=== PATIENT | female | born 1940 | race Caucasian/White ===

== ENCOUNTER 2020-11-01 08:30 | Outpatient (CLI) | payer MEDICARE, SELFPAY ==
--- NOTE | 2020-11-01 08:45 | XRR_ITS ---
PROCEDURE INFORMATION: Exam: XR Lumbosacral Spine Exam date and time: 11/01/2020 8:45 AM Age: 80 years old Clinical indication: Low back pain; Patient HX: Pain radiating down lt. Leg. Has numbness in lt foot; Additional info: M54.5 - low back pain TECHNIQUE: Imaging protocol: XR of the lumbosacral spine. Views: 2 or 3 views. COMPARISON: No relevant prior studies available. FINDINGS: Bones/joints: 14 degrees leftward lumbar curvature. Degenerative endplate changes asymmetric to the right. The vertebral body stature is maintained. Disc space narrowing at L3-L4, L4-L5, and L5-S1. Facets are intact. Soft tissues: Unremarkable. Vasculature: Arterial calcifications. Calcifications in the mid abdomen are most likely phleboliths. XR/XR lumbar spine 2-3V* [id number] IMPRESSION: 1. No fracture or acute finding. 2. Scoliosis and degenerative changes.
--- NOTE | 2020-11-01 08:45 | USCV_ITS ---
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 Technologist: Polina White [place] [facility] [place] PAIN IN LEFT LEG Risk Factors: Previous Vascular Surgery: RIGHT LEFT BP: 160.0 / 71.00 BP: 169.0/ 69.00 0 0 Waveform Velocity (cm/s) Velocity (cm/s) Waveform Iliac Prox 80.6 Biphasic Iliac Mid 97.5 Biphasic Iliac Distal 102.2 Biphasic HR OPERATIONS ADVISOR 48.5 Biphasic SFA Prox 49.7 Biphasic SFA Mid 55.8 Biphasic SFA Dist 33.2 Biphasic POP 33.6 Monophasic RECOVERY ADVOCATE 28.0 Monophasic DPA 37.6 Monophasic FINDINGS RT BRACH 160/71 LT BRACH 169/69 LT RECOVERY ADVOCATE >220 LT DPA 120 Noncompressible vessels in the left ankle Moderate diffuse plaques in the iliac and femoral arteries on the left side CONCLUSIONS Noncompressible vessels in the left ankle Patent iliac, femoral, popliteal and infrapopliteal vessels on the left side Moderate diffuse plaques in the iliac and femoral arteries Consider TBI to further evaluate the peripheral arteries Dr David Clarke MD FAC (Electronically Signed) Final Date: 01 November 2020 14:44 S
[2020-11-01 11:15] LABS: 25 Hydroxy Vitamin D 89 ng/mL (30-100); Anion Gap 15.8 (5-19); Blood Urea Nitrogen 15 mg/dL (8-23); Calcium 9.4 mg/dL (8.5-10.5); Carbon Dioxide 25 mmol/L (22-29); Chloride 101 mmol/L (98-107); Chol HDL Ratio 2.31 mg/dL (0.0-4.40); Cholesterol 208 mg/dL (0-200); Glucose 81 mg/dL (65-115); HDL Cholesterol 90 mg/dL (60-100); LDL Cholesterol Calculated 106 mg/dL (50-129); LDL HDL Ratio 1.18 RATIO (0.00-3.22); Osmolality Calculated 284 mOsm/kg (285-295); Potassium 4.8 mmol/L (3.5-5.1); Sodium 137 mmol/L (136-145); Triglycerides 59 mg/dL (0-150)
== END 2020-11-01 08:31 | disposition home or self-care (01) ==
PROVIDERS: PCP Nurse Practitioner Family; Visit Provider Nurse Practitioner Family
DX: M54.5 Low back pain (principal); E55.9 Vitamin D deficiency, unspecified; I10 Essential (primary) hypertension; E78.5 Hyperlipidemia, unspecified; M41.86 Other forms of scoliosis, lumbar region; M79.605 Pain in left leg; I70.8 Atherosclerosis of other arteries
CPT/HCPCS: 36415; 72100; 80048; 80061; 82306; 93926

== ENCOUNTER → 2020-11-08 11:49 | Outpatient (BNVA) | payer MEDICARE, SELFPAY | PROVIDERS: PCP Nurse Practitioner Family; Referring Provider Nurse Practitioner Family; Visit Provider Specialist | DX: S62.102A Fracture of unspecified carpal bone, left wrist, initial encounter for closed fracture (principal); W19.XXXA Unspecified fall, initial encounter; Z46.89 Encounter for fitting and adjustment of other specified devices; S52.592D Other fractures of lower end of left radius, subsequent encounter for closed fracture with routine healing; X58.XXXD Exposure to other specified factors, subsequent encounter | CPT/HCPCS: 73110; 97760; L3982 ==

== ENCOUNTER 2020-11-08 16:01 | Outpatient (CLI) | payer MEDICARE, SELFPAY | END 2020-11-08 16:02 | disposition home or self-care (01) | LOC: SPT 16:02 | PROVIDERS: PCP Nurse Practitioner Family; Visit Provider Specialist | DX: Z46.89 Encounter for fitting and adjustment of other specified devices (principal); S52.592D Other fractures of lower end of left radius, subsequent encounter for closed fracture with routine healing; X58.XXXD Exposure to other specified factors, subsequent encounter | CPT/HCPCS: 97760; L3982 ==

== ENCOUNTER → 2020-11-22 08:17 | Outpatient (BNVA) | payer MEDICARE, SELFPAY | PROVIDERS: PCP Nurse Practitioner Family; Visit Provider Specialist | DX: S52.502A Unspecified fracture of the lower end of left radius, initial encounter for closed fracture (principal); S52.602A Unspecified fracture of lower end of left ulna, initial encounter for closed fracture; X58.XXXA Exposure to other specified factors, initial encounter | CPT/HCPCS: 73110 ==

== ENCOUNTER → 2020-12-15 09:58 | Outpatient (BNVA) | payer MEDICARE, SELFPAY | PROVIDERS: PCP Nurse Practitioner Family; Visit Provider Specialist | DX: S52.502D Unspecified fracture of the lower end of left radius, subsequent encounter for closed fracture with routine healing (principal); W19.XXXD Unspecified fall, subsequent encounter | CPT/HCPCS: 73110 ==

== ENCOUNTER 2021-01-12 14:45 | Outpatient (CLI) | payer MEDICARE, SELFPAY ==
--- NOTE | 2021-01-12 14:59 | XRR_ITS ---
PROCEDURE INFORMATION: Exam: XR Chest Exam date and time: 01/12/2021 2:59 PM Age: 80 years old Clinical indication: Shortness of breath; Prior surgery; Surgery type: Heart surgery; Patient HX: SOB, cough, leg weakness x 1.5 month. Heart monitor x 7 days, history of super ventricular tachcardia; Additional info: R06.02 - shortness of breath TECHNIQUE: Imaging protocol: XR of the chest. Views: 2 views. COMPARISON: No relevant prior studies available. FINDINGS: Tubes, catheters and devices: Recording device in the anterior mid chest wall. Lungs: Emphysema with mild chronic interstitial changes. Mild atelectasis in the lung bases. Multiple tiny calcified granulomas in both lungs. Pleural spaces: Unremarkable. No pleural effusion. No pneumothorax. Heart/Mediastinum: Unremarkable. No cardiomegaly. Bones/joints: Demineralization of the bones. Mild scoliosis. No fracture identified. XR/XR chest 2V* [id number] IMPRESSION: 1. No acute finding.
[2021-01-12 15:25] LABS: Basophils # 0.1 10^3/uL (0.0-0.1); Basophils % 1.1 %; Eosinophils # 0.3 10^3/uL (0.0-0.8); Eosinophils % 3.4 %; Hematocrit 35.3 % (37.0-47.0); Hemoglobin 11.7 g/dL (11.5-15.3); Lymphocytes # 1.5 10^3/uL (0.8-4.8); Lymphocytes % 21.1 %; Mean Corpuscular HGB Conc 33.1 g/dL (30.0-36.0); Mean Corpuscular Hemoglobin 32.1 pg (28.0-34.0); Mean Corpuscular Volume 96.7 fl (81-99); Monocytes % 13.7 %; Neutrophils # 4.41 10^3/uL (1.8-7.7); Neutrophils % 60.4 %; Nucleated Red Blood Cells % 0 %; Platelet Count 282 10^3/cmm (130-400); Red Blood Count 3.65 10^6/uL (4.1-5.3); Red Cell Distribution Width 11.9 % (12.1-15.1); White Blood Count 7.3 10^3/uL (4.0-10.0)
[2021-01-12 15:59] LABS: Alanine Aminotransferase 37 U/L (0-33); Albumin Level 3.9 g/dL (3.5-5.2); Alkaline Phosphatase 77 IU/L (35-105); Anion Gap 16.2 (5-19); Aspartate Amino Transferase 22 U/L (0-32); Carbon Dioxide 23 mmol/L (22-29); Chloride 98 mmol/L (98-107); Globulin 2.9 g/dL (1.3-4.6); Glucose 92 mg/dL (65-115); Potassium 4.2 mmol/L (3.5-5.1); Sodium 133 mmol/L (136-145); Total Bilirubin 0.2 mg/dL (0.15-1.2); Total Protein 6.8 g/dL (6.6-8.7)
[2021-01-12 16:17] LABS: Blood Urea Nitrogen 20 mg/dL (8-23); Calcium 9.4 mg/dL (8.5-10.5); Osmolality Calculated 278 mOsm/kg (285-295)
== END 2021-01-12 14:46 | disposition home or self-care (01) ==
PROVIDERS: PCP Nurse Practitioner Family; Visit Provider Nurse Practitioner Family
DX: R06.00 Dyspnea, unspecified (principal); R53.83 Other fatigue; R06.02 Shortness of breath
CPT/HCPCS: 71046; 80053; 85025

== ENCOUNTER → 2021-05-24 09:24 | Outpatient (BNVA) | payer MEDICARE, SELFPAY | PROVIDERS: PCP Nurse Practitioner Family; Visit Provider Nurse Practitioner Family | DX: R39.9 Unspecified symptoms and signs involving the genitourinary system (principal); R31.9 Hematuria, unspecified; R05.9 Cough, unspecified; R30.0 Dysuria; N39.0 Urinary tract infection, site not specified | CPT/HCPCS: 81000; 87086 ==

== ENCOUNTER → 2021-07-11 11:30 | Outpatient (BNVA) | payer MEDICARE, SELFPAY | PROVIDERS: PCP Nurse Practitioner Family; Visit Provider Internal Medicine Pulmonary Disease | DX: R05.9 Cough, unspecified (principal); R06.00 Dyspnea, unspecified | CPT/HCPCS: 87015; 87070; 87116; 87205; 87206; 87801 ==

== ENCOUNTER 2021-07-20 10:37 | Outpatient (CLI) | payer MEDICARE, SELFPAY ==
--- NOTE | 2021-07-20 11:00 | CT_ITS ---
WS: [id number] CT CHEST CT-HIGH RESOLUTION, NONCONTRAST. HISTORY: Covid one year ago. Persistent short of breath. Technique: High-resolution chest CT is performed in inspiration, expiration, supine and prone positio cori. All CT scans at [facility] use at least one of these dose optimization techniques: automated exposure control; mA and/or kV adjustment per patient size (includes targeted exams where dose is mat ched to clinical indication); or iterative reconstruction. DLP: 982.55 mGy.cm COMPARISON: Chest radiograph 01/12/2021 Findings: Persistent area of subsegmental atelectasis in the posterior RIGHT apex. Does not improve w ith prone positioning. There are a few very scattered micronodules throughout both lungs in the perip noel. These measure only 2 to 3 mm. Lungs are hyperinflated. No bronchiectasis or honeycombing. There is a spiculated soft tissue nodule with calcification in the RIGHT lower lobe measuring 16 x 13 mm. This mass is centrally positioned. There are few additional scattered calcified granulomata thro ughout both lungs. Contiguous axial imaging through the lungs is limited as there is significant lalita on artifact on several of the sequences. Heavy calcification thoracic aorta. No significant aneurysmal dilatation. Heart is moderately enlarge d. Mild dilatation of the RIGHT renal pelvis. This is probably an extrarenal pelvis the calyces are n ot dilated. Adrenal glands cannot be evaluated due to the significant breathing artifact. Does appear to be a prior cholecystectomy. CT/CT chest wo con [id number] Impression: 1. Quality of this examination is significantly limited by motion artifact. 2. No honeycombing or bronchiectasis. 3. Spiculated nodule RIGHT lower lobe centered towards the hilum. Mass measure s 16 x 13 mm and is suspicious for neoplasm. Recommend PET/CT imaging and [facility] hoscopy for tissue sampling. 4. Prior cholecystectomy.
== END 2021-07-20 10:38 | disposition home or self-care (01) ==
LOC: RAD 10:46
PROVIDERS: PCP Nurse Practitioner Family; Visit Provider Internal Medicine Pulmonary Disease
DX: R05.3 Chronic cough (principal); R06.02 Shortness of breath; Z86.16 Personal history of COVID-19; Z90.49 Acquired absence of other specified parts of digestive tract; R91.1 Solitary pulmonary nodule
CPT/HCPCS: 71250

== ENCOUNTER → 2021-07-21 10:24 | Outpatient (BNVA) | payer MEDICARE, SELFPAY | PROVIDERS: PCP Nurse Practitioner Family; Visit Provider Internal Medicine Pulmonary Disease | DX: J44.9 Chronic obstructive pulmonary disease, unspecified (principal); R06.00 Dyspnea, unspecified | CPT/HCPCS: 87635 ==

== ENCOUNTER 2021-07-28 11:09 | Outpatient (CLI) | payer MEDICARE, SELFPAY ==
--- NOTE | 2021-07-28 10:50 | PFTS_ITS ---
Date of Study:07/28/21 Date of Dictation: MECHANICS: Forced vital capacity (FVC) is . Forced expiratory volume in one second (FEV1) is . FEV1/FVC is . FLOW VOLUME LOOP: . LUNG VOLUMES: Total lung capacity (TLC) is . Residual volume (RV) is . DIFFUSING CAPACITY FOR CARBON MONOXIDE: . INTERPRETATION: The pulmonary function tests are . mechanics and lung volumes. Gas exchange (DLCO) is . MTDD
--- NOTE | 2021-07-28 13:10 | PFTS_ITS ---
Date of Study:07/28/21 Date of Dictation: MECHANICS: Forced vital capacity (FVC) is normal. Forced expiratory volume in one second (FEV1) is reduced. FEV1/FVC is reduced. FLOW VOLUME LOOP: Reduced flow at all lung volumes with significant scooping. LUNG VOLUMES: Total lung capacity (TLC) is normal. Residual volume (RV) is increased. DIFFUSING CAPACITY FOR CARBON MONOXIDE: Moderately reduced. INTERPRETATION: The postbronchodilator spirometry is consistent with moderate airflow obstruction. There is a significant postbronchodilator response. Lung volumes are consistent with air trapping. Gas exchange (DLCO) is moderately reduced. MTDD
[2021-07-28 13:12] VITALS: O2SAT 94; O2SAT 95
== END 2021-07-28 11:10 | disposition home or self-care (01) ==
PROVIDERS: PCP Nurse Practitioner Family; Visit Provider Internal Medicine Pulmonary Disease
DX: R06.00 Dyspnea, unspecified (principal); J44.9 Chronic obstructive pulmonary disease, unspecified
CPT/HCPCS: 94060; 94726; 94729

== ENCOUNTER → 2021-08-08 12:41 | Outpatient (BNVA) | payer MEDICARE, SELFPAY | PROVIDERS: PCP Nurse Practitioner Family; Visit Provider Nurse Practitioner Family | DX: R30.0 Dysuria (principal); R31.9 Hematuria, unspecified | CPT/HCPCS: 81000; 87086 ==

== ENCOUNTER 2021-08-10 08:41 | Outpatient (CLI) | payer MEDICARE, SELFPAY ==
--- NOTE | 2021-08-10 09:51 | N.ONRAD NP_ITS ---
Radiation Oncology Consultation Patient Name: Angella Walls Date of : 1940 Date of Service: 08/10/2021 Attending Physician: Glynn Vines M.D. Angella Walls was seen for consultation this morning at the request of Carlos Rankin M.D. regarding possible stereotactic ablative body radiotherapy for the management of a recently diagnosed lung cancer. He was evaluated by her primary care physician for a chronic cough. She was referred to Carlos Rankin M.D. for further management. A high-resolution thoracic CT scan obtained on July 20, 2021 demonstrated a 1.6 cm x 1.3 cm right lower lobe nodule. Also described were bilateral micronodules measuring 2 to 3 mm. A PET scan (independently visualized in [facility]) ordered on July 23, 2021 confirmed the right lower lobe solid nodule (SUV 8.4). There was no metastatic disease reported. Pulmonary function testing identified an FEV1 of 1.99 L (48% of predicted) and a DLCO 25.6 mL/min/mmHg (49% of predicted). On account of the patient's high risk status for pneumothorax and poor lung function, a biopsy was not performed. The patient was evaluated for stereotactic ablative body radiotherapy. I discussed with Ms. Walls the [place] [employer] clinical stage IA2 (T1bN0) lung cancer specific to her disease. She is aware that the National Comprehensive Cancer Network Guidelines recommend surgical resection in operable patients. However, for patients deemed medically inoperable without lymphadenopathy, stereotactic radiotherapy is preferable. I reviewed the RTOG 0236 phase II trial that enrolled non-small cell lung cancer patients with peripheral T1 and T2 and medical conditions precluding surgical treatment to SABR. The 3-year primary tumor local control of 97% with an overall median survival of 48 months. I also discussed the SPACE trial that randomized stage I non-small cell lung cancer patients to SABR or conventional fractionated radiotherapy. Progression free survival was improved and a significant decrement in adverse events were documented in the SABR treatment arm. I would endorse an ultra-hypofractionated course of stereotactic radiotherapy. A 4-dimensional computed tomographic with contrast will be acquired for radiotherapy planning to delineate the gross tumor volume. The potential toxicities of stereotactic body radiotherapy to the lung were reviewed. The patient has verbalized understanding and would like to proceed as recommended. The patient's medical treatment plan was discussed with Carlos Rankin M.D. Signed by: Glynn Vines 08/10/2021 9:50:17 AM
[2021-08-10 10:15] LABS: Basophils # 0.1 10^3/uL (0.0-0.1); Basophils % 0.8 %; Eosinophils # 0.6 10^3/uL (0.0-0.8); Hematocrit 32.9 % (37.0-47.0); Hemoglobin 11.2 g/dL (11.5-15.3); Lymphocytes # 1.3 10^3/uL (0.8-4.8); Lymphocytes % 16.1 %; Mean Corpuscular Hemoglobin 31.9 pg (28.0-34.0); Mean Corpuscular Volume 93.7 fl (81-99); Mean Platelet Volume 8.4 fL (7.4-10.4); Monocytes # 1.1 10^3/uL (0.2-0.9); Monocytes % 12.6 %; Neutrophils # 5.23 10^3/uL (1.8-7.7); Neutrophils % 62.8 %; Nucleated Red Blood Cells % 0 %; Platelet Count 293 10^3/cmm (130-400); Red Blood Count 3.51 10^6/uL (4.1-5.3); Red Cell Distribution Width 12.9 % (12.1-15.1); White Blood Count 8.3 10^3/uL (4.0-10.0)
[2021-08-10 10:54] LABS: Alanine Aminotransferase 26 U/L (0-33); Albumin Level 4.3 g/dL (3.5-5.2); Alkaline Phosphatase 65 IU/L (35-105); Blood Urea Nitrogen 15 mg/dL (8-23); Calcium 9.9 mg/dL (8.5-10.5); Carbon Dioxide 24 mmol/L (22-29); Chloride 94 mmol/L (98-107); Globulin 3.2 g/dL (1.3-4.6); Glucose 89 mg/dL (65-115); Osmolality Calculated 272 mOsm/kg (285-295); Sodium 131 mmol/L (136-145); Total Bilirubin 0.3 mg/dL (0.15-1.2); Total Protein 7.5 g/dL (6.6-8.7)
[2021-08-10 11:02] LABS: Anion Gap 17.8 (5-19); Potassium 4.8 mmol/L (3.5-5.1)
[2021-08-10 11:25] LABS: Aspartate Amino Transferase 20 U/L (0-32)
== END 2021-08-10 08:42 | disposition home or self-care (01) ==
PROVIDERS: PCP Nurse Practitioner Family; Visit Provider Radiology Radiation Oncology
DX: C34.31 Malignant neoplasm of lower lobe, right bronchus or lung (principal)
CPT/HCPCS: 36415; 80053; 85025

== ENCOUNTER 2021-08-19 06:31 | Outpatient (RCR) | payer MEDICARE, SELFPAY ==
--- NOTE | 2021-08-15 | CT_ITS ---
Radiation Therapy Planning CT images; total exam DLP: 573.21 mGy-cm MTDD
== END 2021-08-20 23:59 | disposition home or self-care (01) ==
LOC: ONCMED 06:31
PROVIDERS: PCP Nurse Practitioner Family; Visit Provider Radiology Radiation Oncology
DX: Z51.0 Encounter for antineoplastic radiation therapy (principal); C34.31 Malignant neoplasm of lower lobe, right bronchus or lung; C78.02 Secondary malignant neoplasm of left lung; Z79.899 Other long term (current) drug therapy
CPT/HCPCS: 77300; 77301; 77334; 77338; 77373; 77470; Q9967

== ENCOUNTER 2021-08-22 08:06 | Oncology outpatient (recurring) (ONCR) | payer MEDICARE, SELFPAY ==
--- NOTE | 2021-08-22 08:44 | N.ONRD TS_ITS ---
Stereotactic Ablative Radiotherapy Treatment Summary Patient Name: Angella Walls Date of : 1940 Date of Service: 08/22/2021 Attending Physician: Glynn Vines M.D. Angella Walls has completed stereotactic ablative body radiotherapy for the management of a clinical stage IA2 (T1bN0) lung cancer. She was evaluated by her primary care physician for a chronic cough. A high-resolution thoracic CT scan obtained on July 20, 2021 demonstrated a 1.6 cm x 1.3 cm right lower lobe nodule. Also described were bilateral micronodules measuring 2 to 3 mm. A PET scan ordered on July 23, 2021 confirmed the right lower lobe solid nodule (SUV 8.4). There was no metastatic disease reported. Pulmonary function testing identified an FEV1 of 1.99 L (48% of predicted) and a DLCO 25.6 mL/min/mmHg (49% of predicted). On account of the patient's high risk status for pneumothorax and poor lung function, a biopsy was not performed. SABR was delivered between the dates of August 17, 2021 through August 22, 2021. A prescribed dose of 54 Gy was delivered in three fractions encompassing 7 elapsed days. The right lower-lobe lesion was treated utilizing an intensity modulated radiotherapy plan with a step and shoot treatment technique. The plan required seven gantry angles (160???, 180???, 200???, 220???, 240???, 280???, and 300??? with a collimator rotation of 0??? in a partial arc design. The field sizes measured spanned 4.5 cm x 3.5 cm to 5.3 cm x 3.5 cm. The SSDs measured a minimum of 86.2 cm to a maximum of 93.2 cm. The ports delivered 1137 MU, 757 MU, 878 MU, 1134 MU, 923 MU, 883 MU, and 774 MU corresponding to the gantry angles described. Low energy photons were prescribed. All treatments were performed with the Accertify linear accelerator and an isocentric technique. The dose was calculated by Anisotropic Analytic Algorithm with the plan normalized to deliver 100% of the prescription dose to 95% of the planning target volume. Signed by: Glynn Vines 08/22/2021 8:43:08 AM
--- NOTE | 2021-08-22 09:16 | ONCRAD TMN_ITS ---
Stereotactic Ablative Radiotherapy Treatment Management Note Patient Name: Angella Walls Date of : 1940 Date of Service: 08/22/2021 Attending Physician: Glynn Vines M.D. Angella Walls is an 81 year-old white female diagnosed with a recently diagnosed clinical stage IA2 (T1bN0) lung cancer. She was evaluated by her primary care physician for a chronic cough. A high-resolution thoracic CT scan obtained on July 20, 2021 demonstrated a 1.6 cm x 1.3 cm right lower lobe nodule. Also described were bilateral micronodules measuring 2 to 3 mm. A PET scan ordered on July 23, 2021 confirmed the right lower lobe solid nodule (SUV 8.4). There was no metastatic disease reported. Pulmonary function testing identified an FEV1 of 1.99 L (48% of predicted) and a DLCO 25.6 mL/min/mmHg (49% of predicted). On account of the patient's high risk status for pneumothorax and poor lung function, a biopsy was not performed. The patient has received 54 Gy of a prescribed 54 [place] (SABR) delivered with an intensity modulated radiotherapy plan utilizing a step and shoot treatment technique. Upon review of systems, she denied any changes in her pulmonary function. On physical examination, the patient weighed 121 lbs. Her temperature was 96.9 ???F and the blood pressure was 148/62 mmHg. The pulse was 62 bpm and her respiratory rate was 20. The oxygen saturation while breathing room air was 98%. There was no erythema within the treatment barth. Stereotactic ablative body radiotherapy was completed today. She will return for post-radiotherapy evaluation in 1 month. Signed by: Glynn Vines 08/22/2021 9:15:25 AM
== END 2021-09-20 23:59 | disposition home or self-care (01) ==
PROVIDERS: PCP Nurse Practitioner Family; Visit Provider Radiology Radiation Oncology
DX: Z51.0 Encounter for antineoplastic radiation therapy (principal); C34.31 Malignant neoplasm of lower lobe, right bronchus or lung; Z79.899 Other long term (current) drug therapy
CPT/HCPCS: 77373; 77435; 99215

== ENCOUNTER 2021-09-21 09:43 | Oncology outpatient (recurring) (ONCR) | payer MEDICARE, SELFPAY ==
--- NOTE | 2021-09-21 10:19 | ONCRAD EPV_ITS ---
Radiation Oncology Follow-Up Note Patient Name: Angella Walls Date of : 1940 Date of Service: 09/21/2021 Attending Physician: Glynn Vines M.D. Angella Walls returned to my office this morning for a routinely scheduled follow-up appointment. She completed stereotactic ablative body radiotherapy in August for the management of a clinical stage IA2 (T1bN0) lung cancer. She was evaluated by her primary care physician for a chronic cough. A high-resolution thoracic CT scan obtained on July 20, 2021 demonstrated a 1.6 cm x 1.3 cm right lower lobe nodule. Also described were bilateral micronodules measuring 2 to 3 mm. A PET scan ordered on July 23, 2021 confirmed the right lower lobe solid nodule (SUV 8.4). There was no metastatic disease reported. Pulmonary function testing identified an FEV1 of 1.99 L (48% of predicted) and a DLCO 25.6 mL/min/mmHg (49% of predicted). On account of the patient's high risk status for pneumothorax and poor lung function, a biopsy was not performed. SABR was delivered between the dates of August 17, 2021 through August 22, 2021. A prescribed dose of 54 Gy was delivered in three fractions encompassing 7 elapsed days. On review of systems, she denied any new pulmonary complaints. On physical examination, she weighed 121 lbs. The temperature was 96.9???F and her blood pressure was 137/53 mmHg. The pulse was 53 bpm and her respiratory rate was 18 breaths per minute. Oxygen saturation while breathing ambient air was 99 %. Decreased breath sounds were auscultated in the right posterior lung barth. In summary, Ms. Walls returned for a routine post-radiotherapy follow-up. She will be scheduled for CT imaging to assess treatment response consistent with NCCN Guidelines. Signed by: Dr. Glynn Vines 09/21/2021 10:18:06 AM
== END 2021-10-20 23:59 | disposition home or self-care (01) ==
PROVIDERS: PCP Nurse Practitioner Family; Visit Provider Radiology Radiation Oncology
DX: C34.31 Malignant neoplasm of lower lobe, right bronchus or lung (principal)

== ENCOUNTER → 2021-10-05 10:00 | Outpatient (BNVA) | payer MEDICARE, SELFPAY | PROVIDERS: PCP Nurse Practitioner Family; Visit Provider Internal Medicine Pulmonary Disease | DX: J44.9 Chronic obstructive pulmonary disease, unspecified (principal); R06.02 Shortness of breath; R05.9 Cough, unspecified; Z87.891 Personal history of nicotine dependence; R06.00 Dyspnea, unspecified; I35.0 Nonrheumatic aortic (valve) stenosis; I48.20 Chronic atrial fibrillation, unspecified; Z79.01 Long term (current) use of anticoagulants | CPT/HCPCS: 82785; 85025; 86003; 87070; 87205 ==

== ENCOUNTER → 2021-10-11 09:55 | Outpatient (BNVA) | payer MEDICARE, SELFPAY | PROVIDERS: PCP Nurse Practitioner Family; Visit Provider Internal Medicine Pulmonary Disease | DX: J44.9 Chronic obstructive pulmonary disease, unspecified (principal) | CPT/HCPCS: 87070; 87077; 87184; 87205 ==

== ENCOUNTER → 2021-11-02 08:58 | Outpatient (BNVA) | payer MEDICARE, SELFPAY | PROVIDERS: PCP Nurse Practitioner Family; Visit Provider Internal Medicine Cardiovascular Disease | DX: E78.5 Hyperlipidemia, unspecified (principal); Z79.899 Other long term (current) drug therapy | CPT/HCPCS: 80061; 84450; 84460 ==

== ENCOUNTER 2021-11-22 10:40 | Outpatient (CLI) | payer MEDICARE, SELFPAY ==
--- NOTE | 2021-11-22 10:30 | CT_ITS ---
WS: [id number] CT CHEST TECHNIQUE: Noncontrast CT of the chest with coronal and sagittal reformatted images. CLINICAL INFORMATION: Follow-up lung cancer s/p SABR COMPARISON: PET/CT July 23, [address] chest June 2021 DLP: 566.[address] scans at [facility] use at least one of these dose optimization techniques: automated e xposure control; mA and/or kV adjustment per patient size (includes targeted exams where dose is matc hed to clinical indication); or iterative reconstruction. FINDINGS: Moderate chronic emphysematous changes. No acute pulmonary infiltrates. Fibrosis in the lung apices. Normal caliber thoracic aorta. Moderate aortic calcification. Coronary calcification. No mediastinal or hilar lymphadenopathy. Calcified anterior mediastinal and RIGHT hilar lymph nodes. Previously described FDG avid RIGHT lower lobe pulmonary nodule along the inferior hilum has decreas ed in size today. This measures approximately 7 mm compared to 16 mm previous. Associated increased s piculation about the nodule likely due to treatment-related changes. Findings compatible with interva l response to therapy. No evidence of progression. Normal GE junction. Cholecystectomy clips. Mild thoracic curve. Mild thoracic kyphosis. No axillary lymphadenopathy. Gallbladder and adrenal glands are normal. Fatty atrophy of the pancreas. CT/CT chest wo con [id number] IMPRESSION: 1. Residual RIGHT lower lobe spiculated nodule about the RIGHT inferior hilum today measuring 7 mm improved from previous consistent with interval response t o therapy. Recommend continued surveillance post treatment. Previously this jc sured 16 mm on the prior PET/CT. 2. No evidence of progressed disease. 3. Dense aortic calcification. 4. No mediastinal or hilar lymphadenopathy. 5. Prior cholecystectomy.
== END 2021-11-22 10:41 | disposition home or self-care (01) ==
LOC: RAD 10:40
PROVIDERS: PCP Nurse Practitioner Family; Visit Provider Radiology Radiation Oncology
DX: C34.90 Malignant neoplasm of unspecified part of unspecified bronchus or lung (principal); R91.1 Solitary pulmonary nodule; Z90.49 Acquired absence of other specified parts of digestive tract
CPT/HCPCS: 71250

== ENCOUNTER 2021-11-25 09:52 | Oncology outpatient (recurring) (ONCR) | payer MEDICARE, SELFPAY ==
--- NOTE | 2021-11-25 10:21 | ONCRAD EPV_ITS ---
Radiation Oncology Follow-Up Note Patient Name: Angella Walls Date of : 1940 Date of Service: 11/25/2021 Attending Physician: Glynn Vines M.D. Angella Walls returned to my office this morning for a routinely scheduled follow-up appointment. She completed stereotactic ablative body radiotherapy in August for the management of a clinical stage IA2 (T1bN0) lung cancer. She was evaluated by her primary care physician for a chronic cough. A high-resolution thoracic CT scan obtained on July 20, 2021 demonstrated a 1.6 cm x 1.3 cm right lower lobe nodule. Also described were bilateral micronodules measuring 2 to 3 mm. A PET scan ordered on July 23, 2021 confirmed the right lower lobe solid nodule (SUV 8.4). There was no metastatic disease reported. Pulmonary function testing identified an FEV1 of 1.99 L (48% of predicted) and a DLCO 25.6 mL/min/mmHg (49% of predicted). On account of the patient's high risk status for pneumothorax and poor lung function, a biopsy was not performed. SABR was delivered between the dates of August 17, 2021 through August 22, 2021. A prescribed dose of 54 Gy was delivered in three fractions encompassing [address] scan ordered on November 22, 2021 (independently reviewed in [facility]) described a reduction in the size of the right lower-lobe nodule (measured 7 mm). On review of systems, she denied any new pulmonary complaints. On physical examination, she weighed 119 lbs. The temperature was 97.4???F and her blood pressure was 164/59 mmHg. The pulse was 59 bpm and her respiratory rate was 18 breaths per minute. Oxygen saturation while breathing ambient air was 98 %. Bronchovesicular breath sounds were auscultated. In summary, Ms. Walls returned for a routine post-radiotherapy follow-up. She will continue follow-up consistent with NCCN Guidelines. I will order a thoracic CT scan in 3 months. Signed by: Dr. Glynn Vines 11/25/2021 10:19:51 AM
== END 2021-12-21 23:59 | disposition home or self-care (01) ==
PROVIDERS: PCP Nurse Practitioner Family; Visit Provider Radiology Radiation Oncology
DX: Z08 Encounter for follow-up examination after completed treatment for malignant neoplasm (principal); Z85.118 Personal history of other malignant neoplasm of bronchus and lung; R05.3 Chronic cough; Z92.3 Personal history of irradiation
CPT/HCPCS: 99213

== ENCOUNTER → 2021-12-01 09:40 | Outpatient (BNVA) | payer MEDICARE, SELFPAY | PROVIDERS: PCP Nurse Practitioner Family; Visit Provider Nurse Practitioner Family | DX: R30.0 Dysuria (principal); J06.9 Acute upper respiratory infection, unspecified | CPT/HCPCS: 81000 ==

== ENCOUNTER → 2021-12-21 08:18 | Outpatient (BNVA) | payer MEDICARE, SELFPAY | PROVIDERS: PCP Nurse Practitioner Family; Visit Provider Internal Medicine Pulmonary Disease | DX: J44.9 Chronic obstructive pulmonary disease, unspecified (principal); R05.9 Cough, unspecified; Z87.891 Personal history of nicotine dependence; R06.00 Dyspnea, unspecified; I35.0 Nonrheumatic aortic (valve) stenosis; I48.20 Chronic atrial fibrillation, unspecified; Z79.01 Long term (current) use of anticoagulants; J45.909 Unspecified asthma, uncomplicated; R91.1 Solitary pulmonary nodule; Z86.16 Personal history of COVID-19 | CPT/HCPCS: 99214 ==

== ENCOUNTER → 2022-01-10 10:28 | Outpatient (BNVA) | payer MEDICARE, SELFPAY | PROVIDERS: PCP Nurse Practitioner Family; Visit Provider Nurse Practitioner Family | DX: N39.0 Urinary tract infection, site not specified (principal); R31.9 Hematuria, unspecified | CPT/HCPCS: 81000; 87086 ==

== ENCOUNTER 2022-02-24 07:35 | Outpatient (CLI) | payer MEDICARE, SELFPAY ==
--- NOTE | 2022-02-24 08:00 | CT_ITS ---
WS: [id number] CT scan of the chest without IV contrast, additional two-dimensional coronal and sagittal reconstruct ion was performed. 02/24/2022 Clinical Data: Follow-up SABR Comparison: CT chest, 07/20/2021. DLP: 564.[address] scans at [facility] use at least one of these dose optimization techniques: automated e xposure control; mA and/or kV adjustment per patient size (includes targeted exams where dose is matc hed to clinical indication); or iterative reconstruction. Findings: Right lower lobe spiculated nodule is seen best on image 35 of 71 on the axial scan. The nodule now m easures 0.9 x 1.1 cm in greatest diameter which is probably a response to therapy. There is periphera l opacity in the right lower lobe which is probably atelectasis following treatment. No new nodules, masses or effusions are seen. The heart size is normal with no pericardial effusion. There are coronary artery and valvular calcifications present. The pulmonary arterial system and thor acic aorta demonstrate no abnormalities or dilatations. There is no axillary or significant mediastin al adenopathy. The upper abdomen shows no change from before. The bony thorax remains the same. CT/CT chest wo con [id number] Impression: 1. Slight decrease in size of the right lower lobe nodule 2 0.9 x 1.1 cm. 2. Peripheral right lower lobe opacity which is probably atelectasis.
== END 2022-02-24 07:36 | disposition home or self-care (01) ==
PROVIDERS: PCP Nurse Practitioner Family; Visit Provider Radiology Radiation Oncology
DX: C34.30 Malignant neoplasm of lower lobe, unspecified bronchus or lung (principal)
CPT/HCPCS: 71250

== ENCOUNTER 2022-03-01 08:41 | Oncology outpatient (recurring) (ONCR) | payer MEDICARE, SELFPAY ==
--- NOTE | 2022-03-01 09:25 | ONCRAD EPV_ITS ---
Radiation Oncology Follow-Up Note Patient Name: Angella Walls Date of : 1940 Date of Service: 03/01/2022 Attending Physician: Glynn Vines M.D. Angella Walls returned to my office this morning for a routinely scheduled follow-up appointment. She completed stereotactic ablative body radiotherapy in August for the management of a clinical stage IA2 (T1bN0) lung cancer. She was evaluated by her primary care physician for a chronic cough. A high-resolution thoracic CT scan obtained on July 20, 2021 demonstrated a 1.6 cm x 1.3 cm right lower lobe nodule. Also described were bilateral micronodules measuring 2 to 3 mm. A PET scan ordered on July 23, 2021 confirmed the right lower lobe solid nodule (SUV 8.4). There was no metastatic disease reported. Pulmonary function testing identified an FEV1 of 1.99 L (48% of predicted) and a DLCO 25.6 mL/min/mmHg (49% of predicted). On account of the patient's high risk status for pneumothorax and poor lung function, a biopsy was not performed. SABR was delivered between the dates of August 17, 2021 through August 22, 2021. A prescribed dose of 54 Gy was delivered in three fractions encompassing [address] scan (independently reviewed in [facility]) ordered on February 24, 2022 described a reduction in the size of the right lower-lobe nodule (measured 0.9 cm x 1.1 cm). On review of systems, she denied any new pulmonary complaints. On physical examination, she weighed 122 lbs. The temperature was 97.2???F and her blood pressure was 167/57 mmHg. The pulse was 75 bpm and her respiratory rate was 18 breaths per minute. Oxygen saturation while breathing ambient air was 97 %. In summary, Ms. Walls returned for a routine post-radiotherapy follow-up. She will continue follow-up consistent with NCCN Guidelines. I will order a thoracic CT scan in 3 months. Signed by: Dr. Glynn Vines 03/01/2022 9:23:46 AM
== END 2022-03-22 23:59 | disposition home or self-care (01) ==
PROVIDERS: PCP Nurse Practitioner Family; Visit Provider Radiology Radiation Oncology
DX: Z08 Encounter for follow-up examination after completed treatment for malignant neoplasm (principal); Z85.118 Personal history of other malignant neoplasm of bronchus and lung; Z92.3 Personal history of irradiation
CPT/HCPCS: 99213

== ENCOUNTER → 2022-03-08 09:17 | Outpatient (BNVA) | payer MEDICARE, SELFPAY | PROVIDERS: PCP Nurse Practitioner Family; Visit Provider Internal Medicine Pulmonary Disease | DX: R05.9 Cough, unspecified (principal); J44.9 Chronic obstructive pulmonary disease, unspecified; Z87.891 Personal history of nicotine dependence; R06.00 Dyspnea, unspecified; I35.0 Nonrheumatic aortic (valve) stenosis; I48.20 Chronic atrial fibrillation, unspecified; Z79.01 Long term (current) use of anticoagulants; J45.909 Unspecified asthma, uncomplicated; J82.83 Eosinophilic asthma | CPT/HCPCS: 99214 ==

== ENCOUNTER → 2022-04-20 15:30 | Outpatient (BNVA) | payer MEDICARE, SELFPAY | PROVIDERS: PCP Nurse Practitioner Family; Visit Provider Nurse Practitioner Family | DX: Z11.52 Encounter for screening for COVID-19 (principal); J02.9 Acute pharyngitis, unspecified; J06.9 Acute upper respiratory infection, unspecified | CPT/HCPCS: 87426; 87880 ==

== ENCOUNTER 2022-05-14 08:26 | Emergency (ER) | payer MEDICARE, SELFPAY ==
[2022-05-14 08:32] VITALS: BP 102/43; PULSE 71; RESP 18; TEMP 36.9
--- NOTE | 2022-05-14 08:38 | W.ED.GENADLT ---
Documented by User: Josy Wheeler PA-C 05/14/22 13:59 HPI - General Adult General: Chief complaint: General Medical Stated complaint: right side pain Time Seen by Provider: 05/14/22 08:37 Source: patient Mode of arrival: ambulatory Limitations: no limitations History of Present Illness: 82-year-old female with a history of COPD, lung cancer, hypertension, and A. fib presents to the ER today for not feeling well and right rib pain. Patient reports she has not been feeling well for the last several days. Family member in the room also notes patient has had a decreased appetite and overall not feeling well for several days. 2 days ago patient reports she nearly fell and went to grab something to hang on with her left arm. Patient reports she did not fall completely down and did not hit anything. At the time she had no immediate pain. By the next day patient started having right rib pain. Patient reports the pain in the right ribs radiates into her back. She reports it is worse with movement and deep breaths. Patient reports she has a cough that is slightly worse than her normal which makes the pain worse. She denies any fever or chills. She is short of breath however reports this is somewhat chronic. Patient is taking her inhalers at home as prescribed in addition to her nebulizer. She denies any recent sick contacts. Patient reports she was diagnosed with COVID April 22 however after several days felt back to normal. Review of Systems General: Reports: 10 or more systems reviewed and unremarkable except in HPI and below PFSH ED PFSH: Medical History Aortic stenosis Asthma-COPD overlap syndrome Chronic anticoagulation COPD (chronic obstructive pulmonary disease) Exertional dyspnea Fracture of distal end of left radius and ulna HTN (hypertension) Hx of cardiac murmur PVD (peripheral vascular disease) Surgical History History of hernia repair History of hysterectomy Family History Mother CAD (coronary artery disease) Stroke Father CAD (coronary artery disease) Lung disease Brother Diabetes Social History Smoking and tobacco status: former smoker Quit status (tobacco): has quit using tobacco Year quit tobacco: quit 1985 Former quit date comment: 1 ppd x 30 years Alcohol intake: never History of recent travel: Yes Current gender identity: Female Physical Exam Const: COMMON NORMALS: average body habitus, patient oriented x3, no limitations and alert; apparent distress (mild discomfort, mostly with deep breaths and movement) HENMT: COMMON NORMALS: normocephalic, atraumatic, external ears normal, Normal external nose present and moist oral mucous membranes HEAD & SCALP: normocephalic and atraumatic NOSE: Normal external nose present EXTERNAL EAR: Yes external ears normal Eye: COMMON NORMALS: conjunctivae normal CONJUNCTIVA: Yes conjunctivae normal Neck/C-Spine: COMMON NORMALS: full ROM and no lymphadenopathy Chest: OTHER: Patient has right lower chest tenderness to palpation. This is more lateral and at the lower level of the right breast wrapping into the back. Resp: COMMON NORMALS: normal respiratory effort and No retractions Cardio: COMMON NORMALS: regular rate, regular rhythm and No murmurs present (Cardio) RATE: regular rate RHYTHM: regular rhythm GI: COMMON NORMALS: Normal to inspection, nondistended, normoactive bowel sounds present, Soft to palpation and non-tender PALPATION: Yes Soft to palpation Back/Pelvis: COMMON NORMALS: no thoracic nor lumbar tenderness and thoraco-lumbar ROM normal Extremity: COMMON NORMALS: normal to inspection and full ROM Neuro: COMMON NORMALS: patient oriented x3 SENSORIUM/ORIENTATION: Yes alert Psych: COMMON NORMALS: mental status grossly normal, Normal thought process present and cooperative THOUGHT PROCESS: Normal thought process present Skin: COMMON NORMALS: no rashes or lesions noted and no wounds GENERAL SKIN EXAM: no rashes or lesions noted Course ED course: Patient initially reported right rib pain however admits to feeling not well prior to the near fall she had 2 days ago that caused the right rib pain. Patient has generalized weakness and decreased appetite. She does have a history of right lung cancer however had a scan done in March which showed everything was stable. We will do a general work-up today given patient's symptoms. We will do a chest x-ray and right rib study in addition to lab work. Patient's blood pressure is borderline low in ER today. Family does reports she typically runs in the 40-50 range diastolic. She has not been drinking and eating well for the last several days so we will go ahead and do fluids also to see if that improves. On room air, patient is satting 86-90 so we are going to go ahead and put patient on 2 L of oxygen at this time. I suspect some of this is due to the pain with deep breaths. Reevaluation(s): Reevaluation #1: Patient's chest x-ray did not indicate any abnormalities however given pain a CT was recommended. CT was completed and did show that the spiculated mass has almost doubled in size. Patient also has small pleural effusions. Findings were discussed with family. Time: 12:10 Reevaluation #2: I spoke with Dr. Ku regarding possible admission for hypoxia. Patient is requiring 3 L of oxygen at this time to maintain sats of [address] Ku feels that patient is okay to go home with oxygen today. Dr. Larsen can then follow-up with patient later this week. Time: 12:12 Reevaluation #3: I spoke with Dr. Larsen who does recommend patient be sent home on oxygen. His office will contact patient tomorrow regarding a follow-up this week. We will also send patient home with pain medication for the right rib pain. Time: 12:19 Additional Reevaluation(s): Dr. Larsen called back and after reviewing more patient's chart he would like patient placed on an antibiotic and an NSAID in addition to the [place]. He is concerned there could be some infection causing the pleural effusion, possibly from the recent COVID.. Vital Signs: Vital signs: Vital Signs Temperature 98.4 F 05/14/22 14:35 Pulse Rate 68 05/14/22 14:35 Respiratory Rate 17 05/14/22 14:35 Blood Pressure 115/50 05/14/22 14:35 Pulse Oximetry 95 05/14/22 14:35 Oxygen Delivery Me thod 05/14/22 13:57 Oxygen Flow Rate 2 05/14/22 13:57 MDM - General Adult Medical Decision Making Patient had a very slightly bumped white count. She also had a slightly low sodium however reports that is chronic. X-ray did not indicate any abnormalities however CT was performed given pain. It is noted on CT patient has some mild pleural effusions on the right side in addition to increased size of the tumor in the right lung. No fractures were visualized on CT either. I suspect patient's pain is secondary to the pleural effusion and possibly the tumor. Patient was also hypoxic the entire time she was in the ER. She required 2 to 3 L to stay 94% or above. We considered admission however Dr. Ku and Dr. Larsen felt patient was okay to go home with home oxygen. Dr. Fraser office will contact patient tomorrow regarding an appointment this week. Patient also sent home on Levaquin per Dr. Larsen and pain medication. For any new or worsening symptoms, please return to the ER. Family and patient verbalized understanding and were in agreement with this treatment plan. Lab Data 05/14/22 09:15 05/14/22 09:15 Radiology Impressions Chest X-Ray 05/14/22 08:53 IMPRESSION: 1. There is horizontal platelike scarring in the superior segment of the right lower lobe following the stereotactic ablative radiotherapy. 2. The hemidiaphragms are low and flattened. Ribs X-Ray 05/14/22 08:53 IMPRESSION: No right rib fracture is identified. If clinically indicated, CT would be more sensitive. Chest CT 05/14/22 10:33 IMPRESSION: 1. No right rib fracture is identified. The thoracic spine is intact. 2. Small bilateral pleural effusions are new since the last CT on 02/24/2022. 3. A spiculated pulmonary nodule in the superior segment of the right lower lobe is larger than it was on 02/24/2022. It is 2.0 x 1.6 x 1.4 cm (TR x AP x CC) (previously 1.0 x 0.7 x 0.8 cm on 02/24/2022) (series 7, image 33 and series 4, image 37). It is suggestive of recurrent malignancy following stereotactic ablated radiotherapy. PET/CT may be helpful for confirmation. A horizontal opacity extending transversely through the lesion is consistent with scarring from radiotherapy. Laboratory Results WBC 10.2 10^3/uL (4.0-10.0) H 05/14/22 09:15 RBC 3.44 10^6/uL (4.1-5.3) L 05/14/22 09:15 Hgb 10.7 g/dL (11.5-15.3) L 05/14/22 09:15 Hct 32.9 % (37.0-47.0) L 05/14/22 09:15 MCV 95.6 fl (81-99) 05/14/22 09:15 MCH 31.1 pg (28.0-34.0) 05/14/22 09:15 MCHC 32.5 g/dL (30.0-36.0) 05/14/22 09:15 RDW 12.4 % (12.1-15.1) 05/14/22 09:15 Plt Count 312 10^3/cmm (130-400) 05/14/22 09:15 MPV 8.9 fL (7.4-10.4) 05/14/22 09:15 Neut % (Auto) 73.9 % 05/14/22 09:15 Lymph % (Auto) 9.1 % 05/14/22 09:15 [place] % (Auto) 14.1 % 05/14/22 09:15 Eos % (Auto) 1.9 % 05/14/22 09:15 Baso % (Auto) 0.6 % 05/14/22 09:15 Neut # (Auto) 7.52 10^3/uL (1.8-7.7) 05/14/22 09:15 Lymph # (Auto) 0.9 10^3/uL (0.8-4.8) 05/14/22 09:15 [place] # (Auto) 1.4 10^3/uL (0.2-0.9) H 05/14/22 09:15 Eos # (Auto) 0.2 10^3/uL (0.0-0.8) 05/14/22 09:15 Baso # (Auto) 0.1 10^3/uL (0.0-0.1) 05/14/22 09:15 Nucleated RBC % (auto) 0 % 05/14/22 09:15 Nucleated RBCs # 0.0 /100WBC 05/14/22 09:15 Specimen Type Arterial 05/14/22 09:33 Sample Site Radial, left 05/14/22 09:33 ABG pH 7.46 (7.35-7.45) H 05/14/22 09:33 ABG pCO2 33.8 mmHg (35-45) L 05/14/22 09:33 ABG pO2 58.9 mmHg (80.0-100.0) L 05/14/22 09:33 ABG HCO3 24.2 mmol/L (22-26) 05/14/22 09:33 ABG O2 Saturation 92.0 05/14/22 09:33 ABG Base Excess 0.7 mmol/L (-2.0-2.0) 05/14/22 09:33 Matt Test Pos 05/14/22 09:33 A-a O2 Gradient 6.3 mmHg (5-10) 05/14/22 09:33 Hematocrit 31.9 % (37-47) L 05/14/22 09:33 Hgb O2 Saturation 90.1 % (95-100) L 05/14/22 09:33 Carboxyhemoglobin 1.8 %THgb (0.4-20.1) 05/14/22 09:33 Methemoglobin 0.4 % (0.4-1.5) 05/14/22 09:33 Total Hemoglobin 10.4 g/dL (12-16) L 05/14/22 09:33 Sodium 130.0 mmol/L (131-143) L 05/14/22 09:33 Potassium 4.1 mmol/L (3.5-5.0) 05/14/22 09:33 Glucose 107.0 mg/dL (70-115) 05/14/22 09:33 Ionized Calcium 1.2 mmol/L (1.1-1.4) 05/14/22 09:33 O2 Delivery Device Nc 05/14/22 09:33 O2 Liters/Min 2.0 % 05/14/22 09:33 Director Speech Language ID [place] 05/14/22 09:33 Sodium 129 mmol/L (136-145) L 05/14/22 09:15 Potassium 4.3 mmol/L (3.5-5.1) 05/14/22 09:15 Chloride 95 mmol/L (98-107) L 05/14/22 09:15 Carbon Dioxide 23 mmol/L (22-29) 05/14/22 09:15 Anion Gap 15.3 (5-19) 05/14/22 09:15 BUN 16 mg/dL (8-23) 05/14/22 09:15 Creatinine 0.9 mg/dL (0.5-0.9) 05/14/22 09:15 GFR Calculation Not Reportable 05/14/22 09:15 Glucose 103 mg/dL (65-115) 05/14/22 09:15 Calculated Osmolality 269 mOsm/kg (285-295) L 05/14/22 09:15 Lactic Acid 1.1 mmol/L (0.5-2.2) 05/14/22 09:15 Calcium 8.9 mg/dL (8.5-10.5) 05/14/22 09:15 Total Bilirubin 0.5 mg/dL (0.15-1.2) 05/14/22 09:15 AST 17 U/L (0-32) 05/14/22 09:15 ALT 13 U/L (0-33) 05/14/22 09:15 Alkaline Phosphatase 72 U/L (35-105) 05/14/22 09:15 Total Protein 7.2 g/dL (6.6-8.7) 05/14/22 09:15 Albumin 3.9 g/dL (3.5-5.2) 05/14/22 09:15 Globulin 3.3 g/dL (1.3-4.6) 05/14/22 09:15 Critical Care Time Critical Care Time: Critical Care Time: No Discharge Plan Discharge Patient Disposition: Home Clinical Impression: Hypoxia, Rib pain on right side, Mass of right lung, Pleural effusion on right Condition: Stable Prescriptions: New hydrocodone-acetaminophen 5-325 mg tablet 1 tab PO Q6H PRN (Reason: pain) Qty: 12 0RF levofloxacin 750 mg tablet 750 mg PO DAILY 7 Days Qty: 7 0RF No Action (DME) Fast Form Cock Up Splint See Rx Instructions .ROUTE .MEDSUPPLY Qty: 1 0RF Rx Instructions: As directed cyanocobalamin (vitamin B-12) 5,000 mcg capsule 5,000 mcg PO DAILY Nexletol 180 mg tablet 180 mg PO DAILY cholecalciferol (vitamin D3) 10 mcg (400 unit) capsule 10 mcg PO DAILY ezetimibe 10 mg tablet 10 mg PO DAILY [id number] 333-133-8.3 mg tablet 1 tab PO DAILY guaifenesin [Mucinex] 600 mg tablet extended release 12hr 600 mg PO Q12H PRN (Reason: congestion) Qty: 20 3RF magnesium oxide 400 mg magnesium tablet 400 mg PO DAILY losartan 25 mg tablet 25 mg PO BID Qty: 60 3RF doxycycline hyclate 100 mg tablet 100 mg PO BID Qty: 14 0RF diltiazem HCl [Cardizem] 120 mg tablet 120 mg PO DAILY Qty: 90 1RF Spiriva Respimat 2.5 mcg/actuation mist See Rx Instructions .ROUTE .COMPLEX Qty: 4 2RF Dose Instruction: INHALE TWO INHALATIONS BY MOUTH EVERY MORNING Rx Instructions: INHALE TWO INHALATIONS BY MOUTH EVERY MORNING albuterol sulfate 1.25 mg/3 mL solution for nebulization 1.25 mg inhalation QID PRN (Reason: shortness of breath or wheezing) Qty: 90 0RF albuterol sulfate [ProAir HFA] 90 mcg/actuation HFA aerosol inhaler 2 puff inhalation Q6H PRN (Reason: sob) Qty: 6.7 2RF Eliquis 5 mg tablet See Rx Instructions .ROUTE .COMPLEX Qty: 180 0RF Dose Instruction: TAKE ONE TABLET BY MOUTH TWICE DAILY Rx Instructions: TAKE ONE TABLET BY MOUTH TWICE DAILY fluticasone propion-salmeterol 500-50 mcg/dose blister with device See Rx Instructions .ROUTE .COMPLEX Qty: 60 0RF Dose Instruction: INHALE 1 DOSE BY MOUTH EVERY 12 HOURS Rx Instructions: INHALE 1 DOSE BY MOUTH EVERY 12 HOURS Discharge Orders: Discharge ED (Routine); Ordered 05/14/22 Ordered By: Josy Wheeler Other Ambulatory Orders: DME: Oxygen (Order) Location: None Selected Ordered By: Josy Wheeler Referrals: Shalonda Skelton FNP [Primary Care Provider] - Discharge Diet: Usual diet Discharge Activity: Increase activity as tolerated Patient Instructions: Opioid Safety, Pain Management Activity Restrictions/Additional Instructions: Take hydrocodone for pain. If you do not hear from Dr. Fraser office tomorrow, contact them in the afternoon for an appointment this week. Wear oxygen as prescribed. Return to the ER with new or worsening symptoms. Coding Level of Care Code ED Supervisor Heading for Chg Fwd Exam Comprehensive Documented by User: Isidro Venegas DO 05/15/22 06:16 HPI - General Adult General: Chief complaint: General Medical Stated complaint: right side pain Time Seen by Provider: 05/14/22 08:37 PFSH ED PFSH: Medical History Aortic stenosis Asthma-COPD overlap syndrome Chronic anticoagulation COPD (chronic obstructive pulmonary disease) Exertional dyspnea Fracture of distal end of left radius and ulna HTN (hypertension) Hx of cardiac murmur PVD (peripheral vascular disease) Surgical History History of hernia repair History of hysterectomy Family History Mother CAD (coronary artery disease) Stroke Father CAD (coronary artery disease) Lung disease Brother Diabetes Social History Smoking and tobacco status: former smoker Quit status (tobacco): has quit using tobacco Year quit tobacco: quit 1985 Former quit date comment: 1 ppd x 30 years Alcohol intake: never History of recent travel: Yes Current gender identity: Female Course Vital Signs: Vital signs: Vital Signs Temperature 98.4 F 05/14/22 14:35 Pulse Rate 68 05/14/22 14:35 Respiratory Rate 17 05/14/22 14:35 Blood Pressure 115/50 05/14/22 14:35 Pulse Oximetry 95 05/14/22 14:35 Oxygen Delivery Me thod 05/14/22 13:57 Oxygen Flow Rate 2 05/14/22 13:57 MDM - General Adult Medical Decision Making Patient had a very slightly bumped white count. She also had a slightly low sodium however reports that is chronic. X-ray did not indicate any abnormalities however CT was performed given pain. It is noted on CT patient has some mild pleural effusions on the right side in addition to increased size of the tumor in the right lung. No fractures were visualized on CT either. I suspect patient's pain is secondary to the pleural effusion and possibly the tumor. Patient was also hypoxic the entire time she was in the ER. She required 2 to 3 L to stay 94% or above. We considered admission however Dr. Ku and Dr. Larsen felt patient was okay to go home with home oxygen. Dr. Fraser office will contact patient tomorrow regarding an appointment this week. Patient also sent home on Levaquin per Dr. Larsen and pain medication. For any new or worsening symptoms, please return to the ER. Family and patient verbalized understanding and were in agreement with this treatment plan. Chart reviewed and patient discussed with midlevel. Agree with assessment and plan. Lab Data 05/14/22 09:15 05/14/22 09:15 Radiology Impressions Chest X-Ray 05/14/22 08:53 IMPRESSION: 1. There is horizontal platelike scarring in the superior segment of the right lower lobe following the stereotactic ablative radiotherapy. 2. The hemidiaphragms are low and flattened. Ribs X-Ray 05/14/22 08:53 IMPRESSION: No right rib fracture is identified. If clinically indicated, CT would be more sensitive. Chest CT 05/14/22 10:33 IMPRESSION: 1. No right rib fracture is identified. The thoracic spine is intact. 2. Small bilateral pleural effusions are new since the last CT on 02/24/2022. 3. A spiculated pulmonary nodule in the superior segment of the right lower lobe is larger than it was on 02/24/2022. It is 2.0 x 1.6 x 1.4 cm (TR x AP x CC) (previously 1.0 x 0.7 x 0.8 cm on 02/24/2022) (series 7, image 33 and series 4, image 37). It is suggestive of recurrent malignancy following stereotactic ablated radiotherapy. PET/CT may be helpful for confirmation. A horizontal opacity extending transversely through the lesion is consistent with scarring from radiotherapy. Laboratory Results WBC 10.2 10^3/uL (4.0-10.0) H 05/14/22 09:15 RBC 3.44 10^6/uL (4.1-5.3) L 05/14/22 09:15 Hgb 10.7 g/dL (11.5-15.3) L 05/14/22 09:15 Hct 32.9 % (37.0-47.0) L 05/14/22 09:15 MCV 95.6 fl (81-99) 05/14/22 09:15 MCH 31.1 pg (28.0-34.0) 05/14/22 09:15 MCHC 32.5 g/dL (30.0-36.0) 05/14/22 09:15 RDW 12.4 % (12.1-15.1) 05/14/22 09:15 Plt Count 312 10^3/cmm (130-400) 05/14/22 09:15 MPV 8.9 fL (7.4-10.4) 05/14/22 09:15 Neut % (Auto) 73.9 % 05/14/22 09:15 Lymph % (Auto) 9.1 % 05/14/22 09:15 [place] % (Auto) 14.1 % 05/14/22 09:15 Eos % (Auto) 1.9 % 05/14/22 09:15 Baso % (Auto) 0.6 % 05/14/22 09:15 Neut # (Auto) 7.52 10^3/uL (1.8-7.7) 05/14/22 09:15 Lymph # (Auto) 0.9 10^3/uL (0.8-4.8) 05/14/22 09:15 [place] # (Auto) 1.4 10^3/uL (0.2-0.9) H 05/14/22 09:15 Eos # (Auto) 0.2 10^3/uL (0.0-0.8) 05/14/22 09:15 Baso # (Auto) 0.1 10^3/uL (0.0-0.1) 05/14/22 09:15 Nucleated RBC % (auto) 0 % 05/14/22 09:15 Nucleated RBCs # 0.0 /100WBC 05/14/22 09:15 Specimen Type Arterial 05/14/22 09:33 Sample Site Radial, left 05/14/22 09:33 ABG pH 7.46 (7.35-7.45) H 05/14/22 09:33 ABG pCO2 33.8 mmHg (35-45) L 05/14/22 09:33 ABG pO2 58.9 mmHg (80.0-100.0) L 05/14/22 09:33 ABG HCO3 24.2 mmol/L (22-26) 05/14/22 09:33 ABG O2 Saturation 92.0 05/14/22 09:33 ABG Base Excess 0.7 mmol/L (-2.0-2.0) 05/14/22 09:33 Matt Test Pos 05/14/22 09:33 A-a O2 Gradient 6.3 mmHg (5-10) 05/14/22 09:33 Hematocrit 31.9 % (37-47) L 05/14/22 09:33 Hgb O2 Saturation 90.1 % (95-100) L 05/14/22 09:33 Carboxyhemoglobin 1.8 %THgb (0.4-20.1) 05/14/22 09:33 Methemoglobin 0.4 % (0.4-1.5) 05/14/22 09:33 Total Hemoglobin 10.4 g/dL (12-16) L 05/14/22 09:33 Sodium 130.0 mmol/L (131-143) L 05/14/22 09:33 Potassium 4.1 mmol/L (3.5-5.0) 05/14/22 09:33 Glucose 107.0 mg/dL (70-115) 05/14/22 09:33 Ionized Calcium 1.2 mmol/L (1.1-1.4) 05/14/22 09:33 O2 Delivery Device Nc 05/14/22 09:33 O2 Liters/Min 2.0 % 05/14/22 09:33 Director Speech Language ID [place] 05/14/22 09:33 Sodium 129 mmol/L (136-145) L 05/14/22 09:15 Potassium 4.3 mmol/L (3.5-5.1) 05/14/22 09:15 Chloride 95 mmol/L (98-107) L 05/14/22 09:15 Carbon Dioxide 23 mmol/L (22-29) 05/14/22 09:15 Anion Gap 15.3 (5-19) 05/14/22 09:15 BUN 16 mg/dL (8-23) 05/14/22 09:15 Creatinine 0.9 mg/dL (0.5-0.9) 05/14/22 09:15 GFR Calculation Not Reportable 05/14/22 09:15 Glucose 103 mg/dL (65-115) 05/14/22 09:15 Calculated Osmolality 269 mOsm/kg (285-295) L 05/14/22 09:15 Lactic Acid 1.1 mmol/L (0.5-2.2) 05/14/22 09:15 Calcium 8.9 mg/dL (8.5-10.5) 05/14/22 09:15 Total Bilirubin 0.5 mg/dL (0.15-1.2) 05/14/22 09:15 AST 17 U/L (0-32) 05/14/22 09:15 ALT 13 U/L (0-33) 05/14/22 09:15 Alkaline Phosphatase 72 U/L (35-105) 05/14/22 09:15 Total Protein 7.2 g/dL (6.6-8.7) 05/14/22 09:15 Albumin 3.9 g/dL (3.5-5.2) 05/14/22 09:15 Globulin 3.3 g/dL (1.3-4.6) 05/14/22 09:15 Discharge Plan Discharge Patient Disposition: Home Clinical Impression: Hypoxia, Rib pain on right side, Mass of right lung, Pleural effusion on right Condition: Stable Prescriptions: New hydrocodone-acetaminophen 5-325 mg tablet 1 tab PO Q6H PRN (Reason: pain) Qty: 12 0RF levofloxacin 750 mg tablet 750 mg PO DAILY 7 Days Qty: 7 0RF No Action (DME) Fast Form Cock Up Splint See Rx Instructions .ROUTE .MEDSUPPLY Qty: 1 0RF Rx Instructions: As directed cyanocobalamin (vitamin B-12) 5,000 mcg capsule 5,000 mcg PO DAILY Nexletol 180 mg tablet 180 mg PO DAILY cholecalciferol (vitamin D3) 10 mcg (400 unit) capsule 10 mcg PO DAILY ezetimibe 10 mg tablet 10 mg PO DAILY [id number] 333-133-8.3 mg tablet 1 tab PO DAILY guaifenesin [Mucinex] 600 mg tablet extended release 12hr 600 mg PO Q12H PRN (Reason: congestion) Qty: 20 3RF magnesium oxide 400 mg magnesium tablet 400 mg PO DAILY losartan 25 mg tablet 25 mg PO BID Qty: 60 3RF doxycycline hyclate 100 mg tablet 100 mg PO BID Qty: 14 0RF diltiazem HCl [Cardizem] 120 mg tablet 120 mg PO DAILY Qty: 90 1RF Spiriva Respimat 2.5 mcg/actuation mist See Rx Instructions .ROUTE .COMPLEX Qty: 4 2RF Dose Instruction: INHALE TWO INHALATIONS BY MOUTH EVERY MORNING Rx Instructions: INHALE TWO INHALATIONS BY MOUTH EVERY MORNING albuterol sulfate 1.25 mg/3 mL solution for nebulization 1.25 mg inhalation QID PRN (Reason: shortness of breath or wheezing) Qty: 90 0RF albuterol sulfate [ProAir HFA] 90 mcg/actuation HFA aerosol inhaler 2 puff inhalation Q6H PRN (Reason: sob) Qty: 6.7 2RF Eliquis 5 mg tablet See Rx Instructions .ROUTE .COMPLEX Qty: 180 0RF Dose Instruction: TAKE ONE TABLET BY MOUTH TWICE DAILY Rx Instructions: TAKE ONE TABLET BY MOUTH TWICE DAILY fluticasone propion-salmeterol 500-50 mcg/dose blister with device See Rx Instructions .ROUTE .COMPLEX Qty: 60 0RF Dose Instruction: INHALE 1 DOSE BY MOUTH EVERY 12 HOURS Rx Instructions: INHALE 1 DOSE BY MOUTH EVERY 12 HOURS Discharge Orders: Discharge ED (Routine); Ordered 05/14/22 Ordered By: Josy Wheeler Other Ambulatory Orders: DME: Oxygen (Order) Location: None Selected Ordered By: Josy Wheeler Referrals: Shalonda Skelton FNP [Primary Care Provider] - Discharge Diet: Usual diet Discharge Activity: Increase activity as tolerated Patient Instructions: Opioid Safety, Pain Management Activity Restrictions/Additional Instructions: Take hydrocodone for pain. If you do not hear from Dr. Fraser office tomorrow, contact them in the afternoon for an appointment this week. Wear oxygen as prescribed. Return to the ER with new or worsening symptoms. Coding Level of Care Code ED Supervisor Heading for Danielle Fwd Exam Comprehensive
--- NOTE | 2022-05-14 08:53 | XRR_ITS ---
PROCEDURE INFORMATION: Exam: XR Right Ribs Exam date and time: 05/14/2022 9:26 AM Age: 82 years old Clinical indication: Injury or trauma; Fall; Rib area; Blunt trauma (contusions or hematomas); Additional info: Rib pain after injury. Status post stereotactic ablative radiotherapy (SABR). TECHNIQUE: Imaging protocol: Radiologic exam of the Right ribs. Views: 2 views. COMPARISON: CT chest con [id number] 02/24/2022 7:45 AM FINDINGS: Bones/joints: Osteoporosis. No right rib fracture is identified. The right shoulder is unremarkable. Lungs: There is horizontal platelike scarring in the superior segment of the right lower lobe following the stereotactic ablative radiotherapy. The right lung is otherwise clear and hyperinflated. Heart/Mediastinum: Numerous mediastinal and bilateral hilar calcifications indicate remote granulomatous disease. Vasculature: The aorta is heavily calcified. Soft tissues: Normal. XR/XR ribs RT 2V* [id number] IMPRESSION: No right rib fracture is identified. If clinically indicated, CT would be more sensitive.
--- NOTE | 2022-05-14 08:53 | XRR_ITS ---
PROCEDURE INFORMATION: Exam: XR Chest Exam date and time: 05/14/2022 9:26 AM Age: 82 years old Clinical indication: Chest pressure and chest wall pain; Additional info: Hypoxic TECHNIQUE: Imaging protocol: Radiologic exam of the chest. Views: 2 views. COMPARISON: CT chest wo con [id number] 02/24/2022 7:45 AM FINDINGS: Lungs: There is horizontal platelike scarring in the superior segment of the right lower lobe following the stereotactic ablative radiotherapy. Minimal atelectasis at the left costophrenic sulci. The lungs are otherwise clear and hyperinflated. Pleural spaces: Unremarkable. No pleural effusion. No pneumothorax. Heart/Mediastinum: Numerous mediastinal and bilateral hilar calcifications indicate remote granulomatous disease. Vasculature: The aorta is heavily calcified. Diaphragm: The hemidiaphragms are low and flattened. Bones/joints: Osteoporosis. No fracture is identified. Right shoulder is unremarkable. Soft tissues: Unremarkable. XR/XR chest 2V* [id number] IMPRESSION: 1. There is horizontal platelike scarring in the superior segment of the right lower lobe following the stereotactic ablative radiotherapy. 2. The hemidiaphragms are low and flattened.
[2022-05-14 09:41] LABS: Basophils # 0.1 10^3/uL (0.0-0.1); Basophils % 0.6 %; Eosinophils # 0.2 10^3/uL (0.0-0.8); Eosinophils % 1.9 %; Hematocrit 32.9 % (37.0-47.0); Hemoglobin 10.7 g/dL (11.5-15.3); Lymphocytes # 0.9 10^3/uL (0.8-4.8); Lymphocytes % 9.1 %; Mean Corpuscular HGB Conc 32.5 g/dL (30.0-36.0); Mean Corpuscular Hemoglobin 31.1 pg (28.0-34.0); Mean Corpuscular Volume 95.6 fl (81-99); Mean Platelet Volume 8.9 fL (7.4-10.4); Monocytes # 1.4 10^3/uL (0.2-0.9); Monocytes % 14.1 %; Neutrophils # 7.52 10^3/uL (1.8-7.7); Neutrophils % 73.9 %; Nucleated Red Blood Cells % 0 %; Platelet Count 312 10^3/cmm (130-400); Red Blood Count 3.44 10^6/uL (4.1-5.3); Red Cell Distribution Width 12.4 % (12.1-15.1); White Blood Count 10.2 10^3/uL (4.0-10.0)
[2022-05-14 09:44] LABS: ABG PCO2 33.8 mmHg (35-45); ABG PH Result 7.46 (7.35-7.45); Alveolar-Arterial Oxygen Gradi 6.3 mmHg (5-10); Arterial Blood Gas Hematocrit 31.9 % (37-47); Base Excess ABG 0.7 mmol/L (-2.0-2.0); Blood Gas Allen Test Pos; Blood Gas Operator Identificat WALCI; Blood Gas Sample Site Radial, left; Blood Gas Sample Type Arterial; Carboxyhemoglobin 1.8 %THgb (0.4-20.1); HCO3 ABG 24.2 mmol/L (22-26); HGB O2 Sat 90.1 % (95-100); Ionized Calcium Level - ABG 1.2 mmol/L (1.1-1.4); Methemoglobin 0.4 % (0.4-1.5); Oxygen Device NC; PO2 ABG 58.9 mmHg (80.0-100.0); Potassium Level - ABG 4.1 mmol/L (3.5-5.0); Total Hemoglobin 10.4 g/dL (12-16)
[2022-05-14] MEDS: sodium chloride 0.9% 500 ML 999 ML IV (09:49)
[2022-05-14 10:11] LABS: Lactic Sepsis W/Reflex 1.1 mmol/L (0.5-2.2)
[2022-05-14 10:12] LABS: Alanine Aminotransferase 13 U/L (0-33); Albumin Level 3.9 g/dL (3.5-5.2); Alkaline Phosphatase 72 U/L (35-105); Aspartate Amino Transferase 17 U/L (0-32); Blood Urea Nitrogen 16 mg/dL (8-23); Calcium 8.9 mg/dL (8.5-10.5); Carbon Dioxide 23 mmol/L (22-29); Chloride 95 mmol/L (98-107); Globulin 3.3 g/dL (1.3-4.6); Glucose 103 mg/dL (65-115); Osmolality Calculated 269 mOsm/kg (285-295); Sodium 129 mmol/L (136-145); Total Bilirubin 0.5 mg/dL (0.15-1.2); Total Protein 7.2 g/dL (6.6-8.7)
[2022-05-14 10:24] LABS: Anion Gap 15.3 (5-19); Potassium 4.3 mmol/L (3.5-5.1)
--- NOTE | 2022-05-14 10:33 | CTR_ITS ---
PROCEDURE INFORMATION: Exam: CT Chest Without Contrast; Diagnostic Exam date and time: 05/14/2022 10:51 AM Age: 82 years old Clinical indication: Injury or trauma; Fall; Blunt trauma (contusions or hematomas); Additional info: Chest wall discomfort, r/u rib fracture. TECHNIQUE: Imaging protocol: Diagnostic computed tomography of the chest without contrast. Radiation optimization: All CT scans at this facility use at least one of these dose optimization techniques: automated exposure control; mA and/or kV adjustment per patient size (includes targeted exams where dose is matched to clinical indication); or iterative reconstruction. COMPARISON: 1. CT chest 02/24/2022. 2. CT chest 11/22/2021. RADIATION DOSE METRICS: Total DLP (mGy-cm): 340.6 FINDINGS: Limitations: All images are 5 mm thick. Thyroid: Unremarkable Trachea: Unremarkable. Bronchial tree: Unremarkable. Lungs: There is mild compressive atelectasis in both lower lobes adjacent to the pleural effusions. A spiculated pulmonary nodule in the superior segment of the right lower lobe is larger than it was on 02/24/2022. It is 2.0 x 1.6 x 1.4 cm (TR x AP x CC) (previously 1.0 x 0.7 x 0.8 cm on 02/24/2022) (series 7, image 33 and series 4, image 37). It is suggestive of recurrent malignancy following stereotactic ablated radiotherapy. PET/CT may be helpful for confirmation. A horizontal opacity extending transversely through the lesion is consistent with scarring from radiotherapy. Moderate emphysematous change. Pleural spaces: Small bilateral pleural effusions are new since the last CT on 02/24/2022. The right pleural effusion is 3.1 cm in depth in the midclavicular line. The left pleural effusion is 2.4 cm in depth in the midclavicular line. Heart: Heart size is normal. Coronary arteries: Coronary arteries are heavily calcified. Esophagus: Unremarkable. Mediastinal space: Numerous mediastinal and bilateral hilar calcifications indicate remote granulomatous disease. Lymph nodes: Unremarkable. No enlarged lymph nodes. Vasculature: Severe calcific atherosclerosis of the thoracic aorta. There is no aneurysm. Calcified plaque in the innominate artery, just proximal to the origin of the right common carotid artery, causes severe stenosis (series 5, image 15 and series 7, image 17). Nonemergent carotid duplex ultrasound is recommended. Gallbladder and bile ducts: Post cholecystectomy. Bones/joints: No right rib fracture is identified. The thoracic spine is intact. Soft tissues: Unremarkable. CT/CT chest wo con [id number] IMPRESSION: 1. No right rib fracture is identified. The thoracic spine is intact. 2. Small bilateral pleural effusions are new since the last CT on 02/24/2022. 3. A spiculated pulmonary nodule in the superior segment of the right lower lobe is larger than it was on 02/24/2022. It is 2.0 x 1.6 x 1.4 cm (TR x AP x CC) (previously 1.0 x 0.7 x 0.8 cm on 02/24/2022) (series 7, image 33 and series 4, image 37). It is suggestive of recurrent malignancy following stereotactic ablated radiotherapy. PET/CT may be helpful for confirmation. A horizontal opacity extending transversely through the lesion is consistent with scarring from radiotherapy.
[2022-05-14] MEDS: HYDROcodone-acetaminophen 5-325 mg Tablet 1 TAB PO (12:31)
[2022-05-14 12:37] VITALS: O2SAT 88; O2SAT 95
[2022-05-14 13:57] VITALS: BP 115/50; PULSE 71; RESP 18; TEMP 36.9
[2022-05-14 14:35] VITALS: BP 115/50; PULSE 68; RESP 17; TEMP 36.9; O2SAT 95
== END 2022-05-14 14:36 | disposition home or self-care (01) ==
PROVIDERS: Emergency Provider Physician Assistant; PCP Nurse Practitioner Family
DX: R07.81 Pleurodynia (principal); R09.02 Hypoxemia; R91.8 Other nonspecific abnormal finding of lung field; J90 Pleural effusion, not elsewhere classified; Z79.01 Long term (current) use of anticoagulants; J44.9 Chronic obstructive pulmonary disease, unspecified; I10 Essential (primary) hypertension; Z87.891 Personal history of nicotine dependence
CPT/HCPCS: 36600; 71046; 71100; 71250; 80051; 80053; 82330; 82805; 83605; 85025; 96360; 99285; J7040

== ENCOUNTER 2022-05-19 10:12 | Oncology outpatient (recurring) (ONCR) | payer MEDICARE, SELFPAY ==
--- NOTE | 2022-05-19 11:06 | ONCRAD EPV_ITS ---
Radiation Oncology Follow-Up Note Patient Name: Angella Walls Date of : 1940 Date of Service: 05/19/2022 Attending Physician: Glynn Vines M.D. Angella Walls returned to my office this morning to discuss recent thoracic CT imaging. She completed stereotactic ablative body radiotherapy in August for the management of a clinical stage IA2 (T1bN0) lung cancer. She was evaluated by her primary care physician for a chronic cough. A high-resolution thoracic CT scan obtained on July 20, 2021 demonstrated a 1.6 cm x 1.3 cm right lower lobe nodule. Also described were bilateral micronodules measuring 2 to 3 mm. A PET scan ordered on July 23, 2021 confirmed the right lower lobe solid nodule (SUV 8.4). There was no metastatic disease reported. Pulmonary function testing identified an FEV1 of 1.99 L (48% of predicted) and a DLCO 25.6 mL/min/mmHg (49% of predicted). On account of the patient's high risk status for pneumothorax and poor lung function, a biopsy was not performed. SABR was delivered between the dates of August 17, 2021 through August 22, 2021. A prescribed dose of 54 Gy was delivered in three fractions encompassing [address] scan ordered on February 24, 2022 described a reduction in the size of the right lower-lobe nodule (measured 0.9 cm x 1.1 cm). She was evaluated at the [facility] Emergency Department on May 14, 2022 for generalized malaise and right rib pain. A chest radiograph did not identify any abnormalities. A thoracic CT scan (independently reviewed in [facility]) described an increase in size in the right lower-lobe pulmonary nodule measuring 2 cm x 1.6 cm x 1.4 cm and bilateral pleural effusions. No lymphadenopathy was reported. On review of systems, she described dyspnea. On physical examination, the temperature was 99.5 ???F and her blood pressure was 100/52 mmHg. The pulse was 88 bpm and her respiratory rate was 20 breaths per minute. Oxygen saturation while breathing 3L via NC was 89 %. In summary, Ms. Walls returned to review recent findings present on imaging. I will request a PET scan to help assess the CT findings. I also spoke to the ED physician and she will be evaluated upon departure from this appointment for worsening dyspnea and hypotension. Signed by: Dr. Glynn Vines 05/19/2022 11:06:27 AM
== END 2022-05-23 23:59 | disposition home or self-care (01) ==
LOC: ONCMED 10:12
PROVIDERS: PCP Nurse Practitioner Family; Visit Provider Radiology Radiation Oncology
DX: C34.90 Malignant neoplasm of unspecified part of unspecified bronchus or lung (principal); Z92.3 Personal history of irradiation; J90 Pleural effusion, not elsewhere classified; R06.00 Dyspnea, unspecified; I95.9 Hypotension, unspecified
CPT/HCPCS: 99215

== ENCOUNTER 2022-05-19 11:06 | Inpatient (IN) | payer MEDICARE, SELFPAY ==
[2022-05-19] VITALS (37 sets, daily range): BP systolic 72–148; BP diastolic 40–98; PULSE 64–92; RESP 16–41; TEMP 36.8; O2SAT 88–98
--- NOTE | 2022-05-19 12:42 | ED_ITS ---
HPI - SOB/Dyspnea General: Chief Complaint: Shortness of Breath/Dyspnea Stated Complaint: Low O2 Time Seen by Provider: 05/19/22 12:31 History of Present Illness: HPI Narrative: 82-year-old female in with concerns of shortness of breath. Her family accompanies her and gives most of the history. The patient has a fairly complicated past medical history that includes severe aortic stenosis that is being evaluated for a transcatheter aortic valve repair by Dr. Antunez and the cardiology team at [facility] in [place]. The patient has gotten significantly worse over the past 1 week. She was just seen here over the weekend and evaluated and treated and released. The patient has had progression of her symptoms she just saw Dr. Vines who is concerned over an enlarging mass in her chest. Associated symptoms: Reports chest pain; Deny abdominal pain, nausea or vomiting Review of Systems Const: Reports: change in appetite, change in weight, fatigue and malaise Card: Reports: chest pain; Denies: irregular heart rhythm Resp: Reports: dyspnea; Denies: productive cough, non-productive cough, wheezing or pain on inspiration GI: Denies: abdominal pain, nausea or vomiting Musc: Denies: neck pain or back pain PFS ED PFSH: Medical History Aortic stenosis Asthma-COPD overlap syndrome Chronic anticoagulation COPD (chronic obstructive pulmonary disease) Exertional dyspnea Fracture of distal end of left radius and ulna HTN (hypertension) Hx of cardiac murmur PVD (peripheral vascular disease) Surgical History History of hernia repair History of hysterectomy Family History Mother CAD (coronary artery disease) Stroke Father CAD (coronary artery disease) Lung disease Brother Diabetes Social History Smoking and tobacco status: former smoker Quit status (tobacco): has quit using tobacco Year quit tobacco: quit 1985 Former quit date comment: 1 ppd x 30 years Alcohol intake: never History of recent travel: Yes Current gender identity: Female Physical Exam Narrative: EXAM NARRATIVE: Elderly female in mild distress HENMT: OTHER: No scleral icterus or conjunctival injection Neck/C-Spine: OTHER: No adenopathy or thyromegaly Resp: OTHER: Diminished at the bases bilaterally poor expiratory effort Cardio: COMMON NORMALS: regular rate and regular rhythm RATE: regular rate RHYTHM: regular rhythm OTHER: Harsh systolic murmur distant heart sounds Skin: COMMON NORMALS: no rashes or lesions noted; negative for turgor normal GENERAL SKIN EXAM: no rashes or lesions noted, abnormal elasticity and decreased turgor Course Vital Signs: Vital signs: Vital Signs Temperature 98.2 F 05/19/22 11:11 Pulse Rate 64 05/19/22 15:30 Respiratory Rate 20 H 05/19/22 15:30 Blood Pressure 115/47 05/19/22 14:42 Pulse Oximetry 95 05/19/22 15:30 Oxygen Delivery Me thod 05/19/22 14:42 Oxygen Flow Rate 3 05/19/22 14:42 MDM - SOB/Dyspnea Medical Decision Making The patient has acute hypoxic respiratory failure and symptomatic hyponatremia. I talked to the hospitalist who was agreeable to admit him in the hospital. This patient has a poor prognosis I do not think at this point or perhaps likely in the future she is good candidate for valve replacement. Lab Data 05/19/22 13:06 05/19/22 13:06 Labs/Radiology: Radiology Impressions Chest X-Ray 05/19/22 12:42 IMPRESSION: 1. Small bilateral pleural effusions with minimal increased in size since 05/14/2022. 2. Mild interstitial edema. Laboratory Results WBC 10.4 10^3/uL (4.0-10.0) H 05/19/22 13:06 RBC 3.49 10^6/uL (4.1-5.3) L 05/19/22 13:06 Hgb 10.6 g/dL (11.5-15.3) L 05/19/22 13:06 Hct 32.2 % (37.0-47.0) L 05/19/22 13:06 MCV 92.3 fl (81-99) 05/19/22 13:06 MCH 30.4 pg (28.0-34.0) 05/19/22 13:06 MCHC 32.9 g/dL (30.0-36.0) 05/19/22 13:06 RDW 12.3 % (12.1-15.1) 05/19/22 13:06 Plt Count 345 10^3/cmm (130-400) 05/19/22 13:06 MPV 8.3 fL (7.4-10.4) 05/19/22 13:06 Neut % (Auto) 76.6 % 05/19/22 13:06 Lymph % (Auto) 7.9 % 05/19/22 13:06 [place] % (Auto) 13.8 % 05/19/22 13:06 Eos % (Auto) 0.8 % 05/19/22 13:06 Baso % (Auto) 0.3 % 05/19/22 13:06 Neut # (Auto) 7.98 10^3/uL (1.8-7.7) H 05/19/22 13:06 Lymph # (Auto) 0.8 10^3/uL (0.8-4.8) 05/19/22 13:06 [place] # (Auto) 1.4 10^3/uL (0.2-0.9) H 05/19/22 13:06 Eos # (Auto) 0.1 10^3/uL (0.0-0.8) 05/19/22 13:06 Baso # (Auto) 0.0 10^3/uL (0.0-0.1) 05/19/22 13:06 Nucleated RBC % (auto) 0 % 05/19/22 13:06 Nucleated RBCs # 0.0 /100WBC 05/19/22 13:06 Sodium 121 mmol/L (136-145) L 05/19/22 13:06 Potassium 4.8 mmol/L (3.5-5.1) 05/19/22 13:06 Chloride 84 mmol/L (98-107) L 05/19/22 13:06 Carbon Dioxide 25 mmol/L (22-29) 05/19/22 13:06 Anion Gap 16.8 (5-19) 05/19/22 13:06 BUN 17 mg/dL (8-23) 05/19/22 13:06 Creatinine 1.0 mg/dL (0.5-0.9) H 05/19/22 13:06 GFR Calculation Not Reportable 05/19/22 13:06 Glucose 98 mg/dL (65-115) 05/19/22 13:06 Calculated Osmolality 254 mOsm/kg (285-295) L 05/19/22 13:06 Calcium 9.8 mg/dL (8.5-10.5) 05/19/22 13:06 Total Bilirubin 0.5 mg/dL (0.15-1.2) 05/19/22 13:06 AST 25 U/L (0-32) 05/19/22 13:06 ALT 22 U/L (0-33) 05/19/22 13:06 Alkaline Phosphatase 90 U/L (35-105) 05/19/22 13:06 NT-Pro-B Natriuret Pep 4286 pg/mL (0-450) H 05/19/22 13:06 Total Protein 7.1 g/dL (6.6-8.7) 05/19/22 13:06 Albumin 3.5 g/dL (3.5-5.2) 05/19/22 13:06 Globulin 3.6 g/dL (1.3-4.6) 05/19/22 13:06 MDM Narrative Medical decision making narrative: Discussed differential diagnosis with patient and family. This is likely related to her pleural effusions valvular heart disease however she also has this enlarging mass and a history of cancer. The patient is somewhat hypotensive I do not think that she is infected she has not been eating and drinking very well. We will check routine labs give her 250 cc fluid bolus and do serial reexaminations patient and her family are adamant that she be transferred emergently to [facility] for consideration of valve repair but at this point especially with her enlarging mass in her chest and question of infection versus neoplasm she would not be a very good candidate. Patient has acute hypoxic respiratory failure found to have sodium of 121. I t hink given that she is symptomatic we should admit her into the hospital for treatment and evaluation. At this point patient still wants aggressive treatment. Her daughter who is medical power of meter reading clerk apparently has some additional paperwork in regards to [employer] Differential Diagnosis Differential diagnosis: Likely acute myocardial infarction, anemia, hypoglycemia, hypothyroidism, sepsis and dehydration Lab Data 05/19/22 13:06 05/19/22 13:06 Labs: Lab Results 05/19/22 05/19/22 13:06 13:06 WBC 10.4 10^3/uL H 10^3/uL (4.0-10.0) RBC 3.49 10^6/uL L 10^6/uL (4.1-5.3) Hgb 10.6 g/dL L g/dL (11.5-15.3) Hct 32.2 % L % (37.0-47.0) MCV 92.3 fl fl (81-99) MCH 30.4 pg pg (28.0-34.0) MCHC 32.9 g/dL g/dL (30.0-36.0) RDW 12.3 % % (12.1-15.1) Plt Count 345 10^3/cmm 10^3/cmm (130-400) MPV 8.3 fL fL (7.4-10.4) Neut % (Auto) 76.6 % % Lymph % (Auto) 7.9 % % [place] % (Auto) 13.8 % % Eos % (Auto) 0.8 % % Baso % (Auto) 0.3 % % Neut # (Auto) 7.98 10^3/uL H 10^3/uL (1.8-7.7) Lymph # (Auto) 0.8 10^3/uL 10^3/uL (0.8-4.8) [place] # (Auto) 1.4 10^3/uL H 10^3/uL (0.2-0.9) Eos # (Auto) 0.1 10^3/uL 10^3/uL (0.0-0.8) Baso # (Auto) 0.0 10^3/uL 10^3/uL (0.0-0.1) Nucleated RBC % (auto) 0 % % Nucleated RBCs # 0.0 /100WBC /100WBC Sodium 121 mmol/L L mmol/L (136-145) Potassium 4.8 mmol/L mmol/L (3.5-5.1) Chloride 84 mmol/L L mmol/L (98-107) Carbon Dioxide 25 mmol/L mmol/L (22-29) Anion Gap 16.8 (5-19) BUN 17 mg/dL mg/dL (8-23) Creatinine 1.0 mg/dL H mg/dL (0.5-0.9) GFR Calculation Not Reportable Glucose 98 mg/dL mg/dL (65-115) Calculated Osmolality 254 mOsm/kg L mOsm/kg (285-295) Calcium 9.8 mg/dL mg/dL (8.5-10.5) Total Bilirubin 0.5 mg/dL mg/dL (0.15-1.2) AST 25 U/L U/L (0-32) ALT 22 U/L U/L (0-33) Alkaline Phosphatase 90 U/L U/L (35-105) NT-Pro-B Natriuret Pep 4286 pg/mL H pg/mL (0-450) Total Protein 7.1 g/dL g/dL (6.6-8.7) Albumin 3.5 g/dL g/dL (3.5-5.2) Globulin 3.6 g/dL g/dL (1.3-4.6) Discharge Plan Discharge Patient Disposition: Admitted As Inpatient Clinical Impression: Lung cancer, Mass of right lung, COPD (chronic obstructive pulmonary disease), Acute respiratory failure with hypoxia, Hyponatremia Condition: Stable Prescriptions: No Action (DME) Fast Form Cock Up Splint See Rx Instructions .ROUTE .MEDSUPPLY Qty: 1 0RF Rx Instructions: As directed cyanocobalamin (vitamin B-12) 5,000 mcg capsule 5,000 mcg PO DAILY PRN (Reason: unknown) cholecalciferol (vitamin D3) 10 mcg (400 unit) capsule 10 mcg PO BEDTIME ezetimibe 10 mg tablet 10 mg PO BEDTIME [id number] mg tablet 1 tab PO BEDTIME guaifenesin [Mucinex] 600 mg tablet extended release 12hr 600 mg PO Q12H PRN (Reason: congestion) Qty: 20 3RF magnesium oxide 400 mg magnesium tablet 400 mg PO DAILY albuterol sulfate 1.25 mg/3 mL solution for nebulization 1.25 mg inhalation QID PRN (Reason: shortness of breath or wheezing) Qty: 90 0RF hydrocodone-acetaminophen 5-325 mg tablet 1 tab PO Q6H PRN (Reason: pain) Qty: 12 0RF levofloxacin 750 mg tablet 750 mg PO DAILY 7 Days Qty: 7 0RF lisinopril 20 mg tablet 20 mg PO BID diltiazem HCl 120 mg tablet 120 mg PO QAM fluticasone propion-salmeterol 500-50 mcg/dose blister with device 1 inh inhalation Q12H ProAir HFA 90 mcg/actuation HFA aerosol inhaler 2 puff inhalation Q6H PRN (Reason: Shortness Of Breath) Spiriva Respimat 2.5 mcg/actuation mist 2 puff inhalation QAM Eliquis 5 mg tablet 5 mg PO BID Referrals: Shalonda Skelton FNP [Primary Care Provider] - Coding Level of Care Code ED Air Analyst for Chg Fwd Exam Expanded Problem Focused
--- NOTE | 2022-05-19 12:42 | XR_ITS ---
WS: [id number] PORTABLE CHEST HISTORY: sob COMPARISON: 05/14/2022 Mild pulmonary edema. Mild thickening along the RIGHT fissures from pleural fluid. Small bilateral pl eural effusions. Effusions have minimally increased since the prior study. Cardiac size: Normal. Mediastinum/Aorta: Atherosclerosis aorta. No osseous abnormality seen. XR/XR chest 1V portable [id number] IMPRESSION: 1. Small bilateral pleural effusions with minimal increased in size since 05/14. 2. Mild interstitial edema.
--- NOTE | 2022-05-19 13:17 | ECG_ITS ---
[facility] Test Date: 2022-05-19 Pat Name: Angella Walls Department: Room: Gender: Female Financial Risk Manager: : 1940 Requested By: Jamie Morelos Order Number: [id number] Pipe MD: Amber Hopkins M.D. Measurements Intervals Seney Rate: 66 P: 0 VA: 0 QRS: 15 QRSD: 82 T: 65 QT: 378 QTc: 399 Interpretive Statements ATRIAL FIBRILLATION ABNORMAL RHYTHM ECG No previous ECG available for comparison Electronically Signed On 05-19-2022 21:59:12 NEWSPAPER LIBRARY MANAGER by Amber Hopkins M.D. [id number]
[2022-05-19 13:21] LABS: Basophils % 0.3 %; Eosinophils # 0.1 10^3/uL (0.0-0.8); Eosinophils % 0.8 %; Hematocrit 32.2 % (37.0-47.0); Hemoglobin 10.6 g/dL (11.5-15.3); Lymphocytes # 0.8 10^3/uL (0.8-4.8); Lymphocytes % 7.9 %; Mean Corpuscular HGB Conc 32.9 g/dL (30.0-36.0); Mean Corpuscular Hemoglobin 30.4 pg (28.0-34.0); Mean Corpuscular Volume 92.3 fl (81-99); Mean Platelet Volume 8.3 fL (7.4-10.4); Monocytes # 1.4 10^3/uL (0.2-0.9); Monocytes % 13.8 %; Neutrophils # 7.98 10^3/uL (1.8-7.7); Neutrophils % 76.6 %; Nucleated Red Blood Cells % 0 %; Platelet Count 345 10^3/cmm (130-400); Red Blood Count 3.49 10^6/uL (4.1-5.3); Red Cell Distribution Width 12.3 % (12.1-15.1); White Blood Count 10.4 10^3/uL (4.0-10.0)
[2022-05-19 13:52] LABS: Alanine Aminotransferase 22 U/L (0-33); Albumin Level 3.5 g/dL (3.5-5.2); Alkaline Phosphatase 90 U/L (35-105); Anion Gap 16.8 (5-19); Aspartate Amino Transferase 25 U/L (0-32); Blood Urea Nitrogen 17 mg/dL (8-23); Calcium 9.8 mg/dL (8.5-10.5); Carbon Dioxide 25 mmol/L (22-29); Chloride 84 mmol/L (98-107); Globulin 3.6 g/dL (1.3-4.6); Glucose 98 mg/dL (65-115); NT Pro B Type Natriuretic Pept 4286 pg/mL (0-450); Osmolality Calculated 254 mOsm/kg (285-295); Potassium 4.8 mmol/L (3.5-5.1); Sodium 121 mmol/L (136-145); Total Bilirubin 0.5 mg/dL (0.15-1.2); Total Protein 7.1 g/dL (6.6-8.7)
--- NOTE | 2022-05-19 14:14 | PC.NURSE ---
Dr Venegas in room to assess patient's mentation. Pt is still disoriented and drowsy, she is not able to answer questions at this time. Dr. Venegas still wants patient to be monitored and observed until Versed wears off.
--- NOTE | 2022-05-19 14:21 | PC.NURSE ---
Pt's blood pressure continues to be low 70s/40s. Pt has severe aortic stenosis - so wants to slowly give her fluids to see if blood pressure will increase. Pt's family at bedside.
[2022-05-19 17:37] LABS: Lactic Sepsis W/Reflex 1.4 mmol/L (0.5-2.2)
--- NOTE | 2022-05-19 17:47 | USR_ITS ---
PROCEDURE INFORMATION: Exam: US Duplex Lower Extremity Arteries Exam date and time: 05/19/2022 7:38 PM Age: 82 years old Clinical indication: Other: Decreased pedal pulses; Additional info: Diminished pedal pulse right side TECHNIQUE: Imaging protocol: Real-time ultrasound scan of the arteries of the bilateral lower extremities with 2-D atkins scale, color Doppler flow and spectral waveform analysis. Images documented and saved. COMPARISON: No relevant prior studies available. FINDINGS: Right common femoral artery: No occlusion or significant stenosis. Normal waveform. Right superficial femoral artery: No occlusion or significant stenosis. The waveform is normal. Right popliteal artery: No occlusion or significant stenosis. Normal waveform. Right calf/foot arteries: No occlusion or significant stenosis in the visualized arteries. There is biphasic flow in the posterior tibial artery with monophasic flow in the dorsalis pedis artery. Dorsalis pedis artery is patent. Left common femoral artery: No occlusion or significant stenosis. Biphasic flow. Left superficial femoral artery: No occlusion or significant stenosis. Biphasic flow. Left popliteal artery: No occlusion or significant stenosis. Monophasic flow. Left calf/foot arteries: No occlusion or significant stenosis in the visualized arteries. Monophasic flow. Dorsalis pedis artery is patent. US/[place] [id number] IMPRESSION: 1. No high-grade stenosis or occlusion. 2. Monophasic flow in the left lower extremity [id number] suggesting inflow disease.
[2022-05-19] MEDS: apixaban 5 mg Tablet PO (17:52)
[2022-05-19] MEDS: sodium chloride 0.9% 250 ML IV (17:53)
--- NOTE | 2022-05-19 18:13 | PC.NURSE ---
Patient arrived to ICU around approximately 1745. Patient is in room resting, BP on softer side. Patient is alert and orientated. Awaiting Dr. Garcia for further admission orders
--- NOTE | 2022-05-19 18:33 | P.HP_ITS ---
Providers/Chief Complaint Admitting Physician: Emili Garcia MD Primary Care Provider: REENA Meneses Chief Complaint: Low O2 History of Present Illness Angella Walls is a 82 year old female with PMH COPD, hypertension, mild aortic stenosis, atrial fibrillation, peripheral vascular disease, former smoker quit 1985-1 pack/day for 30 years referred by Carina VALLES for chronic productive cough with yellow sputum for multiple years.? Diagnosed with COVID Apr 2020 presented from radiology clinic because of hypotension and generalized weakness. In the ER she was diagnosed with severe hyponatremia, as per the family she always runs low on sodium, she is living alone, very independent, & functional. Patient is stating that for last 1 week. She has not experienced any fever, nausea, vomiting, diarrhea. She was given Levaquin for possible pneumonia only 2 doses have left so far. Started on normal saline, patient has an appointment with clinical psychologist licensed on Sunday for TAVR evaluation. She is hemodynamically stable Recently she was put on 2 L of oxygen Review of Systems Const: Reports: chills and body aches Eyes: Denies: change in vision ENMT: Denies: throat pain Card: Denies: chest pain Resp: Reports: dyspnea GI: Denies: abdominal pain : Denies: flank pain Musc: Denies: neck pain Skin/Breast: Denies: rash Neuro: Denies: headache(s) Psych: Reports: anxiety Endo: Denies: polyuria Willi/Lymph: Denies: easy bruising All/Imm: Denies: urticaria Medications/Allergies Home Medications Medication Instructions Recorded Confirmed Last Taken Type cyanocobalamin (vitamin B-12) 5,000 mcg PO DAILY PRN unknown 10/26/20 05/19/22 Unknown History 5,000 mcg capsule Fast Form Cock Up Splint #1 ea 11/08/20 05/19/22 Unknown Rx cholecalciferol (vitamin D3) 10 10 mcg PO BEDTIME 03/10/21 05/19/22 05/18/22 History mcg (400 unit) capsule [id number]-fynonmhuo-kzie 333 mg-133 1 tab PO BEDTIME 07/06/21 05/19/22 05/18/22 History mg-8.3 mg tablet ezetimibe 10 mg tablet 10 mg PO BEDTIME 07/06/21 05/19/22 05/18/22 History guaifenesin 600 mg tablet, 600 mg PO Q12H PRN congestion #20 07/06/21 05/19/22 Unknown Rx extended release 12 hr (Mucinex) tabs magnesium oxide 400 mg PO DAILY 12/21/21 05/19/22 Unknown History albuterol sulfate 1.25 mg/3 mL 1.25 mg (3 mL) inhalation QID PRN 02/01/22 05/19/22 Unknown Rx solution for nebulization shortness of breath or wheezing #90 mL hydrocodone 5 mg-acetaminophen 325 1 tab PO Q6H PRN pain #12 tabs 05/14/22 05/19/22 05/18/22 Rx mg tablet 1/2 tab levofloxacin 750 mg tablet 750 mg PO DAILY 7 days #7 tabs 05/14/22 05/19/22 05/18/22 Rx albuterol sulfate 90 mcg/actuation 2 puff inhalation Q6H PRN 05/19/22 05/19/22 Unknown History aerosol inhaler (ProAir HFA) Shortness Of Breath apixaban 5 mg tablet (Eliquis) 5 mg PO BID 05/19/22 05/19/22 05/19/22 History diltiazem HCl 120 mg tablet 120 mg PO QAM 05/19/22 05/19/22 05/19/22 History diltiazem HCl 120 mg tablet 120 mg PO DAILY 05/19/22 05/19/22 05/18/22 History (Cardizem) fluticasone 500 mcg-salmeterol 50 1 inh inhalation Q12H 05/19/22 05/19/22 Unknown History mcg/dose blistr powdr for inhalation lisinopril 20 mg tablet 20 mg PO BID 05/19/22 05/19/22 05/17/22 History not taken since 05/17 tiotropium bromide 2.5 2 puff inhalation QAM 05/19/22 05/19/22 Unknown History mcg/actuation mist for inhalation (Spiriva Respimat) Allergies Allergy/AdvReac Type Severity Reaction Status Date / Time Macrolide Antibiotics Allergy Severe Unconscious Verified 05/19/22 14:28 Penicillins Allergy Severe Unknown Verified 05/19/22 14:28 codeine Allergy Unknown Verified 05/19/22 14:28 Sulfa (Sulfonamide Allergy Unknown Verified 05/19/22 14:28 Antibiotics) metamucil orange Allergy Unknown Uncoded 05/19/22 14:28 unknown names of antibiotics Allergy Unknown Uncoded 05/19/22 14:29 PFSH Acute PFSH: Medical History Aortic stenosis Asthma-COPD overlap syndrome Chronic anticoagulation COPD (chronic obstructive pulmonary disease) Exertional dyspnea Fracture of distal end of left radius and ulna HTN (hypertension) Hx of cardiac murmur PVD (peripheral vascular disease) Surgical History History of hernia repair History of hysterectomy Family History Mother CAD (coronary artery disease) Stroke Father CAD (coronary artery disease) Lung disease Brother Diabetes Social History Smoking and tobacco status: former smoker Quit status (tobacco): has quit using tobacco Year quit tobacco: quit 1985 Former quit date comment: 1 ppd x 30 years Alcohol intake: never History of recent travel: Yes Current gender identity: Female Vitals/I&O/Wt Last Vital Signs Temp 98.2 F 05/19/22 11:11 Pulse 79 05/19/22 17:49 Resp 16 05/19/22 17:49 BP 132/57 05/19/22 16:29 Pulse Ox 93 05/19/22 17:49 O2 Del Method 05/19/22 17:49 O2 Flow Rate 3 05/19/22 17:49 Weight last 48 hrs Weight 53.07 kg Physical Exam Narrative: Patient is fatigued and lethargic Currently on 2 L of oxygen Awake and alert Nonfocal neuro exam Abdomen soft No sign of extremity edema No signs of vascular emergencies Bilateral feet are warm no active cyanosis No active swelling Family is at the bedside S1, S2 variable, systolic murmur No audible stridor or wheezing Data 05/19/22 13:06 05/19/22 13:06 A&P Assessment and plan (1) Mass of right lung: (2) Pleural effusion on right: (3) Hyponatremia: (4) Lung cancer, lower lobe: (5) Atrial fibrillation: Qualifiers: Atrial fibrillation type: unspecified chronic Qualified Code(s): I48.20 - Chronic atrial fibrillation, unspecified (6) PVD (peripheral vascular disease): (7) COPD (chronic obstructive pulmonary disease): Plan Acute on chronic hyponatremia Patient is stating her sodium always runs low No diagnosis of lung cancer She has finished radiotherapy A. fib related to underlying lung cancer however her p.o. intake has been very poor No diarrhea or vomiting Start normal saline This is hypovolemic hyponatremia Goal sodium correction 6 to 9 mEq in 24 hours Monitor neurological status Requested physical therapy Patient lives alone she is independent Chronic hypoxia uses 2 L, TAVR going for evaluation on Sunday Attestations Medical Necessity Statement*: Anticipating more than 2 midnights will monitor in ICU Time Spent in Patient Care: 40 Coding Level of Care Code Acute Code for Chg Fwd Diagnoses Mass of right lung R91.8 Pleural effusion on right J90 Hyponatremia E87.1 Lung cancer, lower lobe C34.30 Atrial fibrillation I48.20 Atrial fibrillation type: unspecified chronic PVD (peripheral vascular disease) I73.9 COPD (chronic obstructive pulmonary disease) J44.9
[2022-05-19] MEDS: sodium chloride 0.9% 1,000 ML 75 ML IV (19:14)
[2022-05-19 19:27] LABS: Thyroid Stimulating Hormone 3.95 uIU/mL (0.27-4.20); Vitamin B12 1040 pg/mL (232-1245)
--- NOTE | 2022-05-19 19:53 | PC.NURSE ---
Pt expressed concern about how they will get their home medication 120 mg Cardizem once in the morning, concern expressed to Dr. Garcia, New order for 120mg Cardizem to start in the morning.
--- NOTE | 2022-05-19 19:59 | PC.NURSE ---
Pharmacy in unit to express concern about Lovenox order, unable to reach Dr. Garcia by phone, lovenox not given.
[2022-05-19 21:36] LABS: Cortisol Random 23.73 ug/dL (2.47-19.5)
[2022-05-19] MEDS: ipratropium 0.5 mg/2.5 mL Neb INHALATION (23:03)
[2022-05-19] MEDS: budesonide 0.5 mg/2 mL Neb INHALATION (23:04)
[2022-05-19] MEDS: albuterol 2.5 mg/3 mL Neb INHALATION (23:04)
[2022-05-19 23:31] LABS: Sodium 123 mmol/L (136-145)
[2022-05-20] VITALS (62 sets, daily range): BP systolic 94–160; BP diastolic 44–94; PULSE 61–96; RESP 13–27; TEMP 36.6–37.2; O2SAT 90–100
[2022-05-20] MEDS: benzonatate 100 mg Capsule 200 MG PO (02:30)
[2022-05-20] MEDS: acetaminophen 500 mg Tablet PO (02:33)
--- NOTE | 2022-05-20 03:00 | PC.NURSE ---
Pt's family member stated that she had to get her mom up by herself because this nurse was too busy taking lunch . Family member (daughter) re-educated to not get pt up w/ out a nurse. Purpose of call light and bed alarm explained. This RN requested that the family leave pts door open so bed alarm can be heard. Daughter seems resistant to learning but verbalized understanding, reinforcement needed.
[2022-05-20 05:18] LABS: Basophils % 0.3 %; Eosinophils # 0.1 10^3/uL (0.0-0.8); Eosinophils % 2.3 %; Hematocrit 25.8 % (37.0-47.0); Hemoglobin 8.6 g/dL (11.5-15.3); Lymphocytes # 0.7 10^3/uL (0.8-4.8); Lymphocytes % 10.8 %; Mean Corpuscular HGB Conc 33.3 g/dL (30.0-36.0); Mean Corpuscular Hemoglobin 30.9 pg (28.0-34.0); Mean Corpuscular Volume 92.8 fl (81-99); Mean Platelet Volume 8.3 fL (7.4-10.4); Neutrophils # 4.18 10^3/uL (1.8-7.7); Neutrophils % 68.6 %; Nucleated Red Blood Cells % 0 %; Platelet Count 277 10^3/cmm (130-400); Red Blood Count 2.78 10^6/uL (4.1-5.3); Red Cell Distribution Width 12.4 % (12.1-15.1); White Blood Count 6.1 10^3/uL (4.0-10.0)
[2022-05-20 05:43] LABS: Anion Gap 15.2 (5-19); Blood Urea Nitrogen 16 mg/dL (8-23); C Reactive Protein 168.4 mg/L (0.0-4.9); Calcium 8.5 mg/dL (8.5-10.5); Carbon Dioxide 23 mmol/L (22-29); Chloride 91 mmol/L (98-107); Glucose 99 mg/dL (65-115); Magnesium 1.8 mg/dL (1.7-2.3); Osmolality Calculated 261 mOsm/kg (285-295); Phosphorus 3.4 mg/dL (2.5-4.5); Potassium 4.2 mmol/L (3.5-5.1); Sodium 125 mmol/L (136-145)
[2022-05-20] MEDS: ipratropium 0.5 mg/2.5 mL Neb INHALATION ×3 (07:59→20:09)
[2022-05-20] MEDS: budesonide 0.5 mg/2 mL Neb INHALATION ×2 (07:59→20:09)
[2022-05-20] MEDS: albuterol 2.5 mg/3 mL Neb INHALATION ×3 (08:00→20:09)
[2022-05-20] MEDS: sodium chloride 0.9% 1,000 ML 75 ML IV ×2 (08:47→21:40)
[2022-05-20] MEDS: levoFLOXacin 750 mg Tablet PO (08:48)
[2022-05-20] MEDS: dilTIAZem 60 mg Tablet 120 MG PO (08:48)
[2022-05-20] MEDS: apixaban 5 mg Tablet PO (08:48)
--- NOTE | 2022-05-20 11:40 | PM.PN ---
Subjective Subjective: Sodium is improving Patient is endorsing feeling slightly better Will request home oxygen evaluation and PT I do believe her drop in H&H is because of lab error, recheck H&H, hold Eliquis for now Transfer to [facility] Vitals/I&O/Wt Last Vital Signs Temp 98.2 F 05/20/22 10:15 Pulse 81 05/20/22 10:15 Resp 20 H 05/20/22 10:15 BP 145/52 05/20/22 10:15 Pulse Ox 96 05/20/22 10:15 O2 Del Method 05/20/22 10:15 O2 Flow Rate 2 05/20/22 10:15 05/19/22 05/20/22 05/20/22 22:59 06:59 14:59 Intake Total 250 / 250 500 / 750 1240 / 1240 Output Total 350 / 350 650 / 1000 Balance -100 / -100 -150 / -250 1240 / 1240 Weight last 48 hrs Weight 53.07 kg Physical Exam Narrative: Patient is awake and alert Signs of dehydration improving She was eating breakfast Happy with the progress Currently on 2 L of oxygen Hemodynamically stable Bilateral feet warm nontender to touch No signs of vascular compromise Family is at the bedside Abdomen soft S1, S2 systolic murmur Data 05/20/22 04:55 05/20/22 04:55 A&P Assessment and plan (1) Hypoxia: (2) Rib pain on right side: (3) Mass of right lung: (4) Hyponatremia: (5) Pharyngitis: (6) Atrial fibrillation: Qualifiers: Atrial fibrillation type: unspecified chronic Qualified Code(s): I48.20 - Chronic atrial fibrillation, unspecified (7) Lung cancer: (8) PVD (peripheral vascular disease): (9) COPD (chronic obstructive pulmonary disease): Plan Acute on chronic hyponatremia: Sodium slightly improving Continue IV fluid hydration for now Requested PT evaluation Patient lives alone She has stairs to go down to her laundry in the basement Hypoxia without respiratory distress, request home O2 evaluation She is getting levofloxacin for her pharyngitis A. fib without RVR continue AV shaniqua blocking agent holding Eliquis and drop in H&H noted check FOBT, recheck H&H Plan to discharge her tomorrow TAVR evaluation on Sunday Full code Cardiac diet Transfer to [facility] Attestations Medical Necessity Statement*: Transfer to [facility] discharge tomorrow Time Spent in Patient Care: 30 Coding Level of Care Code Acute Code for Chg Fwd Diagnoses Hypoxia R09.02 Rib pain on right side R07.81 Mass of right lung R91.8 Hyponatremia E87.1 Pharyngitis J02.9 Atrial fibrillation I48.20 Atrial fibrillation type: unspecified chronic Lung cancer C34.90 PVD (peripheral vascular disease) I73.9 COPD (chronic obstructive pulmonary disease) J44.9
[2022-05-20 13:23] LABS: Hematocrit 29.7 % (37.0-47.0); Hemoglobin 9.6 g/dL (11.5-15.3)
--- NOTE | 2022-05-20 14:30 | PC.NURSE ---
Report called to Sheree, second floor.
--- NOTE | 2022-05-20 14:50 | PC.NURSE ---
Patient transferred to second floor room 172 via wheelchair. Uneventful transfer. Patient resting in bed with family at bedside along with patient belongings. Chart left with staff at front facer.
--- NOTE | 2022-05-20 15:21 | PC.NURSE ---
1455 patient recieved to room 272-1 from ICU patient accompained by family, patient in stable condition
[2022-05-21] VITALS (8 sets, daily range): BP systolic 129–156; BP diastolic 45–67; PULSE 56–86; RESP 15–18; TEMP 36.7–37.4; O2SAT 86–96
[2022-05-21 05:41] LABS: Basophils % 0.8 %; Eosinophils # 0.2 10^3/uL (0.0-0.8); Eosinophils % 3.6 %; Hematocrit 26.9 % (37.0-47.0); Hemoglobin 8.7 g/dL (11.5-15.3); Lymphocytes # 0.8 10^3/uL (0.8-4.8); Lymphocytes % 16.1 %; Mean Corpuscular HGB Conc 32.3 g/dL (30.0-36.0); Mean Corpuscular Hemoglobin 30.1 pg (28.0-34.0); Mean Corpuscular Volume 93.1 fl (81-99); Mean Platelet Volume 8.3 fL (7.4-10.4); Monocytes # 0.9 10^3/uL (0.2-0.9); Monocytes % 17.1 %; Neutrophils # 3.09 10^3/uL (1.8-7.7); Neutrophils % 61.6 %; Nucleated Red Blood Cells % 0 %; Platelet Count 313 10^3/cmm (130-400); Red Blood Count 2.89 10^6/uL (4.1-5.3); Red Cell Distribution Width 12.6 % (12.1-15.1)
[2022-05-21 06:09] LABS: Anion Gap 13.3 (5-19); Blood Urea Nitrogen 14 mg/dL (8-23); Calcium 8.5 mg/dL (8.5-10.5); Carbon Dioxide 24 mmol/L (22-29); Chloride 98 mmol/L (98-107); Glucose 96 mg/dL (65-115); Osmolality Calculated 272 mOsm/kg (285-295); Potassium 4.3 mmol/L (3.5-5.1); Sodium 131 mmol/L (136-145)
[2022-05-21] MEDS: budesonide 0.5 mg/2 mL Neb INHALATION (08:08)
[2022-05-21] MEDS: albuterol 2.5 mg/3 mL Neb INHALATION (08:08)
[2022-05-21] MEDS: ipratropium 0.5 mg/2.5 mL Neb INHALATION (08:08)
[2022-05-21] MEDS: sennosides-docusate Tablet 1 TAB PO (08:32)
[2022-05-21] MEDS: dilTIAZem 60 mg Tablet 120 MG PO (08:32)
[2022-05-21] MEDS: lisinopril 20 mg Tablet PO (08:45)
--- NOTE | 2022-05-21 10:34 | P.DS_ITS ---
Discharge Providers Date of Admission: 05/19/22 16:52 Date of Discharge: May 21, 2022 Attending Provider at Admission: Emili Garcia MD Attending Provider at Discharge: Emili Garcia MD Primary Care Provider: REENA Meneses Diagnoses at Discharge Discharge Diagnosis (1) Hypoxia: Status: Acute (2) Rib pain on right side: Status: Acute (3) Mass of right lung: Status: Acute (4) Hyponatremia: Status: Acute (5) Pharyngitis: Status: Acute (6) Atrial fibrillation: Status: Acute Qualifiers: Atrial fibrillation type: unspecified chronic Qualified Code(s): I48.20 - Chronic atrial fibrillation, unspecified (7) Lung cancer: Status: Acute (8) PVD (peripheral vascular disease): Status: Acute (9) COPD (chronic obstructive pulmonary disease): Status: Acute Reason for Visit Reason for Visit: Low O2 Hospital Course Hospital Course 82-year-old female with history of lung cancer, not a candidate for lung biopsy finished radiotherapy, was sent from radiology clinic because of low blood pressure and in the ER she was diagnosed with hyponatremia. She was hypovolemic hyponatremic. Her sodium gradually improved with normal saline maintenance rate. She is still fatigued but endorsing feeling slightly better, she lives alone, she has TAVR evaluation on Sunday, I have recommended her to stay with her daughter until she is well and evaluated by executive staff assistant. Her daughter is taking her home. I have requested case management to see if she would qualify for home health services. PT evaluation requested as well before discharge. Patient is full code. She is also suffering from poor appetite. I would avoid adding more medications at this point. Her hemoglobin has remained stable. Her blood was drawn while normal saline was running through the IV. She has remained hemodynamically stable. Patient has been using 2 L of oxygen for last 2-3 weeks, will request home O2 evaluation before discharge Physical Exam Narrative: Awake and alert Eating breakfast Requiring 2 to 3 L of oxygen Abdomen soft Nonfocal neuro exam EOMI, PERRLA Pleasant cooperative Discharge Data Studies Completed and Pending Completed Studies During Hospitalization Category Date Time Status XR chest 1V portable [id number] Stat Exams 05/19/22 12:42 [place] [id number] Routine Ultrasound 05/19/22 17:47 Completed Pending at discharge Category Date Time Status Occult Blood Stool [Immunochemical Fecal OCB] Routine Lab 05/20/22 11:37 Uncollected Osmolality Serum Routine Lab 05/19/22 13:06 Received Osmolality Urine Routine Lab 05/19/22 23:00 Received Radiology Impressions Chest X-Ray 05/19/22 12:42 IMPRESSION: 1. Small bilateral pleural effusions with minimal increased in size since 05/14/2022. 2. Mild interstitial edema. Duplex Scan Lower Extremity Artery 05/19/22 17:47 IMPRESSION: 1. No high-grade stenosis or occlusion. 2. Monophasic flow in the left lower extremity [id number] suggesting inflow disease. Laboratory Results WBC 5.0 10^3/uL (4.0-10.0) 05/21/22 04:58 RBC 2.89 10^6/uL (4.1-5.3) L 05/21/22 04:58 Hgb 8.7 g/dL (11.5-15.3) L 05/21/22 04:58 Hct 26.9 % (37.0-47.0) L 05/21/22 04:58 MCV 93.1 fl (81-99) 05/21/22 04:58 MCH 30.1 pg (28.0-34.0) 05/21/22 04:58 MCHC 32.3 g/dL (30.0-36.0) 05/21/22 04:58 RDW 12.6 % (12.1-15.1) 05/21/22 04:58 Plt Count 313 10^3/cmm (130-400) 05/21/22 04:58 MPV 8.3 fL (7.4-10.4) 05/21/22 04:58 Neut % (Auto) 61.6 % 05/21/22 04:58 Lymph % (Auto) 16.1 % 05/21/22 04:58 [place] % (Auto) 17.1 % 05/21/22 04:58 Eos % (Auto) 3.6 % 05/21/22 04:58 Baso % (Auto) 0.8 % 05/21/22 04:58 Neut # (Auto) 3.09 10^3/uL (1.8-7.7) 05/21/22 04:58 Lymph # (Auto) 0.8 10^3/uL (0.8-4.8) 05/21/22 04:58 [place] # (Auto) 0.9 10^3/uL (0.2-0.9) 05/21/22 04:58 Eos # (Auto) 0.2 10^3/uL (0.0-0.8) 05/21/22 04:58 Baso # (Auto) 0.0 10^3/uL (0.0-0.1) 05/21/22 04:58 Nucleated RBC % (auto) 0 % 05/21/22 04:58 Nucleated RBCs # 0.0 /100WBC 05/21/22 04:58 Sodium 131 mmol/L (136-145) L 05/21/22 04:58 Potassium 4.3 mmol/L (3.5-5.1) 05/21/22 04:58 Chloride 98 mmol/L (98-107) 05/21/22 04:58 Carbon Dioxide 24 mmol/L (22-29) 05/21/22 04:58 Anion Gap 13.3 (5-19) 05/21/22 04:58 BUN 14 mg/dL (8-23) 05/21/22 04:58 Creatinine 0.8 mg/dL (0.5-0.9) 05/21/22 04:58 GFR Calculation Not Reportable 05/21/22 04:58 Glucose 96 mg/dL (65-115) 05/21/22 04:58 Calculated Osmolality 272 mOsm/kg (285-295) L 05/21/22 04:58 Lactic Acid 1.4 mmol/L (0.5-2.2) 05/19/22 13:06 Uric Acid 5.0 mg/dL (2.4-5.7) 05/19/22 13:06 Calcium 8.5 mg/dL (8.5-10.5) 05/21/22 04:58 Phosphorus 3.4 mg/dL (2.5-4.5) 05/20/22 04:55 Magnesium 1.8 mg/dL (1.7-2.3) 05/20/22 04:55 Total Bilirubin 0.5 mg/dL (0.15-1.2) 05/19/22 13:06 AST 25 U/L (0-32) 05/19/22 13:06 ALT 22 U/L (0-33) 05/19/22 13:06 Alkaline Phosphatase 90 U/L (35-105) 05/19/22 13:06 C-Reactive Protein 168.4 mg/L (0.0-4.9) H 05/20/22 04:55 NT-Pro-B Natriuret Pep 4286 pg/mL (0-450) H 05/19/22 13:06 Total Protein 7.1 g/dL (6.6-8.7) 05/19/22 13:06 Albumin 3.5 g/dL (3.5-5.2) 05/19/22 13:06 Globulin 3.6 g/dL (1.3-4.6) 05/19/22 13:06 Vitamin B12 1040 pg/mL (232-1245) 05/19/22 13:06 TSH 3.95 uIU/mL (0.27-4.20) 05/19/22 13:06 Random Cortisol 23.73 ug/dL (2.47-19.5) H 05/19/22 13:06 Vitals Last Vital Signs Temp 98.2 F 05/21/22 08:00 Pulse 72 05/21/22 08:08 Resp 18 05/21/22 08:08 BP 156/67 05/21/22 08:00 Pulse Ox 86 L 05/21/22 10:20 O2 Del Method 05/21/22 08:08 O2 Flow Rate 3 05/21/22 10:20 Discharge Plan Discharge Patient Disposition: Home Condition: Stable Prescriptions: Continued (DME) Fast Form Cock Up Splint See Rx Instructions .ROUTE .MEDSUPPLY Qty: 1 0RF Rx Instructions: As directed cyanocobalamin (vitamin B-12) 5,000 mcg capsule 5,000 mcg PO DAILY PRN (Reason: unknown) cholecalciferol (vitamin D3) 10 mcg (400 unit) capsule 10 mcg PO BEDTIME ezetimibe 10 mg tablet 10 mg PO BEDTIME [id number] 333-133-8.3 mg tablet 1 tab PO BEDTIME guaifenesin [Mucinex] 600 mg tablet extended release 12hr 600 mg PO Q12H PRN (Reason: congestion) Qty: 20 3RF magnesium oxide 400 mg magnesium tablet 400 mg PO DAILY albuterol sulfate 1.25 mg/3 mL solution for nebulization 1.25 mg inhalation QID PRN (Reason: shortness of breath or wheezing) Qty: 90 0RF hydrocodone-acetaminophen 5-325 mg tablet 1 tab PO Q6H PRN (Reason: pain) Qty: 12 0RF levofloxacin 750 mg tablet 750 mg PO DAILY 7 Days Qty: 7 0RF lisinopril 20 mg tablet 20 mg PO BID diltiazem HCl 120 mg tablet 120 mg PO QAM fluticasone propion-salmeterol 500-50 mcg/dose blister with device 1 inh inhalation Q12H ProAir HFA 90 mcg/actuation HFA aerosol inhaler 2 puff inhalation Q6H PRN (Reason: Shortness Of Breath) Spiriva Respimat 2.5 mcg/actuation mist 2 puff inhalation QAM Eliquis 5 mg tablet 5 mg PO BID Cardizem 120 mg Tablet 120 mg PO DAILY Discharge Orders: Discharge Order (Routine); Ordered 05/21/22 Ordered By: Emili Garcia Referrals: Shalonda Skelton FNP [Primary Care Provider] - Patient Instructions: Opioid Safety Discharge Attestations Time Spent in Discharge Care*: less than 30 min Quality Metrics Clinical Quality Measures [ No reported AMI, CVA or VTE this stay] Coding Level of Care Code Acute Chg FW DC note Diagnoses Hypoxia R09.02 Rib pain on right side R07.81 Mass of right lung R91.8 Hyponatremia E87.1 Pharyngitis J02.9 Atrial fibrillation I48.20 Atrial fibrillation type: unspecified chronic Lung cancer C34.90 PVD (peripheral vascular disease) I73.9 COPD (chronic obstructive pulmonary disease) J44.9
--- NOTE | 2022-05-21 13:33 | PC.NURSE ---
1300 Discharge instructions given to patient and daughter who voiced understanding. IV s removed with catheters intact from bilateral arms. patient tolerated well.1335 patient discharged to home with family patient in stable condition. home 02 on at 3 liters and personal belongings with patient. taken to private car per wheel chair.
[2022-05-22 13:20] LABS: Osmolality Serum 254 mOsm/kg (278-305)
[2022-05-22 13:20] LABS: Osmolality Urine 303 mOsm/kg (50-1200)
== END 2022-05-21 13:35 | disposition home health service (06) | DRG 641 ==
LOC: ER 16:16 → ICU 16:53 → MEDSURG 05-20 14:51
PROVIDERS: Admitting Provider Internal Medicine; Emergency Provider Family Medicine; PCP Nurse Practitioner Family; Visit Provider Internal Medicine
DX: E87.1 Hypo-osmolality and hyponatremia (principal); I48.20 Chronic atrial fibrillation, unspecified; C34.31 Malignant neoplasm of lower lobe, right bronchus or lung; I73.9 Peripheral vascular disease, unspecified; J44.9 Chronic obstructive pulmonary disease, unspecified; Z92.3 Personal history of irradiation; E86.1 Hypovolemia; Z79.891 Long term (current) use of opiate analgesic; Z79.51 Long term (current) use of inhaled steroids; Z79.01 Long term (current) use of anticoagulants; I35.0 Nonrheumatic aortic (valve) stenosis; Z87.891 Personal history of nicotine dependence; Z86.16 Personal history of COVID-19; I95.9 Hypotension, unspecified; Z88.5 Allergy status to narcotic agent; Z88.0 Allergy status to penicillin; Z88.2 Allergy status to sulfonamides
CPT/HCPCS: 36415; 71045; 80048; 80053; 82533; 82607; 83605; 83735; 83880; 83930; 83935; 84100; 84295; 84443; 84550; 85014; 85018; 85025; 86140; 87641; 93005; 93925; 94640; 94664; 94760; 96360; 96361; 97110; 97116; 97161; 99215; 99285; J7030; J7050; J7613; J7626; J7644

== ENCOUNTER 2022-05-27 05:54 | Outpatient (CLI) | payer MEDICARE, SELFPAY ==
--- NOTE | 2022-05-27 11:30 | PETR_ITS ---
PROCEDURE INFORMATION: Exam: PET/CT Skull Base to Mid-thigh Exam date and time: 05/27/2022 11:49 AM Age: 82 years old Clinical indication: Spiculated nodule suggestive of recurrent malignancy, 05/14/22 CT chest: ; Patient HX: Malignant neoplasm of unspecified part of unspecified bronchus or lung, other abnormal findings of lung field LABS AND CLINICAL REPORTS: Glucose: 92 mg/dl Treatment strategy for malignancy (PET staging): Initial Staging (PI) TECHNIQUE: Imaging protocol: Following at least four-hour fasting and following the injection of F-18-FDG, low dose CT images were obtained. Then, PET images were obtained. Attenuation corrected images were constructed using the CT scan. Fused images of PET and CT were reviewed. The standardized uptake values (SUV) reported below are maximum values within a region of interest, expressed in gm/ml. Exam includes orbital meatal line to mid-thigh. Radiopharmaceutical: 15.02 mCi F-18 FDG (Fluorodeoxyglucose), IV. Time of imaging post radiopharmaceutical administration: 1 hour Injection site: Right hand COMPARISON: CT chest 05/14/2022, PT PET Scan 07/23/2021 1:11 PM FINDINGS: Brain: Visualized brain has normal physiologic uptake. Pharynx: No abnormal uptake. Larynx: No abnormal uptake. Lungs, pleura and trachea: A moderate sized right pleural effusion is increased in size. Similar small to moderate left pleural effusion. In the superior segment of the right lower lobe a spiculated nodular density is similar compared with 05/14/2022 measuring approximately 1.8 x 2.2 cm on series 3, image 58, SUV max 2.1.Mild dependent streaky density in the lungs is consistent with atelectasis. A right lower lobe calcified granuloma is noted. Heart: Normal physiologic uptake. New small pericardial effusion. Mediastinal space: No abnormal uptake. Liver: No abnormal uptake. Gallbladder and bile ducts: No abnormal uptake. Cholecystectomy clips are present. Pancreas: No abnormal uptake. Spleen: No abnormal uptake. Adrenal glands: No abnormal uptake. Kidneys and ureters: Normal physiologic uptake. Stomach and bowel: No abnormal uptake. There are scattered colonic diverticula. Vasculature: No abnormal uptake. There are diffuse atherosclerotic changes. Lymph nodes: No abnormal uptake. Calcified mediastinal and bilateral hilar lymph nodes are without significant uptake. Bones/joints: No abnormal uptake in the visualized axial and appendicular skeleton. The bones appear demineralized. [id number] diffuse degenerative vertebral body spondylosis is present. Soft tissues: No abnormal uptake in the visualized head, neck, chest, abdomen, pelvis, and extremities. METRICS: Mediastinal blood pool: SUV max 2.3 PET/PET skulltothigh INITIAL [id number] IMPRESSION: 1. In the region of previously noted radiotracer avid malignancy in the superior segment right lower lobe on the prior PET-CT a spiculated nodular density similar to the 05/14/2022 CT exam is noted without elevated uptake suggestive of treated malignancy and/or post treatment scarring. 2. Similar small to moderate left and increased moderate right pleural effusion. 3. New small pericardial effusion. 4. Additional nonurgent findings as detailed above.
== END 2022-05-27 05:55 | disposition home or self-care (01) ==
LOC: RAD 05-29 05:54
PROVIDERS: PCP Nurse Practitioner Family; Visit Provider Internal Medicine Pulmonary Disease
DX: C34.90 Malignant neoplasm of unspecified part of unspecified bronchus or lung (principal); R91.8 Other nonspecific abnormal finding of lung field; I31.39 Other pericardial effusion (noninflammatory)
CPT/HCPCS: 78815; A9552

== ENCOUNTER 2023-05-22 07:30 | Outpatient (CLI) | payer MEDICARE, SELFPAY ==
--- NOTE | 2023-05-22 | PETR_ITS ---
PROCEDURE INFORMATION: Exam: PET/CT Whole Body Exam date and time: 05/22/2023 9:22 AM Age: 83 years old Clinical indication: Condition or disease; Primary cancer: Lung cancer; Prior surgery; Surgery date: 6+ months; Surgery type: Heart valve 07/2022 stint 07/13 LABS AND CLINICAL REPORTS: Glucose: 89 mg/dl Treatment strategy for malignancy (PET staging): Initial Staging (PI) TECHNIQUE: Imaging protocol: Following at least four-hour fasting and following the injection of radiopharmaceutical, low dose CT images were obtained. Then, PET images were obtained. Attenuation corrected images were constructed using the CT scan. Fused images of PET and CT were reviewed. The standardized uptake values (SUV) reported below are maximum values within a region of interest, expressed in gm/ml. Exam includes the whole body. Radiopharmaceutical: 10.16 mCi F-18 FDG (Fluorodeoxyglucose), IV. Time of imaging post radiopharmaceutical administration: 1 hour Injection site: Right antecubital COMPARISON: PT PET [facility] INITIAL [id number] 05/27/2022 11:49 AM FINDINGS: Brain: Visualized brain has normal physiologic uptake. Pharynx: No abnormal uptake. Larynx: No abnormal uptake. Lungs, pleura and trachea: New bilobed FDG avid pulmonary mass in the right upper lobe measuring 2 cm in size with an SUV max of 5.8 series 3, image 118. There is also a new subpleural FDG avid mass measuring 2 cm along the anterior right lung apex with an SUV max measuring 6.1 series 3, image 106. Heart: Normal physiologic uptake. Mediastinal space: No abnormal uptake. Liver: Multiple new focal areas of FDG avidity noted within the liver, difficult to visualized on CT, but the most evident lesion in the left hepatic lobe appears slightly hypoattenuating measuring 2 cm with an SUV max of 7.2 series 3, image 172. Gallbladder and bile ducts: No abnormal uptake. Pancreas: No abnormal uptake. Spleen: No abnormal uptake. Adrenal glands: No abnormal uptake. Kidneys and ureters: Normal physiologic uptake. Stomach and bowel: No abnormal uptake. Vasculature: No abnormal uptake. Lymph nodes: Multiple new, enlarged and FDG avid lymph nodes noted in the mediastinum, a reference precarinal node with coarse calcifications measures 3.2 x 2.0 cm series 3, image 123 and an SUV max of 7.6. Bones/joints: 1 cm sclerotic FDG avid lesion noted in the posterior left ilium with an SUV max of 4.3 series 3, image 243. Soft tissues: No abnormal uptake in the visualized head, neck, chest, abdomen, pelvis, and extremities. PET/PET WB melanoma INITIAL [id number] IMPRESSION: 1. Progression of disease. New right upper lobe FDG avid masses consistent with metastatic disease. 2. Multifocal FDG avid mediastinal adenopathy consistent with metastasis. 3. Multifocal areas of FDG avidity within the liver subtly seen on CT consistent with hepatic metastases. 4. Sclerotic FDG avid lesion within the posterior left ilium consistent with osseous metastasis.
== END 2023-05-22 07:31 | disposition home or self-care (01) ==
LOC: RAD 07:35
PROVIDERS: PCP Nurse Practitioner Family; Visit Provider Nurse Practitioner Family
DX: C34.31 Malignant neoplasm of lower lobe, right bronchus or lung (principal); R91.8 Other nonspecific abnormal finding of lung field; R59.0 Localized enlarged lymph nodes; R93.2 Abnormal findings on diagnostic imaging of liver and biliary tract; R93.7 Abnormal findings on diagnostic imaging of other parts of musculoskeletal system; Z95.5 Presence of coronary angioplasty implant and graft; Z95.2 Presence of prosthetic heart valve
CPT/HCPCS: 78816; A9552

== ENCOUNTER 2023-06-04 14:30 | Oncology outpatient (recurring) (ONCR) | payer MEDICARE, SELFPAY ==
--- NOTE | 2023-06-05 09:05 | ONCRAD EPV_ITS ---
Radiation Oncology Established Patient Visit Patient: Angella Walls [id number] : 1940 Age: 83 Sex: Female Dictated by: Dr. Blanca Gutierres Date of Service: 06/04/2023 Referring Physician(s) : Dr. Rankin Diagnosis: C34.30 - Malignant neoplasm of lower lobe, unspecified bronchus or lung, Diagnosed 07/23/2021 (Active) stage IV with mediastinal nodes, liver metastasis, and bone metastasis. Radiotherapy to Date: Course: SABR Lung 2021, Treatment Site: SABR ??? RLL, Ref. ID: [id number], Energy: 6X, Dose/Fx (cGy): 1,800, #Fx: 3 / 3, Dose Correction (cGy): 0, Total Dose Delivered (cGy): 5,400, Start Date: 08/17/2021, End Date: 08/22/2021, Elapsed Days: 5 Current History: Mrs. Smallwood is an 83-year-old lady who in the spring 2021 underwent SBRT to a solitary lung lesion. At that time she did not have any biopsy secondary to her poor pulmonary function. Her pulmonary function however was mostly due to her heart function. Since that time she has had a valve replaced and her pulmonary function has markedly improved. She had a follow-up PET scan last month and was found to have widely metastatic disease with liver and bone metastasis as well as progression of disease in the mediastinum and lung. She is here today to discuss those results and what it would take to proceed with additional intervention or what would happen if she did not. Current Medications: Advair Diskus, apixaban, b-12, nxrdsrm-Joygaqpnk-Elzr, crestor, dilTIAZem HCl, ezetimibe, lisinopril, lisinopril, qunol CoQ10/Ubiquinol/Dalton, spiriva Respimat. Allergies: Macrolide Antibiotics, Penicillins, Sulfa Antibiotics and Metamucil. Current Complaints / Review of Systems: . She currently is having no new aches or pains. She is having difficulty with maintaining her weight. She has had a decrease in her appetite recently. Vital Signs: Performed on 06/04/2023 2:52 PM BMI - 17.906 kg/m2 (low), Height - 65 in, Weight - 107.6 lbs, Temperature - 96.8 f, Pulse - 67 /min, Respiration - 18 /min, O2 Sat - 99 %, Pain - 0, Fatigue - 2 and BP - 145/ 52 mm(hg)(high/low). Physical Exam: General: Alert and oriented x 3. No acute distress. HEENT: Normocephalic, atraumatic. Extraocular Movements Intact: Pupils Equal, Round, Reactive to Light LUNGS: Respiratory rate is regular nonlabored HEART: Regular rate and rhythm,. MUSCULOSKELETAL: No gross musculoskeletal abnormalities noted ABDOMEN abdomen is nonprotuberant. Patient has minimal body fat. EXTREMITIES: No obvious edema was noted in the upper or lower extremities. NEUROLOGIC: Alert and orient x 3. She currently walks with a cane. Speech intact. Psychological: Appropriate for current situation.. Performance Status: 90 Lab: None pending. Pathology: Primary, c34.30 - malignant neoplasm of lower lobe, unspecified bronchus or lung, Diagnosed 07/23/2021 (active) stage IV imaging: See HPI Impression: Stage IV presumed lung cancer 2 years after SBRT for solitary lung lesion. Plan: I reviewed the past history with the patient and her 3 daughters. We discussed how 2 years ago she did not have a biopsy. To proceed with any additional intervention at this point she would need to have a biopsy done for PD-L1 markers. We talked about what this would entail. I reviewed with her that it appears possibly the easiest place to obtain a biopsy would be through bronchoscopy and a biopsy of the mediastinal adenopathy. Her daughter is a nurse and was quite helpful. Her main concern was not having any pain. We reassured her that she would not feel the biopsy as she would be sedated. We then talked about the different options once she had a biopsy and how that would depend on the markers. There would be the potential that she may be able to have immune therapy and that this might actually by her quite a bit of time before her disease progressed. I recommended to her at this point that she visit with all of the physicians who would be subsequently involved in her care to discuss whether bronchoscopy with biopsy would be in order. Will set her up to see pulmonary for this. Once she has had the biopsy done she can visit with medical oncology to discuss options for treatment. At this point she was still deciding what she would like to do. I recommended that we go ahead and proceed with getting the pulmonary appointment established which I will put through the order. I have asked her to call if she should have any additional questions and we can go over those over the phone if necessary. We did talk about how she did nothing that the typical life expectancy is on average about 6 months. She and her family verbalized understanding of this. I did recommend that if she should not proceed with any treatment that we get her established with hospice is soon as possible. At this point she will consider what she would like to do. I will go ahead and establish the pulmonary appointment. And we will proceed from there. Signed by: 06/05/2023 9:03:42 AM <<Signature on File>> Time spent with patient:60 CPT Code: CPT Code:
== END 2023-06-21 23:59 | disposition home or self-care (01) ==
PROVIDERS: PCP Nurse Practitioner Family; Visit Provider Radiology Radiation Oncology
DX: C79.51 Secondary malignant neoplasm of bone (principal); C34.31 Malignant neoplasm of lower lobe, right bronchus or lung; C78.7 Secondary malignant neoplasm of liver and intrahepatic bile duct; Z95.4 Presence of other heart-valve replacement; Z92.3 Personal history of irradiation
CPT/HCPCS: 99215

== ENCOUNTER 2023-06-19 07:53 | Day surgery (SDC) | payer MEDICARE, SELFPAY ==
[2023-06-19] VITALS (10 sets, daily range): BP systolic 129–168; BP diastolic 46–68; PULSE 53–68; RESP 14–21; TEMP 36.2–36.9; O2SAT 92–98; BMI 18.0
--- NOTE | 2023-06-19 07:57 | ECG_ITS ---
[facility] Test Date: 2023-06-19 Pat Name: Angella Walls Department: Room: Gender: Female [employer]: : 1940 Requested By: Gonzalo Acosta Order Number: [id number] Betancur MD: Antwon Doherty M.D. Measurements Intervals [place] Rate: 53 P: 80 CO: 203 QRS: -25 QRSD: 93 T: 65 QT: 480 QTc: 452 Interpretive Statements SINUS BRADYCARDIA WITH OCCASIONAL SUPRAVENTRICULAR PREMATURE COMPLEXES INFERIOR MYOCARDIAL INFARCTION , PROBABLY OLD [40+ ms Q WAVE AND/OR ST/T ABNORMALITY IN II/aVF] Compared to ECG 05/19/2022 13:34:32 Myocardial infarct finding now present Atrial fibrillation no longer present Electronically Signed On 06-19-2023 11:54:20 CHAIN PULLER by Antwon Doherty M.D. [email or web address]
--- NOTE | 2023-06-19 08:46 | ANES.PREANE2 ---
Pre-Anesthetic Assessment Height/Weight: Height 1.63 m Weight 47.627 kg Temp Pulse Resp BP Pulse Ox O2 Del Method 98.5 F 53 L 16 164/58 95 Room Air 06/19/23 08:10 06/19/23 08:10 06/19/23 08:10 06/19/23 08:10 06/19/23 08:10 06/19/23 08:10 Operation Date: 06/19/23 09:00 Proposed Procedures p EBUS, 45220, 88019, 60256, 02388, 64197, 71343, 58316, 33363, 26183, 28536, 89814, 37290,R91.8(Bilateral) - Carlos Rankin MD Familial anesthetic complications: None Was Beta Bob taken within 24 hours: Yes (This morning) Was Clonidine taken within 24 hours: N/A Last intake: Intake Last Liquid Date 06/18/23 Last Liquid Time 20:30 Last Solid Date 06/18/23 Last Solid Time 18:30 Social No alcohol and No tobacco (Quit smoking >30 years ago) Exam alert and oriented x 3 Diminished BBS, irregular rhythm Airway Submandibular: within normal limits Cervical ROM: within normal limits Mallampati: Class II Dentition: false History/ROS No significant history except as noted and No significant complaints Pulmonary Asthma, Chronic Obstructive Pulmonary Disease, Cough and Exertional Dyspnea CV/HEM Atrial Fibrillation, Anemia, Arrythmia, Coronary Artery Disease, Hypertension and Peripheral Vascular Disease TAVR July 2022, stents 2022, follows with cardiology last saw in December 2022 No bp right arm 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 None reported Hepatic None reported GI History of GI bleed Metabolic Hyperlipidemia and Thyroid Disease [facility] Osteoarthritis/DJD Neuropsych Neuropathy Anesthetic Plan ASA status: 4 Anesthesia: Anesthesia Evaluation and General Risk of > 500 ml blood loss (7ml/kg in children): No Medications/Allergies Home Medications Medication Instructions Recorded Confirmed Last Taken Type Fast Form Cock Up Splint #1 ea 11/08/20 06/13/23 Unknown Rx cholecalciferol (vitamin D3) 10 10 mcg PO BEDTIME 03/10/21 06/19/23 06/18/23 History mcg (400 unit) capsule ezetimibe 10 mg tablet 10 mg PO BEDTIME 07/06/21 06/19/23 06/18/23 History magnesium oxide 400 mg PO DAILY 12/21/21 06/19/23 06/18/23 History albuterol sulfate 1.25 mg/3 mL 1.25 mg (3 mL) inhalation QID PRN 02/01/22 06/19/23 Unknown Rx solution for nebulization shortness of breath or wheezing #90 mL albuterol sulfate 90 mcg/actuation 2 puff inhalation Q6H PRN 05/19/22 06/19/23 06/19/23 History aerosol inhaler (ProAir HFA) Shortness Of Breath wheelchair #1 ea 05/22/22 06/13/23 Unknown Rx atorvastatin 40 mg tablet 40 mg PO DAILY 07/10/22 06/19/23 06/18/23 History clopidogrel 75 mg tablet (Plavix) 75 mg PO DAILY 07/10/22 06/15/23 06/13/23 History coenzyme Q10 30 mg capsule (CoQ-10) 30 mg PO DAILY 07/10/22 06/19/23 06/18/23 History lisinopril 20 mg tablet 20 mg PO DAILY PRN Hypertension 07/10/22 06/19/23 06/18/23 History fluticasone 500 mcg-salmeterol 50 See Rx Instructions .Route 11/03/22 06/19/23 06/19/23 Rx mcg/dose blistr powdr for .COMPLEX #60 ea inhalation tiotropium bromide 2.5 See Rx Instructions .Route 02/16/23 06/19/23 06/19/23 Rx mcg/actuation mist for inhalation .COMPLEX #4 grams (Spiriva Respimat) pantoprazole 40 mg tablet,delayed See Rx Instructions .Route 03/09/23 06/19/23 06/18/23 Rx release .COMPLEX #60 tabs metoprolol tartrate 25 mg tablet 25 mg PO BID 06/13/23 06/19/23 06/19/23 History Allergies Allergy/AdvReac Type Severity Reaction Status Date / Time Macrolide Antibiotics Allergy Severe Unconscious Verified 06/15/23 13:16 Penicillins Allergy Severe Unknown Verified 06/15/23 13:16 codeine Allergy Unknown Verified 06/15/23 13:16 Sulfa (Sulfonamide Allergy Unknown Verified 06/15/23 13:16 Antibiotics) metamucil orange Allergy Unknown Uncoded 06/13/23 11:49 unknown names of antibiotics Allergy Unknown Uncoded 06/13/23 11:49 [facility] Anesthesia Medical History (Updated 06/19/23 @ 09:04 by Carlos Rankin MD) Asthma-COPD overlap syndrome Hyponatremia Acute respiratory failure with hypoxia Pleural effusion on right Mass of right lung Rib pain on right side Hypoxia Pharyngitis Lung cancer, lower lobe Lung cancer Chronic anticoagulation Atrial fibrillation Exertional dyspnea Aortic stenosis Fracture of distal end of left radius and ulna PVD (peripheral vascular disease) COPD (chronic obstructive pulmonary disease) Hx of cardiac murmur HTN (hypertension) Surgical History History of hernia repair History of hysterectomy Family History Mother CAD (coronary artery disease) Stroke Father CAD (coronary artery disease) Lung disease Brother Diabetes Social History Smoking and tobacco/nicotine status: former use of tobacco/nicotine Quit status (tobacco/nicotine): has quit using Year quit tobacco: quit 1985 Former quit date comment: 1 ppd x 30 years Alcohol intake: never Current gender identity: Female Data Anesthesia Cardiac Studies: No Data to Display
--- NOTE | 2023-06-19 09:02 | W.PM.OPSUD ---
Surgery/Procedure H&P Update DATE OF PROCEDURE: June 19, 2023 DATE H&P PERFORMED: 06/13/23 H&P UPDATE INFORMATION: I have reviewed H&P completed within last 30 days, I have examined patient prior to procedure and No changes to prior documentation CHANGES TO PREVIOUS DOCUMENTATION: none PREOP DIAGNOSIS: suspected malignancy PRIMARY INDICATION FOR PROCEDURE: to obtain tissue samples to rule out malignancy PLANNED PROCEDURE: Operation Date: 06/19/23 09:00 Proposed Procedures p EBUS, 15961, 52152, 52377, 58928, 23339, 55954, 78484, 56798, 93556, 15712, 16992, 31487,R91.8(Bilateral) - Carlos FierrorMD Related Problem List Diagnoses (1) Suspected lung cancer: (2) Mediastinal adenopathy:
[2023-06-19] MEDS: sodium chloride 0.9% 1,000 ML 30 ML IV (09:20)
[2023-06-19 09:21] LABS: Blood Urea Nitrogen 15 mg/dL (8-23); Calcium 9.4 mg/dL (8.5-10.5); Carbon Dioxide 24 mmol/L (22-29); Chloride 96 mmol/L (98-107); Creatinine Clr Calc Pharmacy 39.4634; Glucose 82 mg/dL (65-115); Osmolality Calculated 276 mOsm/kg (285-295); Sodium 133 mmol/L (136-145)
[2023-06-19 09:22] LABS: Anion Gap 17.4 (5-19); Potassium 4.4 mmol/L (3.5-5.1)
[2023-06-19] MEDS: lidocaine 1% INJ 10 mL (per mL) 20 ML XX (09:51)
[2023-06-19 10:34] LABS: Apprearance, Bronch Wash Cloudy (CLEAR); Color, Bronc Wash Slight Pink; Cyto Order Verification Order Verified
[2023-06-19] MEDS: EPINEPHrine 1 mg/mL INJ XX (10:43)
--- NOTE | 2023-06-19 10:55 | P.OP_ITS ---
Operative Report Date of procedure: June 19, 2023 Pre-op diagnosis: Suspected metastatic lung cancer Post-op diagnosis: Suspected metastatic lung cancer Surgeon: Carlos Rankin MD Brief History: 83-year-old Ms. Angella sepulveda with PMH COPD, hypertension, mild aortic stenosis, atrial fibrillation, peripheral vascular disease,-1 pack/day for 30 years initially referred In 2021 by Ms. Carina Skelton [employer] for chronic productive cough with yellow sputum for multiple years. A CT chest to look for evidence of bronchiectasis on July 20, 2021 demonstrated a 1.6 cm x 1.3 cm right lower lobe nodule. A PET scan ordered on July 23, 2021 confirmed the right lower lobe solid nodule (SUV 8.4).? There was no metastatic disease reported. Her pulmonary function test showed identified an FEV1 of 0.97 L (48% of predicted) and a DLCO 12 mL/min/mmHg (49% of predicted). On account of the patient's high risk status for pneumothorax and high risk for surgical resection due to poor lung function, a biopsy was not performed. Given stage I A2(T1BN0)-decision was made to refer for stereotactic ablative body radiotherapy. She received SABR between the dates of August 17, 2021 through August 22, 2021. A prescribed dose of 54 Gy was delivered in three fractions encompassing [address] scan ordered on February 24, 2022 described a reduction in the size of the right lower-lobe nodule (measured 0.9 cm x 1.1 cm). She was evaluated at the [facility] Emergency Department on May 14, 2022 for generalized malaise and right rib pain. A chest radiograph did not identify any abnormalities. A thoracic CT scan (independently reviewed in [facility]) described an increase in size in the right lower-lobe pulmonary nodule measuring 2 cm x 1.6 cm x 1.4 cm and bilateral pleural effusions. No lymphadenopathy was reported. She had a PET CT scan 05/27/2022: Which showed right lower lobe spiculated nodular density similar to 05/14/2022 without elevated uptake suggestive of treated malignancy and/or posttreatment scarring. Patient's daughters today-mentioned that since May 2022-she had coronary angiogram showed stenosis mid RCA, 2 stents to mid RCA on 06/27/2022. She had TAVR plan for severe aortic stenosis 08/02/2022. And started on Plavix as well as she is taking Eliquis for her A-fib RVR. In the summer 2022-she had an admission for GI bleeding secondary to Eliquis and it was held. In September 2022- unfortunately she fell and broke her left hip and underwent surgical fixation. Due to all his hospitalizations she missed pulmonary appointments. Recently a PET CT scan was done 05/22/2023-which showed new right upper lobe FDG avid masses, FDG avid mediastinal adenopathy, multifocal FDG avid ET within the liver, FDG avid lesion in posterior left ilium-consistent with metastatic disease. She followed up with radiation oncology-who referred to oncology-who needs tissue diagnosis given her metastatic spread in order to proceed with chemotherapy. I discussed with patient and her daughters about her using endobronchial ultrasound to get tissue biopsies from mediastinal/hilar lymph nodes. Discussed about possible complications of bleeding and pneumothorax. They verbalized understanding and agreed to go ahead with biopsy. Hence she comes today. She held her Plavix 5 days prior to the procedure. Procedure: Dx Bronchoscope w/BAL Dx Bronchoscopy w/Bronchial or Endobronchial biopsy(s), single or multiple sites Bronchoscopy w/ therapeutic aspiration of the tracheobronchial tree (clearance of airway secretions, removal of mucus plugs) EBUS Sampling 1/2 nodes Indication: PET active mediastinal/hilar lymph nodes-rule out Malignancy Anesthesia: General anesthesia. Local anesthesia: The dion in the right and left mainstem bronchi were anesthetized with 1% lidocaine, 3 mL. Description of the procedure: The procedure was explained to the patient and the consent was obtained. The patient was brought to the OR. The patient underwent induction for general anesthesia and laryngeal mask airway was placed. The bronchoscope was advanced through the laryngeal mask airway. The vocal cords were visualized. They appear normal and mobile. 1 mL of 1% lidocaine was instilled over the vocal cords. Bronchoscope was advanced through the vocal cords and advanced into the trachea. Tracheal mucosa appeared normal, no endotracheal lesion was seen. The dion was sharp. 1 mL each of 1% lidocaine was instilled in the trachea the right and left mainstem bronchi for local anesthesia. There were thick mucus secretions which were suctioned right away. In a systematic manner bilateral bronchial tree was then examined. The bronchoscope was then introduced into the right mainstem bronchus. The right upper lobe, right middle lobe and right lower lobe bronchi were examined up to the third subsegmental level and no abnormalities were identified except for completely occluded superior segment of right lower lobe airway. The mucosa appeared normal with no endobronchial lesions, active bleeding or mucous plugs. There were Mucous secretions which were suctioned right away. The bronchoscope was advanced into the left mainstem bronchus. The left upper lobe, and lingula were examined up to the third subsegmental level and no abnormalities were identified. Mucosa of left side tracheal bronchial tree appeared normal with no endobronchial lesion. There were clear secretions which were suctioned right away. With the help of forceps-endobronchial biopsies were taken from the occluded superior segment opening of right lower lobe airway. Bronchoalveolar lavage was taken near superior segment of right lower lobe Bronchoscope was retracted and Endobronchial Ultrasound (EBUS) was introduced. Identified a large hypoechoic mass in 4R area posteriorly as well as in station 11 R area. Using [id number] were taken from all station 4L as well as station 11 R; there was some evidence of bleeding which is controlled with instillation of cold saline as well as diluted epinephrine. After making sure there is no active bleeding, bronchoscope retracted and procedure terminated. Samples: 1. Endobronchial biopsies from occluded superior segment of right lower lobe airway.. 2. Bronchoalveolar lavage was performed after wedging the bronchoscope at the entrance of occluded superior segment of right lower lobe. 30 mL of saline was instilled, fluid return was 10 mL. Bronchoalveolar lavage specimen was sent for cell count and differential, gram stain and culture, cytology B. EBUS guided Fine-needle aspiration biopsies were taken from station 4R and station 11 R 1. Total of 4 passes were made using needle aspiration from station 4R; all the material was placed in formalin and sent for histopathology 2. Total of 3 passes were made using needle aspiration from station 11 R: all the material was placed in formalin and sent for histopathology Complications: None.The patient was extubated and brought to the PACU in stable condition. Disposition: Patient can be discharged home in stable condition. Pt is aware that I am going to call them to update final biopsy results once available.
[2023-06-19 12:33] LABS: PATH Referral Yes; Total Cells Counted Bronch 200
--- NOTE | 2023-06-19 16:26 | ANE.PACU2 ---
Inpatient post-anesthesia follow up: Airway intact: Yes Vital signs: Temperature 97.4 F Pulse Rate 56 Respiratory Rate 16 Blood Pressure 168/51 Pulse Oximetry 95 Oxygen Delivery Me thod Room Air Oxygen Flow Rate Fraction of Inspir ed Oxygen Hydration adequate: Yes Nausea and vomiting: No Pain level: 2 Mental status: Baseline
== END 2023-06-19 12:00 | disposition home or self-care (01) ==
PROVIDERS: Student in an Organized Health Care Education/Training Program; PCP Nurse Practitioner Family; Visit Provider Internal Medicine Pulmonary Disease
PROC: BB4BZZZ Ultrasonography of Pleura (ICD-10-PCS; principal; 2023-06-19 09:45)
PROC: 0BJ08ZZ Inspection of Tracheobronchial Tree, Via Natural or Artificial Opening Endoscopic (ICD-10-PCS; CPT 31622; 2023-06-19 09:45)
DX: R91.8 Other nonspecific abnormal finding of lung field (principal); C96.9 Malignant neoplasm of lymphoid, hematopoietic and related tissue, unspecified; J44.9 Chronic obstructive pulmonary disease, unspecified; I10 Essential (primary) hypertension; I35.0 Nonrheumatic aortic (valve) stenosis; I48.91 Unspecified atrial fibrillation; I73.9 Peripheral vascular disease, unspecified; I25.10 Atherosclerotic heart disease of native coronary artery without angina pectoris; E78.5 Hyperlipidemia, unspecified; Z79.01 Long term (current) use of anticoagulants; Z87.891 Personal history of nicotine dependence
CPT/HCPCS: 31624; 31625; 31645; 31652; 36415; 76937; 80048; 80503; 87070; 87205; 88112; 88305; 88309; 88342; 89050; 93005; J0171; J1100; J2371; J2405; J2704; J3490; J7030

== ENCOUNTER 2023-07-02 14:54 | Outpatient (CLI) | payer MEDICARE, SELFPAY ==
--- NOTE | 2023-07-02 15:00 | CT_ITS ---
WS: [id number] CT CHEST, ABDOMEN AND PELVIS WITH CONTRAST HISTORY: malignant neoplasm of unspecified part of lung TECHNIQUE: Contiguous 5 mm axial imaging performed through the chest, abdomen and pelvis with IV cont rast, oral contrast has been provided. Coronal and sagittal reformats chest. Coronal and sagittal ref ormats through the abdomen and pelvis. All CT scans at [facility] use at least one of these d ose optimization techniques: automated exposure control; mA and/or kV adjustment per patient size (in cludes targeted exams where dose is matched to clinical indication); or iterative reconstruction. CONTRAST: Omnipaque 350; 100 mL IV. DLP: 483.51 mGy.cm COMPARISON: PET/CT 05/22/2023, CT chest 05/14/[address]: FDG avid RIGHT upper lobe subpleural nodule with adjacent interstitial reticulation measure s 2.2 x 1.7 cm. There is pleural thickening with this nodule extending into the lung parenchyma. Isrrael tional bilobed nodule in the more central RIGHT upper lobe measuring 2.0 x 1.7 cm. This additional no dule was also FDG-avid. Mild dependent changes and very tiny layering pleural effusions. Mediastinal and hilar lymphadenopathy. Numerous enlarged, abnormal RIGHT paratracheal lymph nodes. Th e largest cluster measures 2.6 cm. There is a larger lymph node in the inferior RIGHT paratracheal re gion extending to the RIGHT suprahilar location measuring 2.5 x 3.6 cm. Mildly enlarged heart. No supraclavicular lymph nodes. No axillary adenopathy. No destructive bone le sions. Abdomen CT: Abnormal liver. There numerous metastatic lesions throughout the liver of various sizes. These lesions range in size from a few millimeters to 4.0 x 3.3 cm in the LEFT lobe. No bile duct dil atation. Normal portal vein. Prior cholecystectomy. Normal spleen with granulomata. No adrenal mass. Atrophic pancreas. Bilateral cortical thinning and scarring of each kidney with no obstruction. Bilateral acquired cysts and too small to characterize hypodensities. Moderate atherosclerosis aorta. No GI tract obstruction . Vincent hepatis lymph node 1.4 cm was not FDG avid. No adenopathy identified in the abdomen or pelvis. Ventral abdominal wall hernia contains fat only. Pelvic CT: No inguinal lymph nodes. No free fluid in the pelvis. There is a very tiny sclerotic focus in the LEFT ilium suspicious for osseous metastasis on the recen t PET/CT. IMPRESSION: 1. RIGHT upper lobe subpleural PET/CT positive nodule measures 2.2 x 1.7 cm. There is interstitial r eticulation extending medially into the lung. No interval change since the PET/CT. 2. Additional PET/CT positive lobulated nodule central RIGHT upper lobe measures 2.0 x 1.7 cm. 3. Mediastinal and hilar lymphadenopathy. Numerous enlarged lymph nodes which were PET/CT positive. No change. 4. Extensive masses throughout the liver ranging from a few millimeters to 4.0 cm in diameter consis tent with metastatic disease. 5. No adrenal mass.
[2023-07-02] MEDS: iohexol 350 mg/mL 500 mL Btl (per mL) PO (15:32)
[2023-07-02] MEDS: iohexol 350 mg/mL 500 mL Btl (per mL) IV (16:05)
== END 2023-07-02 14:55 | disposition home or self-care (01) ==
LOC: RAD 14:55
PROVIDERS: PCP Nurse Practitioner Family; Visit Provider Internal Medicine
DX: C34.90 Malignant neoplasm of unspecified part of unspecified bronchus or lung (principal); D63.0 Anemia in neoplastic disease; R59.0 Localized enlarged lymph nodes; K76.9 Liver disease, unspecified
CPT/HCPCS: 71260; 74177; Q9967

== ENCOUNTER 2023-07-03 08:00 | Oncology outpatient (recurring) (ONCR) | payer MEDICARE, SELFPAY ==
[2023-06-27 09:20] LABS: Basophils # 0.1 10^3/uL (0.0-0.1); Basophils % 0.9 %; Eosinophils # 0.2 10^3/uL (0.0-0.8); Eosinophils % 1.7 %; Hematocrit 32.1 % (36-47); Lymphocytes % 10.9 %; Mean Corpuscular HGB Conc 32.4 g/dL (30-55); Mean Corpuscular Hemoglobin 29.5 pg (27-33); Mean Corpuscular Volume 91.2 fl (85-98); Mean Platelet Volume 8.2 fL (7.4-10.4); Monocytes % 10.7 %; Neutrophils # 7.07 10^3/uL (1.8-7.7); Neutrophils % 75.3 %; Nucleated Red Blood Cells % 0 %; Platelet Count 273 10^3/cmm (157-399); Red Blood Count 3.52 10^6/uL (3.85-5.65); Red Cell Distribution Width 15.9 % (12.1-15.1); White Blood Count 9.38 10^3/uL (3.29-11.43)
[2023-06-27 10:20] LABS: Hepatitis A Antibody IgM Non-Reactive (Nonreactive); Hepatitis B Core AB, Total Non-Reactive (Nonreactive); Hepatitis B Surface AB < 3.5 (11.5-1000); Hepatitis B Surface Antigen Non-Reactive (Nonreactive); Hepatitis C Virus Antibody Non-Reactive (Nonreactive)
[2023-06-27 10:21] LABS: Alanine Aminotransferase 24 U/L (0-33); Albumin Level 3.9 g/dL (3.5-5.2); Alkaline Phosphatase 122 U/L (35-105); Anion Gap 14.5 (5-19); Aspartate Amino Transferase 25 U/L (0-32); Blood Urea Nitrogen 15 mg/dL (8-23); Carbon Dioxide 24 mmol/L (22-29); Chloride 97 mmol/L (98-107); Creatinine Clr Calc Pharmacy 45.0177; Ferritin 73 ng/mL (15-150); Globulin 3.6 g/dL (1.3-4.6); Glucose 74 mg/dL (65-115); Iron 64 ug/dL (37-145); Osmolality Calculated 271 mOsm/kg (285-295); Percent Saturation 20.8 % (20-50); Potassium 4.5 mmol/L (3.5-5.1); Sodium 131 mmol/L (136-145); Thyroid Stimulating Hormone 2.71 uIU/mL (0.27-4.20); Total Bilirubin 0.4 mg/dL (0.15-1.2); Total Iron Binding Capacity 307 mcg/dl; Total Protein 7.5 g/dL (6.6-8.7); Unsaturated Iron Binding 243 ug/dL (112-347); Vitamin B12 696 pg/mL (232-1245)
[2023-06-27 10:24] LABS: Folate Level 11.5 ng/mL (4.8-37.3)
[2023-06-27 10:49] LABS: Free T4 Free Thyroxine 1.63 ng/dL (0.82-1.77)
[2023-06-27 11:16] LABS: Reticulocyte % 1.9 % (0.5-2.0)
[2023-06-27 11:37] LABS: Lactate Dehydrogenase 280 U/L (135-214)
[2023-06-30 06:19] LABS: Methylmalonic Acid 203 nmol/L (87-318)
[2023-07-02 12:45] LABS: Soluble Transferrin Receptor 1.57 mg/L (0.76-1.76)
[2023-07-03 11:16] LABS: Basophils # 0.1 10^3/uL (0.0-0.1); Basophils % 0.9 %; Eosinophils # 0.1 10^3/uL (0.0-0.8); Eosinophils % 1.2 %; Hematocrit 30.2 % (36-47); Lymphocytes # 1.3 10^3/uL (0.8-4.8); Lymphocytes % 14.3 %; Mean Corpuscular HGB Conc 33.4 g/dL (30-55); Mean Corpuscular Hemoglobin 29.9 pg (27-33); Mean Corpuscular Volume 89.3 fl (85-98); Mean Platelet Volume 8.3 fL (7.4-10.4); Monocytes # 0.8 10^3/uL (0.2-0.9); Monocytes % 8.5 %; Neutrophils # 6.81 10^3/uL (1.8-7.7); Neutrophils % 74.8 %; Nucleated Red Blood Cells % 0 %; Platelet Count 268 10^3/cmm (157-399); Red Blood Count 3.38 10^6/uL (3.85-5.65); Red Cell Distribution Width 15.6 % (12.1-15.1)
[2023-07-03 11:47] LABS: Alanine Aminotransferase 19 U/L (0-33); Albumin Level 3.9 g/dL (3.5-5.2); Alkaline Phosphatase 116 U/L (35-105); Blood Urea Nitrogen 15 mg/dL (8-23); Calcium 9.2 mg/dL (8.5-10.5); Carbon Dioxide 23 mmol/L (22-29); Chloride 93 mmol/L (98-107); Creatinine Clr Calc Pharmacy 44.8623; Globulin 3.5 g/dL (1.3-4.6); Glucose 84 mg/dL (65-115); Osmolality Calculated 264 mOsm/kg (285-295); Sodium 127 mmol/L (136-145); Total Bilirubin 0.4 mg/dL (0.15-1.2); Total Protein 7.4 g/dL (6.6-8.7)
[2023-07-03 11:48] LABS: Anion Gap 16.3 (5-19); Aspartate Amino Transferase 26 U/L (0-32); Potassium 5.3 mmol/L (3.5-5.1)
[2023-07-03] MEDS: sodium chloride 0.9% 250 ML 75 ML IV (12:24)
[2023-07-03] MEDS: diphenhydrAMINE 50 mg/mL SDV 1mL 25 MG IVP (12:32)
[2023-07-03] MEDS: famotidine 20 mg/2 mL INJ IVP (12:35)
[2023-07-03] MEDS: acetaminophen 325 mg Tablet 650 MG PO (12:35)
[2023-07-03] MEDS: fosaprepitant 150 MG in sodium chloride 0.9% 150 ML 300 MG IV (13:03)
[2023-07-03] MEDS: durvalumab 1,500 MG in sodium chloride 0.9% 250 ML 280 MG IV (13:39)
[2023-07-03] MEDS: SODIUM CHLORIDE 0.9% IV (14:45)
[2023-07-03] MEDS: CARBOPLATIN IV (14:45)
[2023-07-03] MEDS: [UNRECOGNIZED DRUG - REMARK] 507.5 MG IV (15:52)
[2023-07-03 16:59] VITALS: BP 164/63; PULSE 65; TEMP 36.3; O2SAT 97
== END 2023-07-03 23:59 | disposition home or self-care (01) ==
PROVIDERS: Internal Medicine; PCP Nurse Practitioner Family; Visit Provider Radiology Radiation Oncology
DX: Z53.9 Procedure and treatment not carried out, unspecified reason (principal); Z51.11 Encounter for antineoplastic chemotherapy; C34.31 Malignant neoplasm of lower lobe, right bronchus or lung; C79.51 Secondary malignant neoplasm of bone; Z79.52 Long term (current) use of systemic steroids; Z79.899 Other long term (current) drug therapy
CPT/HCPCS: 36415; 36573; 71045; 71260; 74177; 80053; 82607; 82728; 82746; 83540; 83550; 83615; 83921; 84238; 84439; 84443; 84630; 85025; 85045; 86705; 86706; 86709; 86803; 87340; 96367; 96375; 96413; 96417; 99205; 99215; A4222; J1100; J1200; J1453; J1642; J3490; J7030; J7040; J7050; J9045; J9173; J9181; Q9967

== ENCOUNTER → 2023-07-03 09:37 | Day surgery (SDC) | payer MEDICARE, SELFPAY ==
--- NOTE | 2023-07-03 09:38 | XR_ITS ---
WS: [id number] CHEST XRAY TECHNIQUE: Portable chest. CLINICAL INFORMATION: Post PICC insertion FINDINGS: RIGHT PICC line with tip in the distal SVC. No pneumothorax. IMPRESSION: RIGHT PICC line good position.
[2023-07-03 09:45] VITALS: BP 163/60; PULSE 56; RESP 18; TEMP 36.3; O2SAT 96
--- NOTE | 2023-07-03 10:20 | PC.NURSE ---
Double lumen PICC placed to right basilic vein. Referred to vascular access nurse from [facility] for PICC placement due to need for chemotherapy. Risks and benefits discussed and consent obtained from patient. Right arm assessed with right basilic vein measuring 4 mm, straight, and apparent best choice for placement. Using sterile technique and MST, right basilic vein accessed x 1 stick. Mid-arm circumference measured 10 cm from right AC 20 cm. Trimmed cath 38 cm with 0 cm external length noted. CXR shows tip in distal SVC, in good position for use per radiologist. Line secured with stat-lock. Insertion site covered with Biopatch and TSM. Report called to Nora at [facility]. Pt and family back to [facility] as requested to start treatment.
== END ==
PROVIDERS: PCP Nurse Practitioner Family; Visit Provider Internal Medicine
DX: Z45.2 Encounter for adjustment and management of vascular access device (principal)
CPT/HCPCS: 36573; 71045

== ENCOUNTER 2023-07-05 13:54 | Outpatient (CLI) | payer MEDICARE, SELFPAY ==
--- NOTE | 2023-07-05 14:30 | MR_ITS ---
WS: [id number] MRI HEAD WITH CONTRAST TECHNIQUE: Sagittal T1, T2 axial, T2 axial FLAIR, axial susceptibility weighted imaging, axial diffus ion weighted images, and coronal T2 images were obtained. Pre and post-T1 axial and post T1 coronal i mages. ADC and FSPGR images. CLINICAL INFORMATION: SMALL CELL LUNG CANCER COMPARISON: None. FINDINGS: No evidence of restricted diffusion to suggest acute ischemia. Ventricular system and basal cisterns are patent. Moderate small vessel changes with moderate parenchymal volume loss. Small vessel changes in the eliseo. Tiny chronic lacunar infarct RIGHT cerebellum. Normal vascular flow voids at the skull base. No extra-axial fluid collections. No evidence of mass or mass effect. Paranasal sinuses are wel l aerated. Normal posterior nasopharynx and parapharyngeal fat. Mild mucosal thickening RIGHT mastoid air cells. Disc osteophyte complex at C4-5 with indentation on the cervical cord and mild central canal stenosis . No hemosiderin on the susceptibly weighted images. Normal optic chiasm and pituitary infundibulum. Advanced symmetric atrophy temporal lobes and hippocampal formations. No abnormal gadolinium enhancement. No evidence of enhancing intracranial metastatic disease. Normal dural venous sinuses. IMPRESSION: 1. No evidence of enhancing intracranial metastatic disease. 2. No restricted diffusion to suggest acute ischemia. 3. Moderate small vessel changes with moderate parenchymal volume loss. Small vessel changes in the eliseo. 4. Moderate to advanced symmetric atrophy temporal lobes and hippocampal formations. 5. Mild central canal stenosis in the upper cervical spine at C4-5 due to disc osteophyte complex..
[2023-07-05] MEDS: gadobenate dimeglumine 20 mL vial IV (14:48)
== END 2023-07-05 13:55 | disposition home or self-care (01) ==
LOC: RAD 13:54
PROVIDERS: PCP Nurse Practitioner Family; Visit Provider Internal Medicine
DX: C34.90 Malignant neoplasm of unspecified part of unspecified bronchus or lung (principal); D64.9 Anemia, unspecified; I67.89 Other cerebrovascular disease; G31.89 Other specified degenerative diseases of nervous system
CPT/HCPCS: 70553; A9577

== ENCOUNTER 2023-07-10 09:57 | Emergency (ER) | payer MEDICARE, SELFPAY ==
[2023-07-10 09:58] VITALS: BP 136/48; PULSE 77; RESP 16; TEMP 36.4; O2SAT 96; BMI 18.3
--- NOTE | 2023-07-10 10:02 | XR_ITS ---
WS: [id number] Portable AP upright chest, 07/10/2023 Clinical Data: dyspnea/cough Comparison: Portable chest, 07/03/2023 Findings: There is blunting of both costophrenic angles, possibly from small effusions. The right hil um is prominent with atelectatic stranding extending laterally and inferiorly. There is an artificial cardiac valve. The aortic arch shows calcification. No pneumonia or pneumothorax is present. The pul monary vascularity is not remarkable. There is a right PICC line unchanged in position. Impression: 1. Right hilar prominence with atelectasis extending laterally and inferiorly, possibly from a nodule . 2. Blunting of both costophrenic angles possibly from pleural effusion. 3. Artificial cardiac valve and atherosclerosis.
--- NOTE | 2023-07-10 10:02 | CT_ITS ---
WS: [id number] CT HEAD TECHNIQUE: Noncontrast CT of the head obtained from the skullbase to the vertex. CLINICAL INFORMATION: sycnope COMPARISON: MRI 07/05/2023 DLP: 951.[address] scans at [facility] use at least one of these dose optimization techniques: automated e xposure control; mA and/or kV adjustment per patient size (includes targeted exams where dose is matc hed to clinical indication); or iterative reconstruction. FINDINGS: No evidence of intracranial hemorrhage or mass effect. Ventricular system and basal cisterns are herrera nt. Moderate small vessel changes with moderate parenchymal volume loss. No extra-axial fluid collect ions. No evidence of mass or mass effect. Normal atkins-white differentiation. Intracranial vascular ca lcification. Paranasal sinuses and mastoid air cells are well aerated. .Normal visualized soft tissues. IMPRESSION: 1. No evidence of intracranial hemorrhage or mass effect. 2. No acute intracranial findings.
--- NOTE | 2023-07-10 10:13 | ECG_ITS ---
[facility] Test Date: 2023-07-10 Pat Name: Angella Walls Department: Room: Gender: Female Research/Program Director: : 1940 Requested By: Isidro De La Torre Order Number: [id number] Pipe MD: Antwon Doherty M.D. Measurements Intervals [place] Rate: 71 P: 64 SD: 183 QRS: 24 QRSD: 81 T: 81 QT: 397 QTc: 432 Interpretive Statements SINUS RHYTHM WITH FREQUENT SUPRAVENTRICULAR PREMATURE COMPLEXES MODERATE ST DEPRESSION [0.05+ mV ST DEPRESSION] Compared to ECG 06/19/2023 08:16:33 ST (T wave) deviation now present Sinus bradycardia no longer present Myocardial infarct finding no longer present Electronically Signed On 07-10-2023 21:31:21 CDT by Antwon Doherty M.D. [id number]
--- NOTE | 2023-07-10 11:07 | W.ED.SYNCOPE ---
HPI - Syncope General: Chief Complaint: Syncope Stated Complaint: N/V Syncope Time Seen by Provider: 07/10/23 10:02 Source: patient Mode of arrival: ambulatory History of Present Illness: 83-year-old female presents emergency room after having syncopal episode while sitting on the toilet. She is sitting on the toilet she did not feel like she was straining too much she got lightheaded and dizzy and passed out for a bit. She is on chemotherapy she just finished a course for stage IV lung cancer last week. denies chest pain or abd pain. 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 Hyponatremia Acute respiratory failure with hypoxia Pleural effusion on right Mass of right lung Rib pain on right side Hypoxia Pharyngitis Lung cancer, lower lobe Lung cancer Chronic anticoagulation Atrial fibrillation Exertional dyspnea Aortic stenosis Fracture of distal end of left radius and ulna PVD (peripheral vascular disease) COPD (chronic obstructive pulmonary disease) Hx of cardiac murmur HTN (hypertension) Surgical History History of hernia repair History of hysterectomy Family History Mother CAD (coronary artery disease) Stroke Father CAD (coronary artery disease) Lung disease Brother Diabetes Social History Smoking and tobacco/nicotine status: former use of tobacco/nicotine Quit status (tobacco/nicotine): has quit using Year quit tobacco: quit 1985 Former quit date comment: 1 ppd x 30 years Alcohol intake: never Current gender identity: Female Physical Exam Const: COMMON NORMALS: no acute distress GENERAL APPEARANCE: cooperative and comfortable ORIENTATION/CONSCIOUSNESS: Yes awake, Yes oriented to person, Yes oriented to place and Yes oriented to time HENMT: COMMON NORMALS: normocephalic, atraumatic and hearing grossly normal bilaterally HEAD & SCALP: normocephalic and atraumatic Resp: COMMON NORMALS: normal respiratory effort, No retractions, No use of accessory muscles and clear to auscultation bilaterally AUSCULTATION: clear to auscultation bilaterally Cardio: COMMON NORMALS: regular rate, regular rhythm and No murmurs present (Cardio) RATE: regular rate RHYTHM: regular rhythm GI: COMMON NORMALS: Soft to palpation and No hepatosplenomegaly present AUSCULTATION: Yes normoactive bowel sounds PALPATION: Yes Soft to palpation, No Tenderness to palpation present (GI), No Guarding due to palpation present (GI) and Yes No hepatosplenomegaly present Extremity: COMMON NORMALS: normal to inspection, capillary refill normal, no clubbing, cyanosis or edema, no calf tenderness and no pedal edema Neuro: SENSORIUM/ORIENTATION: Yes oriented to person, Yes oriented to place and Yes oriented to time Skin: COMMON NORMALS: no rashes or lesions noted GENERAL SKIN EXAM: no rashes or lesions noted Course Vital Signs: Vital signs: Vital Signs Temperature 97.6 F 07/10/23 09:58 Pulse Rate 67 07/10/23 16:00 Respiratory Rate 16 07/10/23 16:00 Blood Pressure 94/48 07/10/23 16:00 Pulse Oximetry 94 07/10/23 16:00 Oxygen Delivery Me thod Room Air 07/10/23 09:58 MDM - Syncope Medical Decision Making Labs and imaging reviewed. CT does not show acute abnormality chest x-ray shows changes consistent with a diagnosis of lung cancer no large effusions or pneumonias. Patient is mildly anemic troponins did not show significant positive delta EKG did not show acute abnormalities patient is feeling better after fluids. Will discharge patient home she he was supposed to see oncology today encouraged her to call for rescheduled follow-up visit tomorrow. Avoid strenuous activities return if she has further problems Medical Records I reviewed the patient's medical records. Lab Data I reviewed the patient's lab results. 07/10/23 11:25 07/10/23 11:25 Laboratory Results WBC 4.35 10^3/uL (3.29-11.43) 07/10/23 11:25 RBC 3.38 10^6/uL (3.85-5.65) L 07/10/23 11:25 Hgb 9.90 g/dL (11.27-16.99) L 07/10/23 11:25 Hct 31.3 % (36-47) L 07/10/23 11:25 MCV 92.6 fl (85-98) 07/10/23 11:25 MCH 29.3 pg (27-33) 07/10/23 11:25 MCHC 31.6 g/dL (30-55) 07/10/23 11:25 RDW 14.7 % (12.1-15.1) 07/10/23 11:25 Plt Count 191 10^3/cmm (157-399) 07/10/23 11:25 MPV 8.7 fL (7.4-10.4) 07/10/23 11:25 Neut % (Auto) 79.7 % 07/10/23 11:25 Lymph % (Auto) 10.6 % 07/10/23 11:25 Davison % (Auto) 0.5 % 07/10/23 11:25 Eos % (Auto) 0.7 % 07/10/23 11:25 Baso % (Auto) 1.4 % 07/10/23 11:25 Neut # (Auto) 3.47 10^3/uL (1.8-7.7) 07/10/23 11:25 Lymph # (Auto) 0.5 10^3/uL (0.8-4.8) L 07/10/23 11:25 Davison # (Auto) 0.0 10^3/uL (0.2-0.9) L 07/10/23 11:25 Eos # (Auto) 0.0 10^3/uL (0.0-0.8) 07/10/23 11:25 Baso # (Auto) 0.1 10^3/uL (0.0-0.1) 07/10/23 11:25 Nucleated RBC % (auto) 0 % 07/10/23 11:25 Nucleated RBCs # 0.0 /100WBC 07/10/23 11:25 Sodium 131 mmol/L (136-145) L 07/10/23 11:25 Potassium 4.1 mmol/L (3.5-5.1) 07/10/23 11:25 Chloride 98 mmol/L (98-107) 07/10/23 11:25 Carbon Dioxide 20 mmol/L (22-29) L 07/10/23 11:25 Anion Gap 17.1 (5-19) 07/10/23 11:25 BUN 20 mg/dL (8-23) 07/10/23 11:25 Creatinine 0.7 mg/dL (0.5-0.9) 07/10/23 11:25 GFR Calculation Not Reportable 07/10/23 11:25 Glucose 104 mg/dL (65-115) 07/10/23 11:25 Calculated Osmolality 275 mOsm/kg (285-295) L 07/10/23 11:25 Calcium 8.4 mg/dL (8.5-10.5) L 07/10/23 11:25 Total Bilirubin 0.5 mg/dL (0.15-1.2) 07/10/23 11:25 AST 27 U/L (0-32) 07/10/23 11:25 ALT 23 U/L (0-33) 07/10/23 11:25 Alkaline Phosphatase 104 U/L (35-105) 07/10/23 11:25 Troponin T Baseline 31 ng/L (0-10) H 07/10/23 11:25 Troponin T 120 Minute 33.52 ng/L (0-10) H 07/10/23 13:12 Delta Troponin T 2.52 ABS# (0-10) 07/10/23 13:12 Total Protein 6.1 g/dL (6.6-8.7) L 07/10/23 11:25 Albumin 3.7 g/dL (3.5-5.2) 07/10/23 11:25 Globulin 2.4 g/dL (1.3-4.6) 07/10/23 11:25 Urine Color Yellow (Yellow) 07/10/23 12:48 Urine Appearance Sl hazy (CLEAR) A 07/10/23 12:48 Urine pH 5 (5-7) 07/10/23 12:48 Ur Specific [place] 1.010 (1.005-1.030) 07/10/23 12:48 Urine Protein Trace (Negative) 07/10/23 12:48 Urine Glucose (UA) Norm (Normal) 07/10/23 12:48 Urine Ketones 1+ (Negative) H 07/10/23 12:48 Urine Blood 2+ (Negative) H 07/10/23 12:48 Urine Nitrate Negative (Negative) 07/10/23 12:48 Urine Bilirubin Neg (Negative) 07/10/23 12:48 Urine Urobilinogen 1 mg/dL (Negative) H 07/10/23 12:48 Ur Leukocyte Esterase 2+ (Negative) H 07/10/23 12:48 Urine RBC 0-4 /hpf (0-2) H 07/10/23 12:48 Urine WBC 10-15 /hpf (0-5) H 07/10/23 12:48 Ur Squamous Epith Cells 10-15 /hpf (0-5) H 07/10/23 12:48 Ur Transition Epith Cell 0-4 /hpf 07/10/23 12:48 Amorphous Sediment 2+ /hpf 07/10/23 12:48 Urine Bacteria 3+ /hpf (NONE) H 07/10/23 12:48 Urine Mucus 1+ /hpf 07/10/23 12:48 All radiology interpretation(s) finalized by discharge Discharge Plan Discharge Patient Disposition: Home Clinical Impression: Vasovagal syncope Lung cancer Qualifiers: Laterality: unspecified laterality Lung location: unspecified part of lung Qualified Code(s): C34.90 - Malignant neoplasm of unspecified part of unspecified bronchus or lung Condition: Stable Prescriptions: No Action (DME) Fast Form Cock Up Splint See Rx Instructions .ROUTE .MEDSUPPLY Qty: 1 0RF Rx Instructions: As directed cholecalciferol (vitamin D3) 10 mcg (400 unit) capsule 10 mcg PO QAM ezetimibe 10 mg tablet 10 mg PO QPM magnesium oxide 400 mg magnesium tablet 400 mg PO QAM atorvastatin 40 mg tablet 40 mg PO QPM clopidogrel [Plavix] 75 mg tablet 75 mg PO QAM metoprolol tartrate 25 mg tablet 25 mg PO BID lorazepam 1 mg tablet 0.5 - 1 mg PO Q6H PRN (Reason: Severe Nausea) Qty: 30 3RF (DME) wheelchair See Rx Instructions .Route .MEDSUPPLY Qty: 1 0RF Rx Instructions: As directed (DME) Portable oxygen concentrator and suplies See Rx Instructions .Route .MEDSUPPLY Qty: 1 0RF Rx Instructions: As directed albuterol sulfate [ProAir HFA] 90 mcg/actuation HFA aerosol inhaler 2 puff inhalation Q4H PRN (Reason: Shortness Of Breath) lisinopril 20 mg tablet 20 mg PO DAILY PRN (Reason: Hypertension) Rx Instructions: hold if sbp is under 130 Compazine 10 mg tablet 10 mg PO Q4H PRN (Reason: Mild Nausea) Qty: 30 3RF albuterol sulfate 0.63 mg/3 mL solution for nebulization 0.63 mg inhalation Q4H PRN (Reason: Shortness Of Breath Or Wheezing) zinc acetate 50 mg (zinc) Capsule 50 mg PO QAM levothyroxine 50 mcg tablet 50 mcg PO BEDTIME CoQ-10 100 mg Capsule 100 mg PO QAM pantoprazole 40 mg tablet,delayed release (DR/EC) 40 mg PO QPM fluticasone propion-salmeterol 500-50 mcg/dose blister with device 1 inh inhalation Q12H Spiriva Respimat 2.5 mcg/actuation mist 2 puff inhalation QAM Discharge Orders: Discharge ED (Routine); Ordered 07/10/23 Ordered By: Isidro Venegas Referrals: Gordo Crespo MD [Primary Care Provider] - Discharge Diet: Usual diet Discharge Activity: Increase activity as tolerated Patient Instructions: Opioid Safety, Pain Management Activity Restrictions/Additional Instructions: Thank you for choosing [facility] for your healthcare needs today. Please realize this is an emergency room and that we are providing you with a medical screening exam and this may not be complete and all inclusive of all the testing and or work up that you may need to determine your ailment or severity of your illness. It is very important that you follow up as instructed or that you return to the Emergency Department should you have concerns or if your condition changes or worsens in any way. Reschedule follow-up visit with the oncology clinic tomorrow return if you have further problems. Coding Level of Care Code ED Glass Production Machine Operator for Danielle Colbert
[2023-07-10 11:15] VITALS: BP 134/91; PULSE 69; RESP 16; O2SAT 97
[2023-07-10 11:41] LABS: Basophils # 0.1 10^3/uL (0.0-0.1); Basophils % 1.4 %; Eosinophils % 0.7 %; Hematocrit 31.3 % (36-47); Lymphocytes # 0.5 10^3/uL (0.8-4.8); Lymphocytes % 10.6 %; Mean Corpuscular HGB Conc 31.6 g/dL (30-55); Mean Corpuscular Hemoglobin 29.3 pg (27-33); Mean Corpuscular Volume 92.6 fl (85-98); Mean Platelet Volume 8.7 fL (7.4-10.4); Monocytes % 0.5 %; Neutrophils # 3.47 10^3/uL (1.8-7.7); Neutrophils % 79.7 %; Nucleated Red Blood Cells % 0 %; Platelet Count 191 10^3/cmm (157-399); Red Blood Count 3.38 10^6/uL (3.85-5.65); Red Cell Distribution Width 14.7 % (12.1-15.1); White Blood Count 4.35 10^3/uL (3.29-11.43)
[2023-07-10 11:57] LABS: Troponin(5th) Baseline 31 ng/L (0-10)
--- NOTE | 2023-07-10 12:02 | ECG_ITS ---
[facility] Test Date: 2023-07-10 Pat Name: Angella Walls Department: Room: Gender: Female Vegetable Scullion: : 1940 Requested By: Isidro De La Torre Order Number: [id number] Pipe MD: Antwon Doherty M.D. Measurements Intervals [place] Rate: 67 P: 85 OK: 192 QRS: -32 QRSD: 90 T: 73 QT: 416 QTc: 441 Interpretive Statements SINUS RHYTHM LEFT AXIS DEVIATION [QRS AXIS < -30] PROBABLE INFERIOR MYOCARDIAL INFARCTION , OF INDETERMINATE AGE [35 ms Q WAVE IN II/aVF] Compared to ECG 07/10/2023 10:13:17 Left-axis deviation now present Myocardial infarct finding now present ST (T wave) deviation no longer present Electronically Signed On 07-10-2023 21:38:41 CDT by Antwon Doherty M.D. [id number]
[2023-07-10 12:12] LABS: Alanine Aminotransferase 23 U/L (0-33); Albumin Level 3.7 g/dL (3.5-5.2); Alkaline Phosphatase 104 U/L (35-105); Anion Gap 17.1 (5-19); Aspartate Amino Transferase 27 U/L (0-32); Blood Urea Nitrogen 20 mg/dL (8-23); Calcium 8.4 mg/dL (8.5-10.5); Carbon Dioxide 20 mmol/L (22-29); Chloride 98 mmol/L (98-107); Globulin 2.4 g/dL (1.3-4.6); Glucose 104 mg/dL (65-115); Osmolality Calculated 275 mOsm/kg (285-295); Potassium 4.1 mmol/L (3.5-5.1); Sodium 131 mmol/L (136-145); Total Bilirubin 0.5 mg/dL (0.15-1.2); Total Protein 6.1 g/dL (6.6-8.7)
[2023-07-10 12:51] LABS: Slide Review Slide Review Perform
[2023-07-10 13:00] VITALS: BP 98/59; PULSE 66; RESP 20; O2SAT 95
[2023-07-10 13:06] LABS: Add Urine Microscopic? YES; Bilirubin Urine Neg (Negative); Blood Urine 2+ (Negative); Glucose Urine UA Norm (Normal); Ketones Urine 1+ (Negative); Leukocyte Esterase Urine 2+ (Negative); Nitrate Urine Negative (Negative); Protein Urine Trace (Negative); Urine Appearance SL Hazy (CLEAR); Urine Color Yellow (Yellow); Urobilinogen Urine 1 mg/dL (Negative); pH Urine 5 (5-7)
[2023-07-10 13:14] LABS: Bacteria Urine 3+ /hpf; Mucus Urine 1+ /hpf; RBC Urine 0-4 /hpf (0-2); Transitional Epi Cells Urine 0-4 /hpf
[2023-07-10 13:15] LABS: Add Urine Culture? Yes; Amorphous Sediment Urine 2+ /hpf
[2023-07-10 15:16] LABS: Troponin 5 2HR 33.52 ng/L (0-10); Troponin 5 2HR Delta 2.52 ABS# (0-10)
[2023-07-10 15:40] VITALS: BP 110/51; PULSE 67; RESP 16; O2SAT 96
[2023-07-10 16:00] VITALS: BP 94/48; PULSE 67; RESP 16; O2SAT 94
[2023-07-10 16:40] VITALS: BP 110/49; PULSE 71; RESP 16; O2SAT 94
== END 2023-07-10 17:00 | disposition home or self-care (01) ==
PROVIDERS: Emergency Provider Family Medicine; PCP Internal Medicine Medical Oncology
DX: R55 Syncope and collapse (principal); C34.90 Malignant neoplasm of unspecified part of unspecified bronchus or lung; Z79.02 Long term (current) use of antithrombotics/antiplatelets; Z85.118 Personal history of other malignant neoplasm of bronchus and lung; J44.9 Chronic obstructive pulmonary disease, unspecified; I10 Essential (primary) hypertension; Z87.891 Personal history of nicotine dependence
CPT/HCPCS: 36415; 70450; 71045; 80053; 81001; 84484; 85025; 87086; 93005; 99285

== ENCOUNTER → 2023-07-12 14:02 | Outpatient (BNVA) | payer MEDICARE, SELFPAY | PROVIDERS: PCP Internal Medicine Medical Oncology; Visit Provider Surgery | DX: C34.31 Malignant neoplasm of lower lobe, right bronchus or lung (principal) | CPT/HCPCS: 99212 ==

== ENCOUNTER 2023-07-19 10:00 | Oncology outpatient (recurring) (ONCR) | payer MEDICARE, SELFPAY ==
[2023-07-04] MEDS: sodium chloride 0.9% 250 ML 75 ML IV (08:12)
[2023-07-04] MEDS: ondansetron 2 mg/ML SDV 2 mL 8 MG IVP (08:12)
[2023-07-04] MEDS: [UNRECOGNIZED DRUG - REMARK] 507.5 MG IV (08:25)
[2023-07-04 08:26] LABS: Urine Random Sodium 67 mmol/L
[2023-07-04 08:30] VITALS: BP 152/54; PULSE 56; TEMP 36.4; O2SAT 99
[2023-07-04 09:38] VITALS: BP 160/56; PULSE 59; TEMP 36; O2SAT 97
[2023-07-05] MEDS: sodium chloride 0.9% 250 ML 75 ML IV (10:22)
[2023-07-05] MEDS: palonosetron 0.25 mg/5 mL SDV IVP (10:23)
[2023-07-05 10:28] VITALS: BP 145/59; PULSE 59; RESP 18; TEMP 36.3; O2SAT 96
[2023-07-05] MEDS: [UNRECOGNIZED DRUG - REMARK] 507.5 MG IV (10:33)
[2023-07-05 11:46] VITALS: BP 149/56; PULSE 57; RESP 16; O2SAT 96
[2023-07-05 14:55] LABS: Osmolality Urine 461 mOsm/kg (50-1200)
[2023-07-17 11:16] LABS: Eosinophils % 2.2 %; Hematocrit 24.7 % (36-47); Lymphocytes # 0.7 10^3/uL (0.8-4.8); Lymphocytes % 69.9 %; Mean Corpuscular HGB Conc 33.2 g/dL (30-55); Mean Corpuscular Hemoglobin 29.7 pg (27-33); Mean Corpuscular Volume 89.5 fl (85-98); Mean Platelet Volume 9.6 fL (7.4-10.4); Monocytes # 0.2 10^3/uL (0.2-0.9); Monocytes % 23.7 %; Neutrophils % 4.2 %; Nucleated Red Blood Cells % 0 %; Red Blood Count 2.76 10^6/uL (3.85-5.65); Red Cell Distribution Width 13.6 % (12.1-15.1); White Blood Count 0.93 10^3/uL (3.29-11.43)
[2023-07-17 11:18] LABS: Alanine Aminotransferase 34 U/L (0-33); Albumin Level 3.4 g/dL (3.5-5.2); Alkaline Phosphatase 97 U/L (35-105); Aspartate Amino Transferase 25 U/L (0-32); Blood Urea Nitrogen 15 mg/dL (8-23); Calcium 8.5 mg/dL (8.5-10.5); Carbon Dioxide 20 mmol/L (22-29); Chloride 95 mmol/L (98-107); Creatinine Clr Calc Pharmacy 46.0435; Globulin 3.2 g/dL (1.3-4.6); Glucose 119 mg/dL (65-115); Osmolality Calculated 264 mOsm/kg (285-295); Sodium 126 mmol/L (136-145); Total Bilirubin 0.3 mg/dL (0.15-1.2); Total Protein 6.6 g/dL (6.6-8.7)
[2023-07-17 11:23] LABS: Neutrophils # 0.04 10^3/uL (1.8-7.7); Platelet Count 22 10^3/cmm (157-399)
[2023-07-17 11:29] LABS: Anion Gap 15.4 (5-19); Potassium 4.4 mmol/L (3.5-5.1)
[2023-07-17 11:30] LABS: Slide Review Slide Review Perform
[2023-07-17] MEDS: filgrastim-sndz 300 mcg/0.5 mL Syringe SUBCUT (14:38)
[2023-07-18 13:59] VITALS: BP 135/50; PULSE 72; RESP 16; O2SAT 97
[2023-07-18] MEDS: filgrastim-sndz 300 mcg/0.5 mL Syringe SUBCUT (14:02)
[2023-07-19 10:43] LABS: Basophils # 0.1 10^3/uL (0.0-0.1); Basophils % 0.6 %; Eosinophils % 0.2 %; Hematocrit 24.6 % (36-47); Lymphocytes # 1.1 10^3/uL (0.8-4.8); Lymphocytes % 12.9 %; Mean Corpuscular HGB Conc 33.3 g/dL (30-55); Mean Corpuscular Hemoglobin 29.6 pg (27-33); Mean Corpuscular Volume 88.8 fl (85-98); Mean Platelet Volume 10.2 fL (7.4-10.4); Monocytes % 11.6 %; Neutrophils # 5.33 10^3/uL (1.8-7.7); Neutrophils % 63.4 %; Nucleated Red Blood Cells % 0 %; Platelet Count 51 10^3/cmm (157-399); Red Blood Count 2.77 10^6/uL (3.85-5.65); Red Cell Distribution Width 13.7 % (12.1-15.1); White Blood Count 8.42 10^3/uL (3.29-11.43)
[2023-07-19 11:41] LABS: Slide Review Slide Review Perform
== END 2023-07-22 23:59 | disposition home or self-care (01) ==
PROVIDERS: Nurse Practitioner Family; Absent Provider Radiology Radiation Oncology; PCP Nurse Practitioner Family; Visit Provider Internal Medicine Medical Oncology
DX: Z53.9 Procedure and treatment not carried out, unspecified reason (principal); C34.31 Malignant neoplasm of lower lobe, right bronchus or lung
CPT/HCPCS: 36592; 80053; 83935; 84300; 85025; 96372; 96375; 96413; 99204; 99214; J1642; J2405; J2469; J7030; J7050; J9181; Q5101

== ENCOUNTER 2023-08-07 13:15 | Oncology outpatient (recurring) (ONCR) | payer MEDICARE, SELFPAY ==
[2023-07-24 11:19] LABS: Hematocrit 23.5 % (36-47); Mean Corpuscular Hemoglobin 30.4 pg (27-33); Mean Corpuscular Volume 89.4 fl (85-98); Mean Platelet Volume 8.6 fL (7.4-10.4); Platelet Count 290 10^3/cmm (157-399); Red Blood Count 2.63 10^6/uL (3.85-5.65); Red Cell Distribution Width 14.2 % (12.1-15.1); White Blood Count 10.47 10^3/uL (3.29-11.43)
[2023-07-24 11:35] LABS: Alanine Aminotransferase 31 U/L (0-33); Albumin Level 3.3 g/dL (3.5-5.2); Alkaline Phosphatase 110 U/L (35-105); Aspartate Amino Transferase 30 U/L (0-32); Blood Urea Nitrogen 13 mg/dL (8-23); Calcium 8.5 mg/dL (8.5-10.5); Carbon Dioxide 22 mmol/L (22-29); Chloride 99 mmol/L (98-107); Globulin 3.2 g/dL (1.3-4.6); Glucose 76 mg/dL (65-115); Osmolality Calculated 271 mOsm/kg (285-295); Sodium 131 mmol/L (136-145); Total Bilirubin 0.2 mg/dL (0.15-1.2); Total Protein 6.5 g/dL (6.6-8.7)
[2023-07-24 11:36] LABS: Anion Gap 14.8 (5-19); Potassium 4.8 mmol/L (3.5-5.1)
[2023-07-24 11:51] LABS: Slide Review Slide Review Perform
[2023-07-24 12:02] LABS: Absolute Segmented Neutrophil 6.8 10/cmm (1.6-7.1); Band Neutrophils Absolute 0.4 10^3/cmm (0.0-1.2); Eosinophils 0 %; Lymphocytes 18 %; Monocytes Absolute 0.7 10^3/cmm (0.1-0.6); Segmented Neutrophils 65 %; Total Cells Counted 100 (0-100)
[2023-07-24 12:03] LABS: Absolute Neutrophil 7.2 10^3/cmm (1.4-6.5); Platelet Estimate Normal (Normal); Poikilocytosis 1+
[2023-07-24 12:08] LABS: Burr Cells Trace
[2023-07-24] MEDS: famotidine 20 mg/2 mL INJ IVP (13:40)
[2023-07-24] MEDS: acetaminophen 325 mg Tablet 650 MG PO (13:40)
[2023-07-24] MEDS: sodium chloride 0.9% 250 ML 75 ML IV (13:40)
[2023-07-24] MEDS: diphenhydrAMINE 50 mg/mL SDV 1mL 25 MG IVP (13:44)
[2023-07-24] MEDS: fosaprepitant 150 MG in sodium chloride 0.9% 150 ML 300 MG IV (14:03)
[2023-07-24] MEDS: durvalumab 1,500 MG in sodium chloride 0.9% 250 ML 280 MG IV (14:40)
[2023-07-24] MEDS: SODIUM CHLORIDE 0.9% IV (15:49)
[2023-07-24] MEDS: CARBOPLATIN IV (15:49)
[2023-07-24] MEDS: [UNRECOGNIZED DRUG - REMARK] 506 MG IV (16:46)
[2023-07-24 17:53] VITALS: BP 147/61; PULSE 72; RESP 16; TEMP 36.7; O2SAT 98
[2023-07-25] VITALS (9 sets, daily range): BP systolic 149–173; BP diastolic 61–82; PULSE 55–74; RESP 18; TEMP 36.1–36.6; O2SAT 96–100
[2023-07-25] MEDS: acetaminophen 325 mg Tablet 650 MG PO (08:10)
[2023-07-25] MEDS: sodium chloride 0.9% (100 ml) 100 ML 75 ML (08:11)
[2023-07-25] MEDS: diphenhydrAMINE 25 mg Capsule PO (08:12)
[2023-07-25] MEDS: sodium chloride 0.9% 250 mL Bag IV (10:44)
[2023-07-25] MEDS: ondansetron 2 mg/ML SDV 2 mL 8 MG IVP (10:45)
[2023-07-25] MEDS: [UNRECOGNIZED DRUG - REMARK] 506 MG IV (10:54)
[2023-07-26] MEDS: sodium chloride 0.9% 250 ML 75 ML IV (09:27)
[2023-07-26] MEDS: palonosetron 0.25 mg/5 mL SDV IVP (09:29)
[2023-07-26 09:37] VITALS: BP 148/71; PULSE 62; RESP 16; TEMP 36.4; O2SAT 95
[2023-07-26] MEDS: [UNRECOGNIZED DRUG - REMARK] 506 MG IV (09:56)
[2023-07-26 11:30] VITALS: BP 155/62; PULSE 66; RESP 17; TEMP 36.1; O2SAT 97
[2023-07-26] MEDS: pegfilgrastim 6 mg/0.6 mL Kit (onpro) SUBCUT (11:33)
[2023-07-31 14:28] LABS: Basophils # 0.1 10^3/uL (0.0-0.1); Basophils % 3.3 %; Hematocrit 26.3 % (36-47); Lymphocytes # 0.5 10^3/uL (0.8-4.8); Lymphocytes % 28.6 %; Mean Corpuscular HGB Conc 32.7 g/dL (30-55); Mean Corpuscular Hemoglobin 30.2 pg (27-33); Mean Corpuscular Volume 92.3 fl (85-98); Mean Platelet Volume 8.7 fL (7.4-10.4); Monocytes # 0.1 10^3/uL (0.2-0.9); Monocytes % 7.1 %; Neutrophils # 1.08 10^3/uL (1.8-7.7); Neutrophils % 59.4 %; Nucleated Red Blood Cells % 0 %; Platelet Count 220 10^3/cmm (157-399); Red Blood Count 2.85 10^6/uL (3.85-5.65); Red Cell Distribution Width 14.3 % (12.1-15.1); White Blood Count 1.82 10^3/uL (3.29-11.43)
[2023-07-31 14:50] LABS: Alanine Aminotransferase 19 U/L (0-33); Albumin Level 3.2 g/dL (3.5-5.2); Alkaline Phosphatase 119 U/L (35-105); Anion Gap 14.2 (5-19); Aspartate Amino Transferase 21 U/L (0-32); Blood Urea Nitrogen 15 mg/dL (8-23); Calcium 8.2 mg/dL (8.5-10.5); Carbon Dioxide 23 mmol/L (22-29); Chloride 95 mmol/L (98-107); Creatinine Clr Calc Pharmacy 46.0435; Globulin 3.1 g/dL (1.3-4.6); Glucose 96 mg/dL (65-115); Osmolality Calculated 267 mOsm/kg (285-295); Potassium 4.2 mmol/L (3.5-5.1); Sodium 128 mmol/L (136-145); Total Bilirubin 0.6 mg/dL (0.15-1.2); Total Protein 6.3 g/dL (6.6-8.7)
[2023-07-31 15:01] LABS: Slide Review Slide Review Perform
[2023-08-01 22:35] LABS: TSH Receptor Binding Antibody 1.02 IU/L (< OR = 2.00)
[2023-08-07 13:45] LABS: Hematocrit 24.7 % (36-47); Mean Corpuscular HGB Conc 33.2 g/dL (30-55); Mean Corpuscular Hemoglobin 30.4 pg (27-33); Mean Corpuscular Volume 91.5 fl (85-98); Mean Platelet Volume 9.9 fL (7.4-10.4); Platelet Count 41 10^3/cmm (157-399); Red Cell Distribution Width 13.9 % (12.1-15.1)
[2023-08-07 14:05] LABS: Alanine Aminotransferase 28 U/L (0-33); Albumin Level 3.4 g/dL (3.5-5.2); Alkaline Phosphatase 149 U/L (35-105); Anion Gap 15.7 (5-19); Aspartate Amino Transferase 25 U/L (0-32); Blood Urea Nitrogen 10 mg/dL (8-23); Calcium 8.3 mg/dL (8.5-10.5); Carbon Dioxide 22 mmol/L (22-29); Chloride 100 mmol/L (98-107); Creatinine Clr Calc Pharmacy 46.0435; Globulin 3.1 g/dL (1.3-4.6); Glucose 162 mg/dL (65-115); Osmolality Calculated 281 mOsm/kg (285-295); Potassium 3.7 mmol/L (3.5-5.1); Sodium 134 mmol/L (136-145); Total Bilirubin 0.3 mg/dL (0.15-1.2); Total Protein 6.5 g/dL (6.6-8.7)
[2023-08-07 14:16] LABS: Slide Review Slide Review Perform; White Blood Count 40.95 10^3/uL (3.29-11.43)
[2023-08-07 14:17] LABS: Absolute Neutrophil 27.4 10^3/cmm (1.4-6.5); Absolute Segmented Neutrophil 26.2 10/cmm (1.6-7.1); Band Neutrophils Absolute 1.2 10^3/cmm (0.0-1.2); Eosinophils 0 %; Lymphocytes 11 %; Lymphocytes Absolute 4.5 10^3/cmm (1.2-3.4); Monocytes Absolute 2.5 10^3/cmm (0.1-0.6); Platelet Estimate Decreased (Normal); Segmented Neutrophils 64 %; Total Cells Counted 100 (0-100)
== END 2023-08-07 23:59 | disposition home or self-care (01) ==
PROVIDERS: Nurse Practitioner Family; Absent Provider Radiology Radiation Oncology; PCP Internal Medicine Medical Oncology; Visit Provider Internal Medicine Medical Oncology
DX: C34.90 Malignant neoplasm of unspecified part of unspecified bronchus or lung; Z53.9 Procedure and treatment not carried out, unspecified reason
CPT/HCPCS: 36430; 36592; 80053; 83516; 85007; 85025; 86850; 86900; 86920; 96367; 96375; 96377; 96413; 96417; 99214; A4222; J1100; J1200; J1453; J1642; J2405; J2469; J2506; J3490; J7030; J7040; J7050; J9045; J9173; J9181; P9040

== ENCOUNTER 2023-08-20 11:58 | Emergency (ER) | payer MEDICARE, SELFPAY ==
[2023-08-20] VITALS (46 sets, daily range): BP systolic 103–138; BP diastolic 30–56; PULSE 72–130; RESP 13–37; TEMP 37; O2SAT 84–99
--- NOTE | 2023-08-20 12:15 | CTR_ITS ---
PROCEDURE INFORMATION: Exam: CT Abdomen And Pelvis With Contrast Exam date and time: 08/20/2023 1:03 PM Age: 83 years old Clinical indication: Abdominal pain; Prior surgery; Surgery date: 6+ months; Surgery type: Hernia, gb, cardiac stents; Patient HX: HX of lung cancer; Additional info: Abs pain TECHNIQUE: Imaging protocol: Computed tomography of the abdomen and pelvis with contrast. Radiation optimization: All CT scans at this facility use at least one of these dose optimization techniques: automated exposure control; mA and/or kV adjustment per patient size (includes targeted exams where dose is matched to clinical indication); or iterative reconstruction. Contrast material: OMNI 350; Contrast volume: 80 ml; Contrast route: INTRAVENOUS (IV); COMPARISON: CT chest abdpel w/*[id number] 07/02/2023 3:54 PM RADIATION DOSE METRICS: Total DLP (mGy-cm): 322.49 FINDINGS: Pleural spaces: Small bilateral pleural effusions. Liver: Normal appearance of the liver. Gallbladder and bile ducts: Mild intrahepatic biliary ductal dilation, likely secondary to reservoir effect. Pancreas: No ductal dilation. Spleen: Unremarkable. Adrenal glands: Unremarkable. Kidneys and ureters: Scattered low density foci in the kidneys, too small to accurately characterize but statistically favored benign. No hydronephrosis. Stomach and bowel: Wall thickening of the transverse, descending, and sigmoid colon. No obstruction. Small bowel is unremarkable. Appendix: Normal appendix. Intraperitoneal space: No free air. No significant fluid collection. Vasculature: Severe atherosclerotic calcifications. Severe stenosis of the left common iliac artery, unchanged. Lymph nodes: No enlarged lymph nodes. Urinary bladder: Unremarkable as visualized. Reproductive: Unremarkable as visualized. Bones/joints: Status post ORIF of the left hip. Moderate degenerative changes of the spine. Soft tissues: Unremarkable. CT/CT abdomen pelvis w con* [id number] IMPRESSION: Wall thickening of the transverse, descending, and sigmoid colon, concerning for nonspecific colitis (infectious, inflammatory, or ischemic in etiology).
--- NOTE | 2023-08-20 12:15 | W.ED.ABDPA2 ---
HPI - Abdominal Pain General: Chief Complaint: Abdominal Pain Stated Complaint: Abd pain Time Seen by Provider: 08/20/23 11:59 Source: patient Mode of arrival: ambulatory Limitations: no limitations History of Present Illness: 83-year-old female has a history of small cell cancer she just finished a round of chemo states that she been having abdominal pain that is been severe in nature along with vomiting since last night. States she had multiple episodes of vomiting states pain is diffuse in nature rates an 8 out of 10 worsened today. Denies any fevers PFSH ED PFSH: Medical History Acute respiratory failure with hypoxia Aortic stenosis Asthma-COPD overlap syndrome Atrial fibrillation Chronic anticoagulation COPD (chronic obstructive pulmonary disease) Exertional dyspnea Fracture of distal end of left radius and ulna History of transcatheter aortic valve replacement (TAVR) (2022) HTN (hypertension) Hyponatremia Hypoxia Pharyngitis Pleural effusion on right PVD (peripheral vascular disease) Small cell lung carcinoma Surgical History History of coronary artery stent placement History of hernia repair (2021) bilateral inguinal hernia repair History of hysterectomy History of radiofrequency ablation procedure for cardiac arrhythmia Hx of resection of small bowel (2016) S/P ORIF (open reduction internal fixation) fracture (2022) Left hip fracture Family History Mother CAD (coronary artery disease) Stroke Father CAD (coronary artery disease) Lung disease Brother Diabetes Social History Smoking and tobacco/nicotine status: former use of tobacco/nicotine Quit status (tobacco/nicotine): has quit using Year quit tobacco: quit 1985 Former quit date comment: 1 ppd x 30 years Alcohol intake: never Current gender identity: Female Physical Exam Const: COMMON NORMALS: no acute distress, patient oriented x3 and healthy appearing HENMT: COMMON NORMALS: normocephalic and atraumatic HEAD & SCALP: normocephalic and atraumatic Neck/C-Spine: COMMON NORMALS: full ROM and supple Chest: COMMONS NORMALS: normal inspection of the chest Resp: COMMON NORMALS: normal respiratory effort Cardio: COMMON NORMALS: regular rate, regular rhythm and No murmurs present (Cardio) RATE: regular rate RHYTHM: regular rhythm GI: COMMON NORMALS: Normal to inspection, nondistended, normoactive bowel sounds present, Soft to palpation and no masses PALPATION: Yes Soft to palpation OTHER: diffuse tenderness Extremity: COMMON NORMALS: normal to inspection and full ROM Neuro: COMMON NORMALS: patient oriented x3, moves all extremities and no focal motor deficits Psych: COMMON NORMALS: mental status grossly normal, Normal thought process present and cooperative THOUGHT PROCESS: Normal thought process present Skin: COMMON NORMALS: no rashes or lesions noted and no wounds GENERAL SKIN EXAM: no rashes or lesions noted Course Vital Signs: Vital signs: Vital Signs Temperature 98.6 F 08/20/23 12:05 Pulse Rate 80 08/20/23 14:55 Respiratory Rate 22 H 08/20/23 14:55 Blood Pressure 125/51 08/20/23 14:55 Pulse Oximetry 94 08/20/23 14:55 Oxygen Delivery Me thod Room Air 08/20/23 13:50 MDM - Abdominal Pain Medical Decision Making Patient presents here with abdominal pain she is found to have colitis she is no signs of ischemic bowel her pain is much improved here we will place her on Cipro Flagyl along with pain medicine she is return if worsening she understands agrees to plan. Medical Records I reviewed the patient's medical records. Lab Data I reviewed the patient's lab results. 08/20/23 12:19 08/20/23 12:19 Labs/Radiology: Radiology Impressions Abdomen/Pelvis CT 08/20/23 12:15 IMPRESSION: Wall thickening of the transverse, descending, and sigmoid colon, concerning for nonspecific colitis (infectious, inflammatory, or ischemic in etiology). Laboratory Results WBC 22.69 10^3/uL (3.29-11.43) H 08/20/23 12:19 RBC 3.05 10^6/uL (3.85-5.65) L 08/20/23 12:19 Hgb 9.10 g/dL (11.27-16.99) L 08/20/23 12:19 Hct 27.9 % (36-47) L 08/20/23 12:19 MCV 91.5 fl (85-98) 08/20/23 12:19 MCH 29.8 pg (27-33) 08/20/23 12:19 MCHC 32.6 g/dL (30-55) 08/20/23 12:19 RDW 15.2 % (12.1-15.1) H 08/20/23 12:19 Plt Count 303 10^3/cmm (157-399) 08/20/23 12:19 MPV 8.7 fL (7.4-10.4) 08/20/23 12:19 Lymph % (Auto) Not Reportable 08/20/23 12:19 [place] % (Auto) Not Reportable 08/20/23 12:19 Lymph # (Auto) Not Reportable 08/20/23 12:19 [place] # (Auto) Not Reportable 08/20/23 12:19 Total Counted 100 (0-100) 08/20/23 12:19 Atypical Lymphs % 0.0 % (0-5) 08/20/23 12:19 Absolute Neutrophils 21.8 10^3/cmm (1.4-6.5) H 08/20/23 12:19 Segmented Neutrophils 96 % 08/20/23 12:19 Abs Segm Neuts (Man) 21.8 10/cmm (1.6-7.1) H 08/20/23 12:19 Band Neutrophils 0.0 % 08/20/23 12:19 Abs Band Neuts (Man) 0.0 10^3/cmm (0.0-1.2) 08/20/23 12:19 Absolute Lymphocytes 0.5 10^3/cmm (1.2-3.4) L 08/20/23 12:19 Lymphocytes (Manual) 2 % 08/20/23 12:19 Monocytes (Manual) 1.0 % 08/20/23 12:19 Absolute Monocytes 0.2 10^3/cmm (0.1-0.6) 08/20/23 12:19 Eosinophils (Manual) 1 % 08/20/23 12:19 Absolute Eosinophils 0.2 10^3/cmm (0.0-0.7) 08/20/23 12:19 Basophils (Manual) 0.0 % 08/20/23 12:19 Absolute Basophils 0.0 10^3/cmm (0.0-0.2) 08/20/23 12:19 Hypersegmented Polys 3+ 08/20/23 12:19 Platelet Estimate Normal (Normal) 08/20/23 12:19 PT 14.60 SECONDS (12.1-14.9) 08/20/23 12:19 INR 1.10 (0.8-1.2) 08/20/23 12:19 Sodium 133 mmol/L (136-145) L 08/20/23 12:19 Potassium 4.5 mmol/L (3.5-5.1) 08/20/23 12:19 Chloride 100 mmol/L (98-107) 08/20/23 12:19 Carbon Dioxide 21 mmol/L (22-29) L 08/20/23 12:19 Anion Gap 16.5 (5-19) 08/20/23 12:19 BUN 21 mg/dL (8-23) 08/20/23 12:19 Creatinine 0.8 mg/dL (0.5-0.9) 08/20/23 12:19 GFR Calculation Not Reportable 08/20/23 12:19 Glucose 112 mg/dL (65-115) 08/20/23 12:19 Calculated Osmolality 280 mOsm/kg (285-295) L 08/20/23 12:19 Calcium 8.5 mg/dL (8.5-10.5) 08/20/23 12:19 Total Bilirubin 0.8 mg/dL (0.15-1.2) 08/20/23 12:19 AST 17 U/L (0-32) 08/20/23 12:19 ALT 15 U/L (0-33) 08/20/23 12:19 Alkaline Phosphatase 179 U/L (35-105) H 08/20/23 12:19 Total Protein 6.2 g/dL (6.6-8.7) L 08/20/23 12:19 Albumin 3.3 g/dL (3.5-5.2) L 08/20/23 12:19 Globulin 2.9 g/dL (1.3-4.6) 08/20/23 12:19 Lipase 68 U/L (13-60) H 08/20/23 12:19 All radiology interpretation(s) finalized by discharge Discharge Plan Discharge Patient Disposition: Home Clinical Impression: Abdominal pain, Colitis Condition: Stable Prescriptions: New hydrocodone-acetaminophen 5-325 mg tablet 1 tab PO Q6H PRN (Reason: pain) Qty: 14 0RF metronidazole 500 mg tablet 500 mg PO Q8H 7 Days Qty: 21 0RF Cipro 500 mg tablet 500 mg PO BID Qty: 14 0RF No Action (DME) Fast Form Cock Up Splint See Rx Instructions .ROUTE .MEDSUPPLY Qty: 1 0RF Rx Instructions: As directed cholecalciferol (vitamin D3) 10 mcg (400 unit) capsule 10 mcg PO QAM ezetimibe 10 mg tablet 10 mg PO QPM magnesium oxide 400 mg magnesium tablet 400 mg PO QAM atorvastatin 40 mg tablet 40 mg PO QPM clopidogrel [Plavix] 75 mg tablet 75 mg PO QAM metoprolol tartrate 25 mg tablet 25 mg PO BID (DME) wheelchair See Rx Instructions .Route .MEDSUPPLY Qty: 1 0RF Rx Instructions: As directed (DME) Portable oxygen concentrator and suplies See Rx Instructions .Route .MEDSUPPLY Qty: 1 0RF Rx Instructions: As directed albuterol sulfate [ProAir HFA] 90 mcg/actuation HFA aerosol inhaler 2 puff inhalation Q4H PRN (Reason: Shortness Of Breath) lisinopril 20 mg tablet 20 mg PO DAILY PRN (Reason: Hypertension) Rx Instructions: hold if sbp is under 130 albuterol sulfate 0.63 mg/3 mL solution for nebulization 0.63 mg inhalation Q4H PRN (Reason: Shortness Of Breath Or Wheezing) zinc acetate 50 mg (zinc) Capsule 50 mg PO QAM levothyroxine 50 mcg tablet 50 mcg PO BEDTIME coenzyme Q10 [CoQ-10] 100 mg Capsule 100 mg PO QAM pantoprazole 40 mg tablet,delayed release (DR/EC) 40 mg PO QPM fluticasone propion-salmeterol 500-50 mcg/dose blister with device 1 inh inhalation Q12H Spiriva Respimat 2.5 mcg/actuation mist 2 puff inhalation QAM Discharge Orders: Discharge ED (Routine); Ordered 08/20/23 Ordered By: Yoel Coburn Referrals: Gordo Crespo MD [Primary Care Provider] - 4-7 days Discharge Diet: Advance as tolerated Discharge Activity: Resume usual activity Patient Instructions: Abdominal Pain (ED), Colitis (ED), Opioid Safety Coding Level of Care Code ED Strike Off Machine Operator for Danielle Colbert
[2023-08-20] MEDS: sodium chloride 0.9% 1,000 ML 999 ML IV (12:27)
[2023-08-20] MEDS: ondansetron 2 mg/ML SDV 2 mL 4 MG IVP (12:27)
[2023-08-20 12:28] LABS: Hematocrit 27.9 % (36-47); Mean Corpuscular HGB Conc 32.6 g/dL (30-55); Mean Corpuscular Hemoglobin 29.8 pg (27-33); Mean Corpuscular Volume 91.5 fl (85-98); Mean Platelet Volume 8.7 fL (7.4-10.4); Platelet Count 303 10^3/cmm (157-399); Red Blood Count 3.05 10^6/uL (3.85-5.65); Red Cell Distribution Width 15.2 % (12.1-15.1); White Blood Count 22.69 10^3/uL (3.29-11.43)
[2023-08-20] MEDS: morphine 4 mg/mL SDV 1 mL IVP (12:35)
[2023-08-20 12:48] LABS: Alanine Aminotransferase 15 U/L (0-33); Albumin Level 3.3 g/dL (3.5-5.2); Alkaline Phosphatase 179 U/L (35-105); Aspartate Amino Transferase 17 U/L (0-32); Blood Urea Nitrogen 21 mg/dL (8-23); Calcium 8.5 mg/dL (8.5-10.5); Carbon Dioxide 21 mmol/L (22-29); Chloride 100 mmol/L (98-107); Creatinine Clr Calc Pharmacy 36.8817; Globulin 2.9 g/dL (1.3-4.6); Glucose 112 mg/dL (65-115); Lipase 68 U/L (13-60); Osmolality Calculated 280 mOsm/kg (285-295); Sodium 133 mmol/L (136-145); Total Bilirubin 0.8 mg/dL (0.15-1.2); Total Protein 6.2 g/dL (6.6-8.7)
--- NOTE | 2023-08-20 12:55 | PC.PHAR ---
PTS' DAUGHTER STATES PT DID TAKE AM MEDICATIONS-NOT SURE IF SHE KEPT ANY OF THEM DOWN. 08/20/23
[2023-08-20 12:57] LABS: Anion Gap 16.5 (5-19); Potassium 4.5 mmol/L (3.5-5.1)
[2023-08-20] MEDS: iohexol 350 mg/mL 500 mL Btl (per mL) IV (13:06)
[2023-08-20 13:12] LABS: Absolute Eosinophils 0.2 10^3/cmm (0.0-0.7); Absolute Neutrophil 21.8 10^3/cmm (1.4-6.5); Absolute Segmented Neutrophil 21.8 10/cmm (1.6-7.1); Eosinophils 1 %; Lymphocytes 2 %; Lymphocytes Absolute 0.5 10^3/cmm (1.2-3.4); Monocytes Absolute 0.2 10^3/cmm (0.1-0.6); Platelet Estimate Normal (Normal); Segmented Neutrophils 96 %; Slide Review Slide Review Perform; Total Cells Counted 100 (0-100)
[2023-08-20 13:13] LABS: Hypersegmented Polys 3+
[2023-08-20] MEDS: ciprofloxacin 500 mg Tablet PO (14:44)
[2023-08-20] MEDS: metroNIDAZOLE 500 MG Tablet PO (14:44)
== END 2023-08-20 15:40 | disposition home or self-care (01) ==
PROVIDERS: Internal Medicine; Emergency Provider Emergency Medicine; PCP Internal Medicine Medical Oncology
DX: K52.9 Noninfective gastroenteritis and colitis, unspecified (principal); Z79.02 Long term (current) use of antithrombotics/antiplatelets; Z87.891 Personal history of nicotine dependence; J44.9 Chronic obstructive pulmonary disease, unspecified; I10 Essential (primary) hypertension; Z85.118 Personal history of other malignant neoplasm of bronchus and lung
CPT/HCPCS: 74177; 80053; 83690; 85007; 85025; 85610; 96374; 96375; 99285; J2270; J2405; J7030; Q9967

== ENCOUNTER 2023-08-21 10:00 | Oncology outpatient (recurring) (ONCR) | payer MEDICARE, SELFPAY ==
[2023-08-08] MEDS: diphenhydrAMINE 25 mg Capsule PO (09:03)
[2023-08-08] MEDS: sodium chloride 0.9% 250 mL Bag IV (09:04)
[2023-08-08] MEDS: acetaminophen 325 mg Tablet 650 MG PO (09:04)
[2023-08-08 11:50] VITALS: BP 149/70; PULSE 80; RESP 16; TEMP 36.7; O2SAT 95
[2023-08-08 12:05] VITALS: BP 149/71; PULSE 72; RESP 16; TEMP 36.6; O2SAT 96
[2023-08-08 12:20] VITALS: BP 157/68; PULSE 65; RESP 16; TEMP 36.6; O2SAT 98
[2023-08-08 13:20] VITALS: BP 144/56; PULSE 59; RESP 16; TEMP 36.2; O2SAT 96
[2023-08-08 13:30] VITALS: BP 144/56; PULSE 59; RESP 16; TEMP 36.2; O2SAT 96
[2023-08-14 09:27] LABS: Basophils # 0.1 10^3/uL (0.0-0.1); Basophils % 0.8 %; Eosinophils % 0.3 %; Hematocrit 29.9 % (36-47); Lymphocytes # 1.1 10^3/uL (0.8-4.8); Lymphocytes % 10.7 %; Mean Corpuscular HGB Conc 31.8 g/dL (30-55); Mean Corpuscular Hemoglobin 28.7 pg (27-33); Mean Corpuscular Volume 90.3 fl (85-98); Mean Platelet Volume 9.1 fL (7.4-10.4); Monocytes # 1.3 10^3/uL (0.2-0.9); Monocytes % 12.9 %; Neutrophils # 7.36 10^3/uL (1.8-7.7); Neutrophils % 73.9 %; Nucleated Red Blood Cells % 0 %; Platelet Count 250 10^3/cmm (157-399); Red Blood Count 3.31 10^6/uL (3.85-5.65); Red Cell Distribution Width 14.7 % (12.1-15.1); White Blood Count 9.97 10^3/uL (3.29-11.43)
[2023-08-14 09:50] LABS: Alanine Aminotransferase 26 U/L (0-33); Albumin Level 3.5 g/dL (3.5-5.2); Alkaline Phosphatase 124 U/L (35-105); Blood Urea Nitrogen 11 mg/dL (8-23); Carbon Dioxide 25 mmol/L (22-29); Chloride 99 mmol/L (98-107); Globulin 3.5 g/dL (1.3-4.6); Glucose 79 mg/dL (65-115); Osmolality Calculated 274 mOsm/kg (285-295); Sodium 133 mmol/L (136-145); Total Bilirubin 0.4 mg/dL (0.15-1.2)
[2023-08-14 09:56] LABS: Anion Gap 14.4 (5-19); Aspartate Amino Transferase 25 U/L (0-32); Potassium 5.4 mmol/L (3.5-5.1)
[2023-08-14] MEDS: acetaminophen 325 mg Tablet 650 MG PO (11:31)
[2023-08-14] MEDS: sodium chloride 0.9% 250 ML 75 ML IV (11:31)
[2023-08-14] MEDS: diphenhydrAMINE 50 mg/mL SDV 1mL 25 MG IVP (11:33)
[2023-08-14] MEDS: famotidine 20 mg/2 mL INJ IVP (11:36)
[2023-08-14] MEDS: fosaprepitant 150 MG in sodium chloride 0.9% 150 ML 300 MG IV (11:53)
[2023-08-14] MEDS: durvalumab 1,500 MG in sodium chloride 0.9% 250 ML 280 MG IV (12:32)
[2023-08-14] MEDS: SODIUM CHLORIDE 0.9% IV (13:48)
[2023-08-14] MEDS: CARBOPLATIN IV (13:48)
[2023-08-14] MEDS: [UNRECOGNIZED DRUG - REMARK] 506 MG IV (14:51)
[2023-08-14 16:10] VITALS: BP 177/72; PULSE 65; RESP 16; TEMP 36.4; O2SAT 95
[2023-08-15] MEDS: sodium chloride 0.9% 250 ML 75 ML IV (12:59)
[2023-08-15] MEDS: ondansetron 2 mg/ML SDV 2 mL 8 MG IVP (12:59)
[2023-08-15] MEDS: [UNRECOGNIZED DRUG - REMARK] 506 MG IV (13:55)
[2023-08-15 15:01] VITALS: BP 156/71; PULSE 70; TEMP 36.3; O2SAT 95
[2023-08-16] MEDS: palonosetron 0.25 mg/5 mL SDV IVP (10:17)
[2023-08-16] MEDS: sodium chloride 0.9% 250 ML 75 ML IV (10:17)
[2023-08-16 10:20] VITALS: BP 155/78; PULSE 56; RESP 16; TEMP 36.4; O2SAT 98
[2023-08-16] MEDS: [UNRECOGNIZED DRUG - REMARK] 506 MG IV (10:21)
[2023-08-16] MEDS: pegfilgrastim 6 mg/0.6 mL Kit (onpro) SUBCUT (11:31)
[2023-08-16 11:43] VITALS: BP 154/61; PULSE 60; RESP 16; TEMP 36.7; O2SAT 93
[2023-08-25 03:59] LABS: TSH Receptor Binding Antibody <1.00 IU/L (< OR = 2.00)
== END 2023-08-21 23:59 | disposition home or self-care (01) ==
PROVIDERS: Nurse Practitioner Family; Absent Provider Radiology Radiation Oncology; PCP Internal Medicine Medical Oncology; Visit Provider Internal Medicine Medical Oncology
DX: Z53.9 Procedure and treatment not carried out, unspecified reason (principal)
CPT/HCPCS: 36430; 80053; 83516; 85025; 86850; 86900; 86920; 96367; 96375; 96377; 96413; 96415; 96417; 99214; A4222; J1100; J1200; J1453; J2405; J2469; J2506; J3490; J7030; J7040; J7050; J9045; J9173; J9181; P9016

== ENCOUNTER 2023-09-11 10:05 | Emergency (ER) | payer MEDICARE, SELFPAY ==
--- NOTE | 2023-09-11 10:08 | XRR_ITS ---
PROCEDURE INFORMATION: Exam: XR Chest Exam date and time: 09/11/2023 10:13 AM Age: 83 years old Clinical indication: Other: Syncope TECHNIQUE: Imaging protocol: Radiologic exam of the chest. Views: 1 view. COMPARISON: CR XR chest 1V portable [id number] 07/10/2023 10:20 AM FINDINGS: Tubes, catheters and devices: Stable PICC line. Lungs: See Pleural spaces finding. Pleural spaces: Small bilateral pleural effusions with adjacent atelectasis. Heart/Mediastinum: Borderline cardiomegaly. Unchanged TAVR. Bones/joints: Unremarkable. XR/XR chest 1V portable [id number] IMPRESSION: No significant change. Stable small effusions.
[2023-09-11 10:09] VITALS: BP 134/37; PULSE 59; RESP 16; O2SAT 97
[2023-09-11 10:20] VITALS: TEMP 36.5
--- NOTE | 2023-09-11 10:29 | ECG_ITS ---
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 Measurements Intervals [place] Rate: 54 P: 91 [place]: 181 QRS: -13 QRSD: 83 T: 73 QT: 458 QTc: 434 Interpretive Statements SINUS BRADYCARDIA WITH OCCASIONAL SUPRAVENTRICULAR PREMATURE COMPLEXES Compared to ECG 07/10/2023 12:30:27 Sinus rhythm no longer present Left-axis deviation no longer present Myocardial infarct finding no longer present Electronically Signed On 09-12-2023 0:22:58 CDT by David Clarke M.D. [id number]
[2023-09-11 10:30] VITALS: BP 124/46; PULSE 63; O2SAT 99
[2023-09-11 10:39] LABS: Glucose Point of Care 93 mg/dL (70-110)
--- NOTE | 2023-09-11 10:44 | ED_ITS ---
HPI - Syncope General: Chief Complaint: Syncope Stated Complaint: SYNCOPE Time Seen by Provider: 09/11/23 10:19 Source: patient and family Mode of arrival: wheelchair Limitations: no limitations History of Present Illness: Patient presents emergency department today accompanied by family for evaluation and treatment of syncopal episode today. Patient states that she had been at the infusion center when she had an episode of syncope. Family reports witnessing the episode. Patient was seated in a wheelchair in her room. They were waiting for the nursing staff to come and to treat her when the patient became unresponsive. Family states the patient's eyes remained open and there was no shaking. She did not fall from the chair. They state the episode lasted approximately 30 seconds. Family states that the patient had a cancer treatment last week and is often more sick around this time after her therapies. Patient states she has had some upset stomach which is normal for her. She has not been running fever recently. Family reports patient has had 3 or 4 syncopal episodes over the last few months but states they typically happen while she is using the bathroom. A rapid response was called at the infusion center and patient was brought over. The family member states that in the past, when she has had syncope, she has been anemic and required a transfusion. Last transfusion was August 23. Patient is denying any acute pain or chest pains. She denies palpitations. 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 Hyponatremia Acute respiratory failure with hypoxia Pleural effusion on right Hypoxia Pharyngitis Chronic anticoagulation Atrial fibrillation Exertional dyspnea Aortic stenosis Fracture of distal end of left radius and ulna PVD (peripheral vascular disease) COPD (chronic obstructive pulmonary disease) HTN (hypertension) Surgical History S/P ORIF (open reduction internal fixation) fracture (2022) Left hip fracture History of coronary artery stent placement History of radiofrequency ablation procedure for cardiac arrhythmia Hx of resection of small bowel (2016) History of hernia repair (2021) bilateral inguinal hernia repair History of hysterectomy Family History Mother CAD (coronary artery disease) Stroke Father CAD (coronary artery disease) Lung disease Brother Diabetes Social History Smoking and tobacco/nicotine status: unknown if used tobacco/nicotine Quit status (tobacco/nicotine): has quit using Year quit tobacco: quit 1985 Former quit date comment: 1 ppd x 30 years Alcohol intake: never Current gender identity: Female Physical Exam Const: COMMON NORMALS: no acute distress, patient oriented x3 and alert HENMT: COMMON NORMALS: atraumatic, hearing grossly normal bilaterally, moist oral mucous membranes and dentition normal HEAD & SCALP: atraumatic Eye: COMMON NORMALS: Equal, round and reactive pupils present, EOMs intact bilaterally and conjunctivae normal CONJUNCTIVA: Yes conjunctivae normal PUPIL: Yes Equal, round and reactive pupils present Neck/C-Spine: COMMON NORMALS: full ROM and no JVD Lymph: LYMPHATIC: no lymphadenopathy noted Resp: COMMON NORMALS: normal respiratory effort, No retractions, No use of accessory muscles and clear to auscultation bilaterally AUSCULTATION: clear to auscultation bilaterally Cardio: COMMON NORMALS: no JVD, regular rate and regular rhythm RATE: regular rate RHYTHM: regular rhythm GI: OTHER: Abdomen is soft. Hyperactive bowel sounds throughout. Back/Pelvis: COMMON NORMALS: no thoracic nor lumbar tenderness and thoraco- lumbar ROM normal Extremity: COMMON NORMALS: normal to inspection, full ROM and capillary refill normal Neuro: COMMON NORMALS: patient oriented x3 SENSORIUM/ORIENTATION: Yes alert Psych: COMMON NORMALS: mental status grossly normal, Normal thought process present, cooperative, normal affect and activity/motor behavior normal THOUGHT PROCESS: Normal thought process present Skin: COMMON NORMALS: no rashes or lesions noted and no wounds GENERAL SKIN EXAM: no rashes or lesions noted Course Vital Signs: Vital signs: Vital Signs Temperature 97.7 F 09/11/23 10:20 Pulse Rate 61 09/11/23 12:30 Respiratory Rate 16 09/11/23 10:09 Blood Pressure 151/57 09/11/23 12:30 Pulse Oximetry 99 09/11/23 12:30 Oxygen Delivery Me thod Room Air 09/11/23 12:30 MDM - Syncope Medical Decision Making Patient comes in today for vasovagal syncope at the infusion clinic. Family states this has happened before but that patient sometimes needs a transfusion. Labs today look pretty good (CBC and CMP run just previous to arriving in ER so were not repeated by lab)- Hemoglobin was 7.5. Discussed with Dr Davila who noted we do not usually do transfusions at 7.5 but with patients history, would be work a call to Dr Odell office to discuss. I called up to the clinic but Dr Crespo is out of the office. Spoke to Massiel WOODS who thought patient would benefit from possibly 2 bags. However, they cannot accommodate 2 bags in the clinic t radha. Pt could choose to have one bag today and another tomorrow or could had 2 tomorrow. Pts type and cross was already done today and does not need to be repeated. Discussed options with patient and family. they wish to have a bag today. Notified Massiel WOODS of the patients decision. Will discharge patient to go directly to receive a transfusion today. Differential Diagnosis Likely vasovagal syncope; Unlikely syncope due to orthostatic hypotension, complete atrioventricular block or dehydration Lab Data Radiology Impressions Chest X-Ray 09/11/23 10:08 IMPRESSION: No significant change. Stable small effusions. Laboratory Results POC Glucose 93 mg/dL (70-110) 09/11/23 10:35 Troponin T Baseline 29 ng/L (0-10) H 09/11/23 09:54 All radiology interpretation(s) finalized by discharge Discharge Plan Discharge Patient Disposition: Home Clinical Impression: Vasovagal syncope, Hemoglobin low Condition: Stable Prescriptions: No Action (DME) Fast Form Cock Up Splint See Rx Instructions .ROUTE .MEDSUPPLY Qty: 1 0RF Rx Instructions: As directed cholecalciferol (vitamin D3) 10 mcg (400 unit) capsule 10 mcg PO QAM ezetimibe 10 mg tablet 10 mg PO QPM magnesium oxide 400 mg magnesium tablet 400 mg PO QAM atorvastatin 40 mg tablet 40 mg PO QPM clopidogrel [Plavix] 75 mg tablet 75 mg PO QAM metoprolol tartrate 25 mg tablet 25 mg PO BID (DME) wheelchair See Rx Instructions .Route .MEDSUPPLY Qty: 1 0RF Rx Instructions: As directed (DME) Portable oxygen concentrator and suplies See Rx Instructions .Route .MEDSUPPLY Qty: 1 0RF Rx Instructions: As directed albuterol sulfate [ProAir HFA] 90 mcg/actuation HFA aerosol inhaler 2 puff inhalation Q4H PRN (Reason: Shortness Of Breath) lisinopril 20 mg tablet 20 mg PO DAILY PRN (Reason: Hypertension) Rx Instructions: hold if sbp is under 130 albuterol sulfate 0.63 mg/3 mL solution for nebulization 0.63 mg inhalation Q4H PRN (Reason: Shortness Of Breath Or Wheezing) zinc acetate 50 mg (zinc) Capsule 50 mg PO QAM levothyroxine 50 mcg tablet 50 mcg PO BEDTIME coenzyme Q10 [CoQ-10] 100 mg Capsule 100 mg PO QAM pantoprazole 40 mg tablet,delayed release (DR/EC) 40 mg PO QPM fluticasone propion-salmeterol 500-50 mcg/dose blister with device 1 inh inhalation Q12H Spiriva Respimat 2.5 mcg/actuation mist 2 puff inhalation QAM Discharge Orders: Discharge ED (Routine); Ordered 09/11/23 Ordered By: Maggie Wellington Referrals: Gordo Crespo MD [Primary Care Provider] - Discharge Diet: Usual diet Discharge Activity: Increase activity as tolerated Patient Instructions: Syncope in Older Adults (ED) Activity Restrictions/Additional Instructions: Labs today here appear stable. Your hemoglobin is 7.5. After speaking to Dr. Crespo's office they are willing to provide you a transfusion today in their office. You are to go directly from the emergency department over to their clinic to receive your transfusion. Coding Level of Care Code ED Lead Technical Architect for Danielle Colbert
[2023-09-11 11:00] VITALS: BP 134/52; PULSE 60; O2SAT 95
[2023-09-11 11:00] LABS: Troponin(5th) Baseline 29 ng/L (0-10)
--- NOTE | 2023-09-11 12:08 | ECG_ITS ---
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 Measurements Intervals [place] Rate: 62 P: 149 DC: 208 QRS: -75 QRSD: 82 T: 152 QT: 433 QTc: 440 Interpretive Statements ECTOPIC ATRIAL RHYTHM WITH OCCASIONAL VENTRICULAR PREMATURE COMPLEXES INFERIOR MYOCARDIAL INFARCTION , PROBABLY OLD [40+ ms Q WAVE AND/OR ST/T ABNORMALITY IN II/aVF] Compared to ECG 09/11/2023 10:29:45 Ectopic atrial rhythm now present Ventricular premature complex(es) now present Myocardial infarct finding now present Sinus bradycardia no longer present Electronically Signed On 09-12-2023 0:32:19 CDT by David Clarke M.D. [id number]
[2023-09-11 12:30] VITALS: BP 151/57; PULSE 61; O2SAT 99
== END 2023-09-11 13:03 | disposition home or self-care (01) ==
PROVIDERS: Emergency Medicine; Emergency Provider Physician Assistant; PCP Internal Medicine Medical Oncology
DX: R55 Syncope and collapse (principal); D64.9 Anemia, unspecified; Z87.891 Personal history of nicotine dependence; I10 Essential (primary) hypertension; Z79.899 Other long term (current) drug therapy
CPT/HCPCS: 36416; 71045; 82962; 84484; 93005; 99285

== ENCOUNTER 2023-09-12 08:30 | Oncology outpatient (recurring) (ONCR) | payer MEDICARE, SELFPAY ==
[2023-08-24] MEDS: diphenhydrAMINE 25 mg Capsule PO (08:08)
[2023-08-24] MEDS: acetaminophen 325 mg Tablet 650 MG PO (08:08)
[2023-08-24] MEDS: sodium chloride 0.9% 250 ML 75 ML IV (08:08)
[2023-08-24 08:40] VITALS: BP 129/49; PULSE 56; RESP 16; TEMP 36.8; O2SAT 91
[2023-08-24 08:55] VITALS: BP 125/62; PULSE 57; RESP 16; TEMP 36.6; O2SAT 91
[2023-08-24 09:10] VITALS: BP 135/68; PULSE 58; RESP 16; TEMP 36.8; O2SAT 94
[2023-08-24 10:10] VITALS: BP 122/66; PULSE 60; RESP 16; TEMP 36.8; O2SAT 93
[2023-08-28 11:26] LABS: Basophils # 0.1 10^3/uL (0.0-0.1); Basophils % 0.4 %; Eosinophils # 0.1 10^3/uL (0.0-0.8); Eosinophils % 0.5 %; Hematocrit 25.7 % (36-47); Lymphocytes # 1.3 10^3/uL (0.8-4.8); Lymphocytes % 9.4 %; Mean Corpuscular HGB Conc 32.7 g/dL (30-55); Mean Corpuscular Hemoglobin 29.1 pg (27-33); Mean Corpuscular Volume 88.9 fl (85-98); Mean Platelet Volume 9.5 fL (7.4-10.4); Monocytes # 1.2 10^3/uL (0.2-0.9); Monocytes % 8.7 %; Neutrophils # 10.92 10^3/uL (1.8-7.7); Neutrophils % 79.7 %; Nucleated Red Blood Cells % 0 %; Platelet Count 37 10^3/cmm (157-399); Red Blood Count 2.89 10^6/uL (3.85-5.65); Red Cell Distribution Width 15.1 % (12.1-15.1); White Blood Count 13.71 10^3/uL (3.29-11.43)
[2023-08-28 11:43] LABS: Alanine Aminotransferase 18 U/L (0-33); Albumin Level 3.1 g/dL (3.5-5.2); Alkaline Phosphatase 105 U/L (35-105); Aspartate Amino Transferase 21 U/L (0-32); Blood Urea Nitrogen 7 mg/dL (8-23); Calcium 8.2 mg/dL (8.5-10.5); Carbon Dioxide 22 mmol/L (22-29); Chloride 100 mmol/L (98-107); Globulin 3.1 g/dL (1.3-4.6); Glucose 84 mg/dL (65-115); Osmolality Calculated 275 mOsm/kg (285-295); Sodium 134 mmol/L (136-145); Total Bilirubin 0.3 mg/dL (0.15-1.2); Total Protein 6.2 g/dL (6.6-8.7)
[2023-08-28 11:59] LABS: Anion Gap 15.9 (5-19); Potassium 3.9 mmol/L (3.5-5.1)
[2023-09-04 08:57] LABS: Basophils % 0.5 %; Eosinophils # 0.1 10^3/uL (0.0-0.8); Eosinophils % 0.7 %; Lymphocytes # 0.9 10^3/uL (0.8-4.8); Lymphocytes % 10.6 %; Mean Corpuscular HGB Conc 32.5 g/dL (30-55); Mean Corpuscular Hemoglobin 29.6 pg (27-33); Mean Corpuscular Volume 91.2 fl (85-98); Mean Platelet Volume 9.2 fL (7.4-10.4); Monocytes # 0.8 10^3/uL (0.2-0.9); Monocytes % 9.5 %; Neutrophils # 6.71 10^3/uL (1.8-7.7); Neutrophils % 78.1 %; Nucleated Red Blood Cells % 0 %; Platelet Count 187 10^3/cmm (157-399); Red Blood Count 3.07 10^6/uL (3.85-5.65); White Blood Count 8.59 10^3/uL (3.29-11.43)
[2023-09-04 09:23] LABS: Alanine Aminotransferase 15 U/L (0-33); Albumin Level 3.2 g/dL (3.5-5.2); Alkaline Phosphatase 94 U/L (35-105); Blood Urea Nitrogen 10 mg/dL (8-23); Carbon Dioxide 23 mmol/L (22-29); Chloride 100 mmol/L (98-107); Globulin 3.3 g/dL (1.3-4.6); Glucose 93 mg/dL (65-115); Osmolality Calculated 273 mOsm/kg (285-295); Sodium 132 mmol/L (136-145); Total Bilirubin 0.4 mg/dL (0.15-1.2); Total Protein 6.5 g/dL (6.6-8.7)
[2023-09-04 09:27] LABS: Anion Gap 13.9 (5-19); Aspartate Amino Transferase 22 U/L (0-32); Potassium 4.9 mmol/L (3.5-5.1)
[2023-09-04] MEDS: acetaminophen 325 mg Tablet 650 MG PO (11:30)
[2023-09-04] MEDS: sodium chloride 0.9% 250 ML 75 ML IV (11:30)
[2023-09-04] MEDS: diphenhydrAMINE 50 mg/mL SDV 1mL 25 MG IVP (11:31)
[2023-09-04] MEDS: famotidine 20 mg/2 mL INJ IVP (11:32)
[2023-09-04] MEDS: fosaprepitant 150 MG in sodium chloride 0.9% 150 ML 300 MG IV (12:01)
[2023-09-04] MEDS: durvalumab 1,500 MG in sodium chloride 0.9% 250 ML 280 MG IV (12:43)
[2023-09-04] MEDS: CARBOPLATIN IV (13:51)
[2023-09-04] MEDS: SODIUM CHLORIDE 0.9% IV (13:51)
[2023-09-04] MEDS: [UNRECOGNIZED DRUG - REMARK] 506 MG IV (14:57)
[2023-09-04 16:44] VITALS: BP 177/76; PULSE 64; RESP 16; TEMP 36.3; O2SAT 94
[2023-09-05] MEDS: ondansetron 2 mg/ML SDV 2 mL 8 MG IVP (10:58)
[2023-09-05] MEDS: sodium chloride 0.9% 250 ML 75 ML IV (10:58)
[2023-09-05 11:00] VITALS: BP 150/66; PULSE 73; RESP 16; TEMP 36.4; O2SAT 99
[2023-09-05] MEDS: [UNRECOGNIZED DRUG - REMARK] 506 MG IV (11:42)
[2023-09-06] MEDS: sodium chloride 0.9% 250 ML 75 ML IV (11:49)
[2023-09-06] MEDS: palonosetron 0.25 mg/5 mL SDV IVP (11:50)
[2023-09-06] MEDS: [UNRECOGNIZED DRUG - REMARK] 506 MG IV (12:06)
[2023-09-06] MEDS: pegfilgrastim 6 mg/0.6 mL Kit (onpro) SUBCUT (13:18)
[2023-09-06 13:26] VITALS: BP 133/55; PULSE 65; RESP 18; TEMP 35.9; O2SAT 99
[2023-09-11] VITALS (7 sets, daily range): BP systolic 96–148; BP diastolic 44–67; PULSE 44–66; RESP 8–16; TEMP 36.1–36.7; O2SAT 95–99
[2023-09-11 10:31] LABS: Alanine Aminotransferase 12 U/L (0-33); Albumin Level 3.4 g/dL (3.5-5.2); Alkaline Phosphatase 109 U/L (35-105); Aspartate Amino Transferase 16 U/L (0-32); Blood Urea Nitrogen 15 mg/dL (8-23); Calcium 8.3 mg/dL (8.5-10.5); Carbon Dioxide 22 mmol/L (22-29); Chloride 98 mmol/L (98-107); Creatinine Clr Calc Pharmacy 46.2006; Globulin 3.2 g/dL (1.3-4.6); Glucose 117 mg/dL (65-115); Osmolality Calculated 276 mOsm/kg (285-295); Sodium 132 mmol/L (136-145); Total Bilirubin 0.9 mg/dL (0.15-1.2); Total Protein 6.6 g/dL (6.6-8.7)
[2023-09-11 10:33] LABS: Basophils # 0.1 10^3/uL (0.0-0.1); Basophils % 1.1 %; Eosinophils % 0.4 %; Hematocrit 23.2 % (36-47); Lymphocytes # 0.7 10^3/uL (0.8-4.8); Lymphocytes % 15.4 %; Mean Corpuscular HGB Conc 32.3 g/dL (30-55); Mean Corpuscular Hemoglobin 29.6 pg (27-33); Mean Corpuscular Volume 91.7 fl (85-98); Mean Platelet Volume 9.3 fL (7.4-10.4); Monocytes # 0.1 10^3/uL (0.2-0.9); Monocytes % 2.7 %; Neutrophils # 3.44 10^3/uL (1.8-7.7); Neutrophils % 76.8 %; Nucleated Red Blood Cells % 0 %; Platelet Count 154 10^3/cmm (157-399); Red Blood Count 2.53 10^6/uL (3.85-5.65); Red Cell Distribution Width 16.5 % (12.1-15.1); White Blood Count 4.48 10^3/uL (3.29-11.43)
[2023-09-11 11:43] LABS: Slide Review Slide Review Perform
--- NOTE | 2023-09-11 11:47 | PC.NURSE ---
Patient Condition Patient scheduled today for PICC line dressing change and labs. On arrival patient was lethargic and stated she had not been feeling well the last few days . This nurse left patient room to gather supplies for dressing change. Upon returning to room at 0945, ELIAS Echevarria had responded to patient who had lost consciousness. At 0945, patient was breathing and had pulse, but did not arouse to voice. Vital signs at 0945 were BP 96/44, pulse 44 bpm, O2 sat. 97% on 2L, resp. rate 8. Rapid response was called at 0945 and Lashay Sykes APRN was notified. Patient was started on oxygen and 500 ml bolus at 0945. Patient regained consciousness at 0947. Rapid response team responded at 0950 and took patient to ED for further evaluation.
[2023-09-11] MEDS: diphenhydrAMINE 25 mg Capsule PO (13:57)
[2023-09-11] MEDS: acetaminophen 325 mg Tablet 650 MG PO (13:57)
[2023-09-11] MEDS: sodium chloride 0.9% 250 mL Bag IV (13:57)
[2023-09-12 08:45] VITALS: BP 134/66; PULSE 67; RESP 16; TEMP 36.3; O2SAT 96; BMI 18.1
[2023-09-12] MEDS: sodium chloride 0.9% 250 mL Bag IV (08:47)
[2023-09-12] MEDS: acetaminophen 325 mg Tablet 650 MG PO (08:47)
[2023-09-12] MEDS: diphenhydrAMINE 25 mg Capsule PO (08:48)
[2023-09-12 09:15] VITALS: BP 131/57; PULSE 58; RESP 16; TEMP 36.8; O2SAT 95
[2023-09-12 09:30] VITALS: BP 140/59; PULSE 54; RESP 16; TEMP 36.5; O2SAT 93
[2023-09-12 09:45] VITALS: BP 132/61; PULSE 51; RESP 16; TEMP 36.6; O2SAT 96
[2023-09-12 11:00] VITALS: BP 148/60; PULSE 50; RESP 16; TEMP 36.4; O2SAT 95
[2023-09-14 17:29] LABS: TSH Receptor Binding Antibody <1.00 IU/L (< OR = 2.00)
== END 2023-09-12 23:59 | disposition home or self-care (01) ==
PROVIDERS: Nurse Practitioner Family; Absent Provider Radiology Radiation Oncology; PCP Internal Medicine Medical Oncology; Visit Provider Internal Medicine Medical Oncology
DX: D64.9 Anemia, unspecified (principal); Z53.9 Procedure and treatment not carried out, unspecified reason
CPT/HCPCS: 36430; 36592; 80053; 83516; 85025; 86850; 86900; 86920; 96367; 96372; 96375; 96413; 96417; 99214; A4222; J1100; J1200; J1453; J2405; J2469; J2506; J3490; J7030; J7040; J7050; J9045; J9173; J9181; P9016; P9040

== ENCOUNTER 2023-09-19 09:00 | Oncology outpatient (recurring) (ONCR) | payer MEDICARE, SELFPAY ==
[2023-09-18 14:01] LABS: Basophils % 0.6 %; Eosinophils % 0.5 %; Hematocrit 29.1 % (36-47); Lymphocytes # 1.7 10^3/uL (0.8-4.8); Lymphocytes % 25.7 %; Mean Corpuscular HGB Conc 33.3 g/dL (30-55); Mean Corpuscular Hemoglobin 29.4 pg (27-33); Mean Corpuscular Volume 88.2 fl (85-98); Mean Platelet Volume 10.5 fL (7.4-10.4); Monocytes # 0.7 10^3/uL (0.2-0.9); Monocytes % 11.1 %; Neutrophils # 4.05 10^3/uL (1.8-7.7); Neutrophils % 61.5 %; Nucleated Red Blood Cells % 0 %; Red Cell Distribution Width 14.2 % (12.1-15.1); White Blood Count 6.58 10^3/uL (3.29-11.43)
[2023-09-18 14:16] LABS: Alanine Aminotransferase 25 U/L (0-33); Albumin Level 3.2 g/dL (3.5-5.2); Alkaline Phosphatase 113 U/L (35-105); Anion Gap 15.1 (5-19); Aspartate Amino Transferase 20 U/L (0-32); Blood Urea Nitrogen 9 mg/dL (8-23); Calcium 8.2 mg/dL (8.5-10.5); Carbon Dioxide 24 mmol/L (22-29); Chloride 97 mmol/L (98-107); Globulin 3.1 g/dL (1.3-4.6); Glucose 107 mg/dL (65-115); Osmolality Calculated 273 mOsm/kg (285-295); Potassium 4.1 mmol/L (3.5-5.1); Sodium 132 mmol/L (136-145); Total Bilirubin 0.4 mg/dL (0.15-1.2); Total Protein 6.3 g/dL (6.6-8.7)
[2023-09-18 14:19] LABS: Slide Review Slide Review Perform
[2023-09-18 14:20] LABS: Platelet Count 6 10^3/cmm (157-399)
--- NOTE | 2023-09-18 14:39 | PC.NURSE ---
Called patient daughter and informed that platelets came back at 6 and transfusion is needed. Patient to watch for signs of bleeding and go to ER if bleeding noted. Patient to come into clinic tomorrow 09/19/23 at 0900 for transfusion. Patient daughter verbalized understanding.
[2023-09-19 09:06] VITALS: BP 153/59; PULSE 61; RESP 16; TEMP 36.3; O2SAT 97
[2023-09-19] MEDS: acetaminophen 325 mg Tablet 650 MG PO (09:23)
[2023-09-19] MEDS: diphenhydrAMINE 25 mg Capsule PO (09:23)
[2023-09-19 09:29] VITALS: BP 148/54; PULSE 62; RESP 18; TEMP 36.4; O2SAT 97
[2023-09-19 11:20] VITALS: BP 173/57; PULSE 53; RESP 18; TEMP 36.4; O2SAT 96
== END 2023-09-21 23:59 | disposition home or self-care (01) ==
PROVIDERS: Nurse Practitioner Family; Absent Provider Radiology Radiation Oncology; PCP Internal Medicine Medical Oncology; Visit Provider Internal Medicine Medical Oncology
DX: C34.90 Malignant neoplasm of unspecified part of unspecified bronchus or lung; Z53.9 Procedure and treatment not carried out, unspecified reason
CPT/HCPCS: 36592; 80053; 85025; 86850; 86900; 86920; P9016

== ENCOUNTER 2023-10-16 13:45 | Oncology outpatient (recurring) (ONCR) | payer MEDICARE, SELFPAY ==
[2023-09-26] MEDS: iohexol 350 mg/mL 500 mL Btl (per mL) PO (09:02)
[2023-09-26 09:19] LABS: Basophils % 0.4 %; Eosinophils % 0.2 %; Lymphocytes # 1.3 10^3/uL (0.8-4.8); Lymphocytes % 12.7 %; Mean Corpuscular HGB Conc 32.9 g/dL (30-55); Mean Corpuscular Hemoglobin 29.3 pg (27-33); Mean Corpuscular Volume 89.2 fl (85-98); Mean Platelet Volume 8.8 fL (7.4-10.4); Monocytes # 1.6 10^3/uL (0.2-0.9); Monocytes % 15.5 %; Neutrophils # 7.28 10^3/uL (1.8-7.7); Neutrophils % 69.8 %; Nucleated Red Blood Cells % 0 %; Platelet Count 176 10^3/cmm (157-399); Red Blood Count 3.14 10^6/uL (3.85-5.65); Red Cell Distribution Width 14.8 % (12.1-15.1); White Blood Count 10.44 10^3/uL (3.29-11.43)
--- NOTE | 2023-09-26 09:30 | CTR_ITS ---
PROCEDURE INFORMATION: Exam: CT Chest With Contrast; Diagnostic Exam date and time: 09/26/2023 9:33 AM Age: 83 years old Clinical indication: Condition or disease; Other: Lung cancer; Follow-up oncological assessment; Prior surgery; Surgery date: 6+ months; Surgery type: Heart stents, gb, hernia, colon, stomach, left hip; Additional info: Restaging TECHNIQUE: Imaging protocol: Diagnostic computed tomography of the chest with contrast. Radiation optimization: All CT scans at this facility use at least one of these dose optimization techniques: automated exposure control; mA and/or kV adjustment per patient size (includes targeted exams where dose is matched to clinical indication); or iterative reconstruction. Contrast material: OMNI 350; Contrast volume: 100 ml; Contrast route: INTRAVENOUS (IV); COMPARISON: CT chest abdpel w/*[id number] 07/02/2023 3:54 PM RADIATION DOSE METRICS: Total DLP (mGy-cm): 465.26 FINDINGS: Thyroid: Grossly unremarkable. Lungs: There has been significant interval improvement of the previously visualized FDG avid subpleural right upper lobe mass as well as the right suprahilar mass/shaniqua conglomerate. The subpleural mass has nearly entirely resolved with minimal residual pleural thickening (image 13 of series 3). The right suprahilar mass/shaniqua conglomerate has also nearly resolved with mildly thickened shaniqua tissue in this region (image 21 of series 3). There is stable scarring in the right infrahilar region. No new or enlarging masses. Scattered calcified granulomas noted throughout both lungs. Trace right-sided pleural effusion, similar to prior. No focal consolidation. No pneumothorax. Heart: No cardiomegaly. No pericardial effusion. Aortic valve replacement noted. Suspected coronary stent in the RCA. Lymph nodes: The previously visualized bulky right paratracheal node has significantly decreased in size, now measuring 14 mm short axis in comparison to approximately 27 mm short axis on prior. A high right paratracheal node has also significantly decreased in size. Vasculature: Moderate-severe atherosclerosis without aneurysmal dilatation of the thoracic aorta. No evidence of dissection. Though this study is not tailored to evaluate for pulmonary thromboembolism, there is no evidence of PE within limitations of respiratory motion. Right-sided PICC line in place with tip terminating in the distal SVC. Bones/joints: No evidence of acute fracture or aggressive osseous lesion. Soft tissues: No fluid collection or hematoma in the superficial soft tissues. PROCEDURE INFORMATION: Exam: CT Abdomen And Pelvis With Contrast Exam date and time: 09/26/2023 9:33 AM Age: 83 years old Clinical indication: Condition or disease; Other: Lung cancer; Follow-up oncological assessment; Prior surgery; Surgery date: 6+ months; Surgery type: Heart stents, gb, hernia, colon, stomach, left hip; Additional info: Restaging TECHNIQUE: Imaging protocol: Computed tomography of the abdomen and pelvis with contrast. Radiation optimization: All CT scans at this facility use at least one of these dose optimization techniques: automated exposure control; mA and/or kV adjustment per patient size (includes targeted exams where dose is matched to clinical indication); or iterative reconstruction. Contrast material: OMNI 350; Contrast volume: 100 ml; Contrast route: INTRAVENOUS (IV); COMPARISON: CT abdomen pelvis w con* [id number] 08/20/2023 1:03 PM RADIATION DOSE METRICS: Total DLP (mGy-cm): 465.26 FINDINGS: Liver: Hepatic steatosis. No evidence of focal hepatic lesion. Gallbladder and bile ducts: Status post cholecystectomy. Mild central intrahepatic biliary dilatation. There is mild extrahepatic biliary dilatation, frequently seen post cholecystectomy. CBD measures up to 12 mm. No evidence of intraductal stone. Pancreas: Mildly atrophic. Otherwise grossly unremarkable. Spleen: Unremarkable. Adrenal glands: Unremarkable. Kidneys and ureters: Bilateral renal parenchymal scarring. No hydronephrosis or ureteral stone. There is a simple appearing right-sided renal cyst for which dedicated imaging follow-up is not required. Stomach and bowel: Colonic diverticulosis without evidence of acute diverticulitis. No bowel obstruction or perienteric inflammatory changes. Appendix: Normal appendix. Intraperitoneal space: No evidence of free air or fluid collection. Vasculature: Extensive aortobiiliac atherosclerosis without aneurysmal dilatation or dissection. The celiac trunk, SMA and WILVER are grossly patent. There is severe narrowing of the origins of the celiac trunk and SMA secondary to densely calcified atherosclerotic plaque. No evidence of IVC thrombus. The portal vein, SMV and splenic veins are grossly patent. Lymph nodes: No adenopathy. Urinary bladder: Grossly unremarkable. Reproductive: Grossly unremarkable. Bones/joints: No evidence of acute fracture or aggressive osseous lesion. ORIF of the proximal left femur with intramedullary grace in place.Moderate multilevel spondylosis of the lumbar spine with facet arthrosis and osteophytosis. Severe L4-L5 central stenosis secondary to disc bulge and ligamentum hypertrophy. Consider correlation with follow-up outpatient MRI if there is concern for neural impingement. Soft tissues: No evidence of fluid collection or hematoma in the superficial soft tissues. CT/CT chest abdpel w/*[id number] IMPRESSION: 1. Significant interval improvement in the right upper lobe subpleural mass and suprahilar shaniqua conglomerate/mass. 2. Significant interval improvement in mediastinal adenopathy. 3. Trace right-sided pleural effusion. IMPRESSION: 1. No evidence of metastatic disease in the abdomen or pelvis. 2. Severe narrowing of the origins of the celiac trunk and SMA secondary to densely calcified atherosclerotic plaque. Consider follow-up outpatient vascular evaluation.
[2023-09-26 09:34] LABS: Alanine Aminotransferase 21 U/L (0-33); Albumin Level 3.5 g/dL (3.5-5.2); Alkaline Phosphatase 128 U/L (35-105); Anion Gap 15.1 (5-19); Aspartate Amino Transferase 19 U/L (0-32); Blood Urea Nitrogen 9 mg/dL (8-23); Calcium 8.7 mg/dL (8.5-10.5); Carbon Dioxide 23 mmol/L (22-29); Chloride 100 mmol/L (98-107); Globulin 3.1 g/dL (1.3-4.6); Glucose 69 mg/dL (65-115); Osmolality Calculated 275 mOsm/kg (285-295); Potassium 4.1 mmol/L (3.5-5.1); Sodium 134 mmol/L (136-145); Total Bilirubin 0.3 mg/dL (0.15-1.2); Total Protein 6.6 g/dL (6.6-8.7)
[2023-09-26] MEDS: iohexol 350 mg/mL 500 mL Btl (per mL) IV (09:39)
[2023-10-02 09:00] LABS: Basophils # 0.1 10^3/uL (0.0-0.1); Eosinophils % 0.3 %; Hematocrit 28.2 % (36-47); Lymphocytes # 0.9 10^3/uL (0.8-4.8); Lymphocytes % 11.8 %; Mean Corpuscular HGB Conc 33.3 g/dL (30-55); Mean Corpuscular Hemoglobin 30.2 pg (27-33); Mean Corpuscular Volume 90.7 fl (85-98); Mean Platelet Volume 8.3 fL (7.4-10.4); Monocytes # 1.2 10^3/uL (0.2-0.9); Monocytes % 15.2 %; Neutrophils # 5.55 10^3/uL (1.8-7.7); Neutrophils % 70.9 %; Nucleated Red Blood Cells % 0 %; Platelet Count 368 10^3/cmm (157-399); Red Blood Count 3.11 10^6/uL (3.85-5.65); Red Cell Distribution Width 16.5 % (12.1-15.1); White Blood Count 7.82 10^3/uL (3.29-11.43)
[2023-10-02 09:17] LABS: Alanine Aminotransferase 19 U/L (0-33); Albumin Level 3.6 g/dL (3.5-5.2); Alkaline Phosphatase 114 U/L (35-105); Anion Gap 15.5 (5-19); Aspartate Amino Transferase 18 U/L (0-32); Blood Urea Nitrogen 14 mg/dL (8-23); Calcium 8.8 mg/dL (8.5-10.5); Carbon Dioxide 22 mmol/L (22-29); Chloride 100 mmol/L (98-107); Globulin 3.2 g/dL (1.3-4.6); Glucose 112 mg/dL (65-115); Osmolality Calculated 277 mOsm/kg (285-295); Potassium 4.5 mmol/L (3.5-5.1); Sodium 133 mmol/L (136-145); Total Bilirubin 0.4 mg/dL (0.15-1.2); Total Protein 6.8 g/dL (6.6-8.7)
[2023-10-02] MEDS: durvalumab 1,500 MG in sodium chloride 0.9% 250 ML 280 MG IV (11:20)
[2023-10-02 11:23] VITALS: BP 161/60; PULSE 54; RESP 16; O2SAT 97
[2023-10-02 12:30] VITALS: BP 158/78; PULSE 68; RESP 17; TEMP 36.6; O2SAT 98
[2023-10-05 18:00] LABS: TSH Receptor Binding Antibody <1.00 IU/L (< OR = 2.00)
[2023-10-16 14:35] LABS: Basophils # 0.1 10^3/uL (0.0-0.1); Eosinophils # 0.2 10^3/uL (0.0-0.8); Eosinophils % 2.6 %; Lymphocytes # 1.5 10^3/uL (0.8-4.8); Lymphocytes % 16.7 %; Mean Corpuscular HGB Conc 33.6 g/dL (30-55); Mean Corpuscular Hemoglobin 31.6 pg (27-33); Mean Corpuscular Volume 94.3 fl (85-98); Monocytes # 0.9 10^3/uL (0.2-0.9); Monocytes % 10.4 %; Neutrophils # 6.07 10^3/uL (1.8-7.7); Nucleated Red Blood Cells % 0 %; Platelet Count 225 10^3/cmm (157-399); Red Blood Count 2.97 10^6/uL (3.85-5.65); Red Cell Distribution Width 18.6 % (12.1-15.1); White Blood Count 8.81 10^3/uL (3.29-11.43)
[2023-10-16 14:48] LABS: Alanine Aminotransferase 19 U/L (0-33); Albumin Level 3.9 g/dL (3.5-5.2); Alkaline Phosphatase 97 U/L (35-105); Anion Gap 15.9 (5-19); Aspartate Amino Transferase 20 U/L (0-32); Blood Urea Nitrogen 17 mg/dL (8-23); Calcium 8.8 mg/dL (8.5-10.5); Carbon Dioxide 22 mmol/L (22-29); Chloride 99 mmol/L (98-107); Creatinine Clr Calc Pharmacy 44.4159; Globulin 3.1 g/dL (1.3-4.6); Glucose 94 mg/dL (65-115); Osmolality Calculated 275 mOsm/kg (285-295); Potassium 4.9 mmol/L (3.5-5.1); Sodium 132 mmol/L (136-145); Thyroid Stimulating Hormone 0.26 uIU/mL (0.27-4.20); Total Bilirubin 0.5 mg/dL (0.15-1.2)
== END 2023-10-21 23:59 | disposition home or self-care (01) ==
PROVIDERS: Nurse Practitioner Family; Absent Provider Radiology Radiation Oncology; PCP Internal Medicine Medical Oncology; Visit Provider Internal Medicine Medical Oncology
DX: C34.90 Malignant neoplasm of unspecified part of unspecified bronchus or lung (principal); Z53.9 Procedure and treatment not carried out, unspecified reason
CPT/HCPCS: 36592; 71260; 74177; 80053; 83516; 84443; 85025; 96413; 99214; A4222; J7050; J9173; Q9967

== ENCOUNTER 2023-10-30 09:30 | Oncology outpatient (recurring) (ONCR) | payer MEDICARE, SELFPAY ==
[2023-10-23 16:00] LABS: Basophils # 0.1 10^3/uL (0.0-0.1); Basophils % 1.5 %; Eosinophils # 0.3 10^3/uL (0.0-0.8); Eosinophils % 4.6 %; Hematocrit 26.9 % (36-47); Lymphocytes # 1.6 10^3/uL (0.8-4.8); Lymphocytes % 21.4 %; Mean Corpuscular HGB Conc 33.1 g/dL (30-55); Mean Corpuscular Hemoglobin 31.7 pg (27-33); Mean Corpuscular Volume 95.7 fl (85-98); Monocytes # 0.9 10^3/uL (0.2-0.9); Monocytes % 11.6 %; Neutrophils % 60.5 %; Nucleated Red Blood Cells % 0 %; Platelet Count 180 10^3/cmm (157-399); Red Blood Count 2.81 10^6/uL (3.85-5.65); Red Cell Distribution Width 18.4 % (12.1-15.1); White Blood Count 7.43 10^3/uL (3.29-11.43)
[2023-10-23 16:20] LABS: Alanine Aminotransferase 16 U/L (0-33); Albumin Level 3.7 g/dL (3.5-5.2); Alkaline Phosphatase 95 U/L (35-105); Anion Gap 16.3 (5-19); Aspartate Amino Transferase 18 U/L (0-32); Blood Urea Nitrogen 16 mg/dL (8-23); Calcium 8.6 mg/dL (8.5-10.5); Carbon Dioxide 23 mmol/L (22-29); Chloride 98 mmol/L (98-107); Globulin 2.9 g/dL (1.3-4.6); Glucose 89 mg/dL (65-115); Osmolality Calculated 277 mOsm/kg (285-295); Potassium 4.3 mmol/L (3.5-5.1); Sodium 133 mmol/L (136-145); Total Bilirubin 0.4 mg/dL (0.15-1.2); Total Protein 6.6 g/dL (6.6-8.7)
[2023-10-24 14:52] LABS: Iron 51 ug/dL (37-145); Percent Saturation 23.5 % (20-50); Total Iron Binding Capacity 217 mcg/dl; Unsaturated Iron Binding 166 ug/dL (112-347)
[2023-10-30 09:53] LABS: Basophils # 0.1 10^3/uL (0.0-0.1); Eosinophils # 0.4 10^3/uL (0.0-0.8); Eosinophils % 5.5 %; Hematocrit 30.2 % (36-47); Lymphocytes % 11.9 %; Mean Corpuscular HGB Conc 33.1 g/dL (30-55); Mean Corpuscular Hemoglobin 32.7 pg (27-33); Mean Corpuscular Volume 98.7 fl (85-98); Mean Platelet Volume 8.4 fL (7.4-10.4); Monocytes # 0.6 10^3/uL (0.2-0.9); Monocytes % 7.8 %; Neutrophils # 5.87 10^3/uL (1.8-7.7); Neutrophils % 73.5 %; Nucleated Red Blood Cells % 0 %; Platelet Count 172 10^3/cmm (157-399); Red Blood Count 3.06 10^6/uL (3.85-5.65); Red Cell Distribution Width 18.2 % (12.1-15.1); White Blood Count 7.98 10^3/uL (3.29-11.43)
[2023-10-30 10:18] LABS: Alanine Aminotransferase 15 U/L (0-33); Albumin Level 3.9 g/dL (3.5-5.2); Alkaline Phosphatase 89 U/L (35-105); Anion Gap 15.3 (5-19); Aspartate Amino Transferase 17 U/L (0-32); Blood Urea Nitrogen 17 mg/dL (8-23); Calcium 9.1 mg/dL (8.5-10.5); Carbon Dioxide 24 mmol/L (22-29); Chloride 100 mmol/L (98-107); Glucose 78 mg/dL (65-115); Osmolality Calculated 280 mOsm/kg (285-295); Potassium 4.3 mmol/L (3.5-5.1); Sodium 135 mmol/L (136-145); Thyroid Stimulating Hormone 0.52 uIU/mL (0.27-4.20); Total Bilirubin 0.4 mg/dL (0.15-1.2); Total Protein 6.9 g/dL (6.6-8.7)
[2023-10-30 12:28] VITALS: BP 132/52; PULSE 56; RESP 17; TEMP 36.6; O2SAT 96
[2023-10-30] MEDS: sodium chloride 0.9% 250 ML 100 ML IV (12:38)
[2023-10-30] MEDS: durvalumab 1,500 MG in sodium chloride 0.9% 250 ML 280 MG IV (12:40)
[2023-10-30 14:00] VITALS: BP 153/54; PULSE 58; RESP 17; TEMP 36.4; O2SAT 96
--- NOTE | 2023-10-30 15:21 | PC.NURSE ---
1415- Right basilic vein picc line removal completed as ordered. Removed per protocol and pressure bandage applied. Patient tolerated well. Patient and daughter instructed on post care of picc line removal site and to remove pressure bandage of gauze/bioclusive and light coban wrap after 24 hours. Patient and daughter verbalized understanding with all instructions and complications to report. Patient leaves ambulatory using her quad cane, daughter is assisting with her and providing transportation. Stable upon leaving. -ELIAS Calvin
== END 2023-11-21 23:59 | disposition home or self-care (01) ==
PROVIDERS: Absent Provider Radiology Radiation Oncology; PCP Internal Medicine Medical Oncology; Visit Provider Internal Medicine Medical Oncology
DX: Z53.9 Procedure and treatment not carried out, unspecified reason; Z51.12 Encounter for antineoplastic immunotherapy; Z79.899 Other long term (current) drug therapy; I10 Essential (primary) hypertension; Z87.891 Personal history of nicotine dependence; Z92.3 Personal history of irradiation; C79.51 Secondary malignant neoplasm of bone; C78.7 Secondary malignant neoplasm of liver and intrahepatic bile duct; C77.1 Secondary and unspecified malignant neoplasm of intrathoracic lymph nodes; C34.81 Malignant neoplasm of overlapping sites of right bronchus and lung; D64.9 Anemia, unspecified; Z95.828 Presence of other vascular implants and grafts
CPT/HCPCS: 36415; 36592; 80053; 83540; 83550; 84443; 85025; 96413; 99214; A4222; J7050; J9173

== ENCOUNTER 2023-11-27 09:19 | Oncology outpatient (recurring) (ONCR) | payer MEDICARE, SELFPAY ==
[2023-11-27 09:37] LABS: Basophils # 0.1 10^3/uL (0.0-0.1); Basophils % 0.9 %; Eosinophils # 0.1 10^3/uL (0.0-0.8); Eosinophils % 1.4 %; Hematocrit 30.1 % (36-47); Lymphocytes # 1.2 10^3/uL (0.8-4.8); Lymphocytes % 15.7 %; Mean Corpuscular HGB Conc 34.6 g/dL (30-55); Mean Corpuscular Hemoglobin 34.7 pg (27-33); Mean Corpuscular Volume 100.3 fl (85-98); Mean Platelet Volume 8.3 fL (7.4-10.4); Monocytes # 0.8 10^3/uL (0.2-0.9); Monocytes % 9.5 %; Neutrophils % 72.1 %; Nucleated Red Blood Cells % 0 %; Platelet Count 181 10^3/cmm (157-399); Red Cell Distribution Width 14.1 % (12.1-15.1)
[2023-11-27 09:52] LABS: Alanine Aminotransferase 15 U/L (0-33); Albumin Level 3.9 g/dL (3.5-5.2); Alkaline Phosphatase 96 U/L (35-105); Anion Gap 15.6 (5-19); Aspartate Amino Transferase 18 U/L (0-32); Blood Urea Nitrogen 19 mg/dL (8-23); Calcium 9.1 mg/dL (8.5-10.5); Carbon Dioxide 22 mmol/L (22-29); Chloride 103 mmol/L (98-107); Glucose 109 mg/dL (65-115); Osmolality Calculated 285 mOsm/kg (285-295); Potassium 4.6 mmol/L (3.5-5.1); Sodium 136 mmol/L (136-145); Total Bilirubin 0.4 mg/dL (0.15-1.2); Total Protein 6.9 g/dL (6.6-8.7)
[2023-11-27 10:21] LABS: Thyroid Stimulating Hormone 0.41 uIU/mL (0.27-4.20)
[2023-11-27 11:30] VITALS: BP 145/70; PULSE 58; RESP 16; TEMP 36.4; O2SAT 95
[2023-11-27] MEDS: durvalumab 1,500 MG in sodium chloride 0.9% 250 ML 280 MG IV (11:47)
[2023-11-27 12:52] VITALS: BP 138/53; PULSE 57; RESP 16; O2SAT 95
== END 2023-12-22 23:59 | disposition home or self-care (01) ==
PROVIDERS: Nurse Practitioner Family; Absent Provider Radiology Radiation Oncology; PCP Internal Medicine Medical Oncology; Visit Provider Internal Medicine Medical Oncology
DX: Z51.12 Encounter for antineoplastic immunotherapy (principal); C34.81 Malignant neoplasm of overlapping sites of right bronchus and lung; C79.51 Secondary malignant neoplasm of bone; C78.7 Secondary malignant neoplasm of liver and intrahepatic bile duct; C77.1 Secondary and unspecified malignant neoplasm of intrathoracic lymph nodes; D64.9 Anemia, unspecified; I10 Essential (primary) hypertension; Z79.899 Other long term (current) drug therapy; Z87.891 Personal history of nicotine dependence; Z92.3 Personal history of irradiation; Z95.828 Presence of other vascular implants and grafts; R53.83 Other fatigue
CPT/HCPCS: 80053; 84443; 85025; 96413; 99214; A4222; J7050; J9173

== ENCOUNTER 2023-12-25 09:23 | Oncology outpatient (recurring) (ONCR) | payer MEDICARE, SELFPAY ==
[2023-12-25 09:57] LABS: Basophils # 0.1 10^3/uL (0.0-0.1); Eosinophils # 0.1 10^3/uL (0.0-0.8); Hematocrit 35.8 % (36-47); Lymphocytes # 0.9 10^3/uL (0.8-4.8); Lymphocytes % 13.5 %; Mean Corpuscular HGB Conc 33.5 g/dL (30-55); Mean Corpuscular Hemoglobin 33.7 pg (27-33); Mean Corpuscular Volume 100.6 fl (85-98); Mean Platelet Volume 8.4 fL (7.4-10.4); Monocytes # 0.7 10^3/uL (0.2-0.9); Monocytes % 9.6 %; Neutrophils # 5.12 10^3/uL (1.8-7.7); Neutrophils % 73.6 %; Nucleated Red Blood Cells % 0 %; Platelet Count 151 10^3/cmm (157-399); Red Blood Count 3.56 10^6/uL (3.85-5.65); Red Cell Distribution Width 12.3 % (12.1-15.1); White Blood Count 6.96 10^3/uL (3.29-11.43)
[2023-12-25 10:30] LABS: Alanine Aminotransferase 22 U/L (0-33); Albumin Level 4.2 g/dL (3.5-5.2); Alkaline Phosphatase 95 U/L (35-105); Anion Gap 17.7 (5-19); Aspartate Amino Transferase 22 U/L (0-32); Blood Urea Nitrogen 15 mg/dL (8-23); Calcium 9.1 mg/dL (8.5-10.5); Carbon Dioxide 23 mmol/L (22-29); Chloride 103 mmol/L (98-107); Globulin 3.1 g/dL (1.3-4.6); Glucose 72 mg/dL (65-115); Osmolality Calculated 287 mOsm/kg (285-295); Potassium 4.7 mmol/L (3.5-5.1); Sodium 139 mmol/L (136-145); Thyroid Stimulating Hormone 0.93 uIU/mL (0.27-4.20); Total Bilirubin 0.5 mg/dL (0.15-1.2); Total Protein 7.3 g/dL (6.6-8.7)
[2023-12-25] MEDS: durvalumab 1,500 MG in sodium chloride 0.9% 250 ML 280 MG IV (11:50)
[2023-12-25 15:39] VITALS: BP 138/80; RESP 16; O2SAT 98
== END 2024-01-21 23:59 | disposition home or self-care (01) ==
PROVIDERS: Nurse Practitioner Family; Absent Provider Radiology Radiation Oncology; PCP Internal Medicine Medical Oncology; Visit Provider Internal Medicine Medical Oncology
DX: Z51.12 Encounter for antineoplastic immunotherapy (principal); C34.81 Malignant neoplasm of overlapping sites of right bronchus and lung; C79.51 Secondary malignant neoplasm of bone; C78.7 Secondary malignant neoplasm of liver and intrahepatic bile duct; C77.1 Secondary and unspecified malignant neoplasm of intrathoracic lymph nodes; D64.9 Anemia, unspecified; I10 Essential (primary) hypertension; Z79.899 Other long term (current) drug therapy; Z87.891 Personal history of nicotine dependence; Z92.3 Personal history of irradiation; Z95.828 Presence of other vascular implants and grafts; R53.83 Other fatigue; Z53.9 Procedure and treatment not carried out, unspecified reason; C34.31 Malignant neoplasm of lower lobe, right bronchus or lung
CPT/HCPCS: 80053; 84443; 85025; 96413; 99214; A4222; J7050; J9173

== ENCOUNTER 2024-01-29 09:12 | Oncology outpatient (recurring) (ONCR) | payer MEDICARE, SELFPAY ==
[2024-01-29 10:06] LABS: Basophils % 0.6 %; Eosinophils # 0.1 10^3/uL (0.0-0.8); Eosinophils % 1.7 %; Hematocrit 33.3 % (36-47); Lymphocytes % 15.5 %; Mean Corpuscular HGB Conc 33.9 g/dL (30-55); Mean Corpuscular Hemoglobin 33.9 pg (27-33); Mean Platelet Volume 8.7 fL (7.4-10.4); Monocytes # 0.6 10^3/uL (0.2-0.9); Monocytes % 10.1 %; Neutrophils # 4.53 10^3/uL (1.8-7.7); Neutrophils % 71.6 %; Nucleated Red Blood Cells % 0 %; Platelet Count 160 10^3/cmm (157-399); Red Blood Count 3.33 10^6/uL (3.85-5.65); White Blood Count 6.33 10^3/uL (3.29-11.43)
[2024-01-29 10:34] LABS: Alanine Aminotransferase 19 U/L (0-33); Albumin Level 3.9 g/dL (3.5-5.2); Alkaline Phosphatase 84 U/L (35-105); Blood Urea Nitrogen 19 mg/dL (8-23); Carbon Dioxide 24 mmol/L (22-29); Chloride 101 mmol/L (98-107); Glucose 73 mg/dL (65-115); Osmolality Calculated 279 mOsm/kg (285-295); Sodium 134 mmol/L (136-145); Total Bilirubin 0.4 mg/dL (0.15-1.2); Total Protein 6.9 g/dL (6.6-8.7)
[2024-01-29 10:38] LABS: Anion Gap 13.8 (5-19); Potassium 4.8 mmol/L (3.5-5.1)
[2024-01-29 10:39] LABS: Aspartate Amino Transferase 24 U/L (0-32)
[2024-01-29] MEDS: durvalumab 1,500 MG in sodium chloride 0.9% 250 ML 280 MG IV (12:27)
[2024-01-29 13:35] VITALS: BP 174/53; PULSE 67; RESP 16; TEMP 36; O2SAT 93
== END 2024-02-21 23:59 | disposition home or self-care (01) ==
PROVIDERS: Nurse Practitioner Family; Absent Provider Radiology Radiation Oncology; PCP Internal Medicine Medical Oncology; Visit Provider Internal Medicine Medical Oncology
DX: Z51.12 Encounter for antineoplastic immunotherapy (principal); C34.31 Malignant neoplasm of lower lobe, right bronchus or lung; C79.51 Secondary malignant neoplasm of bone; C78.7 Secondary malignant neoplasm of liver and intrahepatic bile duct; C77.1 Secondary and unspecified malignant neoplasm of intrathoracic lymph nodes; Z79.899 Other long term (current) drug therapy; Z87.891 Personal history of nicotine dependence
CPT/HCPCS: 80053; 85025; 96413; 99214; A4222; J7050; J9173

== ENCOUNTER 2024-02-25 08:45 | Oncology outpatient (recurring) (ONCR) | payer MEDICARE, SELFPAY ==
[2024-02-25 09:13] LABS: Basophils # 0.1 10^3/uL (0.0-0.1); Basophils % 0.7 %; Eosinophils # 0.2 10^3/uL (0.0-0.8); Eosinophils % 3.5 %; Hematocrit 31.7 % (36-47); Lymphocytes # 1.1 10^3/uL (0.8-4.8); Mean Corpuscular HGB Conc 33.1 g/dL (30-55); Mean Corpuscular Hemoglobin 33.1 pg (27-33); Mean Platelet Volume 8.3 fL (7.4-10.4); Monocytes # 0.8 10^3/uL (0.2-0.9); Monocytes % 12.1 %; Neutrophils # 4.61 10^3/uL (1.8-7.7); Nucleated Red Blood Cells % 0 %; Platelet Count 175 10^3/cmm (157-399); Red Blood Count 3.17 10^6/uL (3.85-5.65); Red Cell Distribution Width 12.1 % (12.1-15.1); White Blood Count 6.88 10^3/uL (3.29-11.43)
[2024-02-25 09:30] LABS: Alanine Aminotransferase 22 U/L (0-33); Alkaline Phosphatase 98 U/L (35-105); Anion Gap 14.9 (5-19); Aspartate Amino Transferase 22 U/L (0-32); Blood Urea Nitrogen 21 mg/dL (8-23); Calcium 8.7 mg/dL (8.5-10.5); Carbon Dioxide 24 mmol/L (22-29); Chloride 96 mmol/L (98-107); Creatinine Clr Calc Pharmacy 35.4418; Globulin 2.1 g/dL (1.3-4.6); Glucose 78 mg/dL (65-115); Osmolality Calculated 272 mOsm/kg (285-295); Potassium 4.9 mmol/L (3.5-5.1); Sodium 130 mmol/L (136-145); Total Bilirubin 0.7 mg/dL (0.15-1.2); Total Protein 6.1 g/dL (6.6-8.7)
[2024-02-25 09:54] LABS: Thyroid Stimulating Hormone 1.77 uIU/mL (0.27-4.20)
[2024-02-25] MEDS: durvalumab 1,500 MG in sodium chloride 0.9% 250 ML 280 MG IV (10:46)
[2024-02-25 11:50] VITALS: BP 163/72; PULSE 52; RESP 16; TEMP 35.9; O2SAT 98
== END 2024-03-22 23:59 | disposition home or self-care (01) ==
PROVIDERS: Nurse Practitioner; Nurse Practitioner Family; Absent Provider Radiology Radiation Oncology; PCP Internal Medicine Medical Oncology; Visit Provider Internal Medicine Medical Oncology
DX: Z51.12 Encounter for antineoplastic immunotherapy (principal); C34.31 Malignant neoplasm of lower lobe, right bronchus or lung; C79.51 Secondary malignant neoplasm of bone; C78.7 Secondary malignant neoplasm of liver and intrahepatic bile duct; C77.1 Secondary and unspecified malignant neoplasm of intrathoracic lymph nodes; Z79.899 Other long term (current) drug therapy; Z87.891 Personal history of nicotine dependence; Z53.9 Procedure and treatment not carried out, unspecified reason; I10 Essential (primary) hypertension
CPT/HCPCS: 80053; 84443; 85025; 96413; 99214; A4222; J7050; J9173

== ENCOUNTER 2024-04-22 08:00 | Oncology outpatient (recurring) (ONCR) | payer MEDICARE, SELFPAY ==
[2024-03-25 09:01] LABS: Basophils # 0.1 10^3/uL (0.0-0.1); Basophils % 0.8 %; Eosinophils # 0.1 10^3/uL (0.0-0.8); Eosinophils % 1.7 %; Hematocrit 33.9 % (36-47); Lymphocytes % 13.8 %; Mean Platelet Volume 8.5 fL (7.4-10.4); Monocytes # 0.8 10^3/uL (0.2-0.9); Neutrophils # 5.14 10^3/uL (1.8-7.7); Neutrophils % 72.4 %; Nucleated Red Blood Cells % 0 %; Platelet Count 160 10^3/cmm (157-399); Red Blood Count 3.39 10^6/uL (3.85-5.65)
[2024-03-25 09:35] LABS: Alanine Aminotransferase 19 U/L (0-33); Albumin Level 4.1 g/dL (3.5-5.2); Alkaline Phosphatase 99 U/L (35-105); Anion Gap 17.3 (5-19); Aspartate Amino Transferase 21 U/L (0-32); Blood Urea Nitrogen 18 mg/dL (8-23); Calcium 9.1 mg/dL (8.5-10.5); Carbon Dioxide 23 mmol/L (22-29); Chloride 99 mmol/L (98-107); Creatinine Clr Calc Pharmacy 34.7088; Globulin 2.7 g/dL (1.3-4.6); Glucose 82 mg/dL (65-115); Osmolality Calculated 281 mOsm/kg (285-295); Potassium 4.3 mmol/L (3.5-5.1); Sodium 135 mmol/L (136-145); Thyroid Stimulating Hormone 1.32 uIU/mL (0.27-4.20); Total Bilirubin 0.4 mg/dL (0.15-1.2); Total Protein 6.8 g/dL (6.6-8.7)
[2024-03-25] MEDS: durvalumab 1,500 MG in sodium chloride 0.9% 250 ML 280 MG IV (11:06)
[2024-03-25 12:20] VITALS: BP 178/84; PULSE 100; RESP 18; TEMP 36.6; O2SAT 97
--- NOTE | 2024-04-18 08:34 | PETR_ITS ---
PROCEDURE INFORMATION: Exam: PET/CT Skull Base to Mid-thigh Exam date and time: 04/18/2024 10:18 AM Age: 84 years old Clinical indication: Condition or disease; Primary cancer: Lung cancer; Follow-up oncological assessment; Prior surgery; Surgery date: 6+ months; Surgery type: Heart stents, gb, hernia, colon, stomach, left hip LABS AND CLINICAL REPORTS: Glucose: 110 mg/dl Treatment strategy for malignancy (PET staging): Restaging (PS) TECHNIQUE: Imaging protocol: Following at least four-hour fasting and following the injection of radiopharmaceutical, low dose CT images were obtained. Then, PET images were obtained. Attenuation corrected images were constructed using the CT scan. Fused images of PET and CT were reviewed. The standardized uptake values (SUV) reported below are maximum values within a region of interest, expressed in gm/ml. Exam includes orbital meatal line to mid-thigh. Radiopharmaceutical: 10.7 mCi F-18 FDG (Fluorodeoxyglucose), IV. Injection site: left ac COMPARISON: 1. PT PET WB melanoma INITIAL [id number] 05/22/2023 9:[address] chest abdpel w/*[id number] 09/26/2023 9:33 AM FINDINGS: Brain: Visualized brain has normal physiologic uptake. Pharynx: No abnormal uptake. Larynx: Symmetric FDG uptake without underlying CT abnormality is likely benign. Lungs, pleura and trachea: FDG avid 1.8 x 1.5 cm right upper lobe nodule on axial image 243 with mild central calcification showing SUV max 10.9, barely perceptible in September 2023. Biapical pleural-parenchymal scarring. Mild upper lung predominant emphysematous change. Non FDG avid 4 mm right upper lobe nodule on axial image 248 previously measured 2 mm in September 2023 and 1 mm in April 2023. Scattered calcified granulomata. Stable rabag-cozeeqn-lpaf-left lower lobe scarring. Mild bilateral posterior lower pleural thickening versus trace effusions. Heart: Normal physiologic uptake. Prior TAVR. Coronary arteries: Heavy coronary artery calcifications. Mediastinal space: No abnormal uptake. Diaphragm: Small hiatal hernia. Liver: Multiple FDG avid hypodense hepatic masses, index at the left upper lobe measuring approximately 4.7 x 4.4 cm on axial image 186 with SUV max 8.6. Gallbladder and biliary ducts: No abnormal uptake. Prior cholecystectomy. Pancreas: No abnormal uptake. Spleen: No abnormal uptake. Calcified granulomata. Adrenal glands: No abnormal uptake. Kidneys and ureters: Normal physiologic uptake. Photopenic fluid density right renal cyst. Stomach and bowel: No abnormal uptake. Colonic diverticulosis with focal FDG uptake at a sigmoid colon diverticulum showing SUV max 5.2 on axial image 104. Reproductive: The uterus is surgically absent. Vasculature: No abnormal uptake. Heavy systemic atherosclerotic calcification without aortic aneurysm. Lymph nodes: Compared to September 2023, worsened lymphadenopathy with right paratracheal node measuring 8 mm in the short axis on axial image 251 showing SUV max 15.4, lower right partially calcified paratracheal node measuring approximately 1.4 cm in the short axis on axial image 236 with SUV max 5.1, right hilar FDG uptake without discretely measurable node showing SUV max 3.2 on axial image 219, and upper abdominal node measuring 8 mm in the short axis on axial image 170 showing SUV max 3.9. Skeleton: No abnormal uptake in the visualized axial and appendicular skeleton. Degenerative changes along the spine. Mild levoconvex lumbar spine curvature. Chronic fracture deformity of the proximal left femur with intramedullary nail and screw fixation. Soft tissues: Linear FDG uptake along bilateral neck, right shoulder, and vaakl-nxvjrus-sgjd-left upper extremity musculature as well as anteromedial right thigh without underlying CT abnormality is likely physiologic activation or strain. METRICS: Mediastinal blood pool: SUV mean 1.8 Liver uptake: SUV mean 2.2 PET/PET skull to thigh SUBS [id number] IMPRESSION: 1. Compared to September 2023, disease progression with increased FDG avid 1.8 cm right upper lobe nodule, increased 4 mm right upper lobe nodule too small to accurately assess for FDG uptake, worsened lymphadenopathy (mediastinal, right hilar, and upper abdominal) and developed multiple FDG avid hypodense hepatic masses. Overall findings are mixed compared to April 2023 PET-CT. 2. Colonic diverticulosis with focal FDG uptake at a sigmoid colon diverticulum suspected to be inflammatory, less likely neoplastic.
[2024-04-22 08:27] LABS: Basophils # 0.1 10^3/uL (0.0-0.1); Basophils % 0.8 %; Eosinophils # 0.2 10^3/uL (0.0-0.8); Eosinophils % 2.3 %; Hematocrit 31.9 % (36-47); Lymphocytes % 15.5 %; Mean Corpuscular HGB Conc 33.2 g/dL (30-55); Mean Corpuscular Hemoglobin 33.7 pg (27-33); Mean Corpuscular Volume 101.3 fl (85-98); Mean Platelet Volume 8.3 fL (7.4-10.4); Monocytes # 0.6 10^3/uL (0.2-0.9); Monocytes % 9.2 %; Neutrophils # 4.71 10^3/uL (1.8-7.7); Nucleated Red Blood Cells % 0 %; Platelet Count 177 10^3/cmm (157-399); Red Blood Count 3.15 10^6/uL (3.85-5.65); Red Cell Distribution Width 12.6 % (12.1-15.1); White Blood Count 6.53 10^3/uL (3.29-11.43)
[2024-04-22 08:52] LABS: Alanine Aminotransferase 20 U/L (0-33); Alkaline Phosphatase 105 U/L (35-105); Anion Gap 14.4 (5-19); Aspartate Amino Transferase 23 U/L (0-32); Blood Urea Nitrogen 19 mg/dL (8-23); Calcium 9.5 mg/dL (8.5-10.5); Carbon Dioxide 23 mmol/L (22-29); Chloride 102 mmol/L (98-107); Creatinine Clr Calc Pharmacy 36.9324; Glucose 79 mg/dL (65-115); Osmolality Calculated 281 mOsm/kg (285-295); Potassium 4.4 mmol/L (3.5-5.1); Sodium 135 mmol/L (136-145); Thyroid Stimulating Hormone 3.13 uIU/mL (0.27-4.20); Total Bilirubin 0.4 mg/dL (0.15-1.2)
[2024-04-22] MEDS: durvalumab 1,500 MG in sodium chloride 0.9% 250 ML 280 MG IV (09:36)
[2024-04-22 10:44] VITALS: BP 124/78; PULSE 78; RESP 17; TEMP 36.6; O2SAT 98
[2024-04-26 23:00] LABS: TSH Receptor Binding Antibody <1.00 IU/L (< OR = 2.00)
== END 2024-04-22 23:59 | disposition home or self-care (01) ==
PROVIDERS: Nurse Practitioner Family; Absent Provider Radiology Radiation Oncology; PCP Internal Medicine Medical Oncology; Visit Provider Internal Medicine Medical Oncology
DX: Z51.12 Encounter for antineoplastic immunotherapy (principal); C34.31 Malignant neoplasm of lower lobe, right bronchus or lung; Z53.9 Procedure and treatment not carried out, unspecified reason; I10 Essential (primary) hypertension; Z79.899 Other long term (current) drug therapy; Z87.891 Personal history of nicotine dependence
CPT/HCPCS: 78815; 80053; 83516; 84443; 85025; 96413; 99214; A4222; A9552; J7050; J9173

== ENCOUNTER 2024-05-27 08:00 | Oncology outpatient (recurring) (ONCR) | payer MEDICARE, SELFPAY ==
[2024-05-27 08:24] LABS: Basophils # 0.1 10^3/uL (0.0-0.1); Basophils % 0.7 %; Eosinophils # 0.2 10^3/uL (0.0-0.8); Eosinophils % 2.1 %; Hematocrit 34.1 % (36-47); Lymphocytes % 14.9 %; Mean Corpuscular Hemoglobin 33.9 pg (27-33); Mean Corpuscular Volume 99.7 fl (85-98); Mean Platelet Volume 8.5 fL (7.4-10.4); Monocytes # 0.6 10^3/uL (0.2-0.9); Monocytes % 8.9 %; Neutrophils # 5.12 10^3/uL (1.8-7.7); Neutrophils % 73.1 %; Nucleated Red Blood Cells % 0 %; Platelet Count 163 10^3/cmm (157-399); Red Blood Count 3.42 10^6/uL (3.85-5.65); Red Cell Distribution Width 12.6 % (12.1-15.1)
[2024-05-27 08:47] LABS: Alanine Aminotransferase 27 U/L (0-33); Albumin Level 4.3 g/dL (3.5-5.2); Alkaline Phosphatase 148 U/L (35-105); Anion Gap 15.9 (5-19); Aspartate Amino Transferase 30 U/L (0-32); Blood Urea Nitrogen 19 mg/dL (8-23); Calcium 9.3 mg/dL (8.5-10.5); Carbon Dioxide 24 mmol/L (22-29); Chloride 94 mmol/L (98-107); Creatinine Clr Calc Pharmacy 45.1571; Globulin 2.7 g/dL (1.3-4.6); Glucose 76 mg/dL (65-115); Osmolality Calculated 271 mOsm/kg (285-295); Potassium 3.9 mmol/L (3.5-5.1); Sodium 130 mmol/L (136-145); Thyroid Stimulating Hormone 2.03 uIU/mL (0.27-4.20); Total Bilirubin 0.4 mg/dL (0.15-1.2)
== END 2024-06-20 23:59 | disposition home or self-care (01) ==
PROVIDERS: Absent Provider Radiology Radiation Oncology; PCP Internal Medicine Medical Oncology; Visit Provider Internal Medicine Medical Oncology
DX: C34.31 Malignant neoplasm of lower lobe, right bronchus or lung (principal); C78.7 Secondary malignant neoplasm of liver and intrahepatic bile duct; I10 Essential (primary) hypertension; Z87.891 Personal history of nicotine dependence; Z79.899 Other long term (current) drug therapy
CPT/HCPCS: 80053; 84443; 85025; 99214

== ENCOUNTER 2024-06-19 07:57 | Emergency (ER) | payer MEDICARE, SELFPAY ==
[2024-06-19 08:06] VITALS: BP 134/52; PULSE 67; RESP 15; TEMP 36.8; O2SAT 95; BMI 19.3
--- NOTE | 2024-06-19 08:08 | ECG_ITS ---
[facility]24[facility] Pat Name: Angella Walls Department: Room: Gender: Female [employer]: : 1940 Requested By: Isidro De La Torre Order Number: [id number] Pipe MD: Antwon Doherty M.D. Measurements Intervals [place] Rate: 63 P: 82 TN: 198 QRS: -27 QRSD: 74 T: 71 QT: 446 QTc: 459 Interpretive Statements SINUS RHYTHM BORDERLINE LEFT AXIS DEVIATION [QRS AXIS < -20] Compared to ECG 09/11/2023 12:32:35 Ectopic atrial rhythm no longer present Ventricular premature complex(es) no longer present Myocardial infarct finding no longer present Electronically Signed On 06-21-2024 07:54:17 IOS PROGRAMMER by Antwon Doherty M.D. [email or web address]
--- NOTE | 2024-06-19 08:09 | W.ED.ABDPA2 ---
HPI - Abdominal Pain General: Chief Complaint: Abdominal Pain Stated Complaint: vomiting, abd pain, sweating Time Seen by Provider: 06/19/24 08:07 History of Present Illness: 84-year-old female presents emergency room complaining of generally not feeling well she reported having some abdominal discomfort and very nauseous yesterday she still nauseous now she tells me she has not vomited she evidently had some abdominal discomfort and took a laxative yesterday but states she had not been constipated. 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 She has had bowel obstructions in the past. She denies any hematemesis or coffee-ground emesis no fever sweats or chills. And route to the emergency room daughter drove her here. They report she had a brief syncopal episode of 15 to 20 seconds. She reports feeling very weak and nauseous with significant loss of appetite. She is not currently receiving any treatment for the cancer. Associated Symptoms: Reports nausea; Denies chills, constipation, diarrhea, dysuria, fever(s) and vomiting Related Data Home Medications ?Medication ?Instructions ?Recorded ?Confirmed cholecalciferol (vitamin D3) 10 10 mcg PO QAM 03/10/21 05/27/24 mcg (400 unit) capsule ezetimibe 10 mg tablet 10 mg PO QPM 07/06/21 05/27/24 magnesium oxide 400 mg PO QAM 12/21/21 05/27/24 albuterol sulfate 90 mcg/actuation 2 puff inhalation Q4H PRN 05/19/22 05/27/24 aerosol inhaler (ProAir HFA) Shortness Of Breath atorvastatin 40 mg tablet 40 mg PO QPM 07/10/22 05/27/24 clopidogrel 75 mg tablet (Plavix) 75 mg PO QAM 07/10/22 05/27/24 metoprolol tartrate 25 mg tablet 25 mg PO BID 06/13/23 05/27/24 albuterol sulfate 0.63 mg/3 mL 0.63 mg inhalation Q4H PRN 07/10/23 05/27/24 solution for nebulization Shortness Of Breath Or Wheezing coenzyme Q10 100 mg capsule 100 mg PO QAM 07/10/23 05/27/24 (CoQ-10) levothyroxine 50 mcg tablet 50 mcg PO BEDTIME 07/10/23 05/27/24 pantoprazole 40 mg tablet,delayed 40 mg PO QPM 07/10/23 05/27/24 release tiotropium bromide 2.5 2 puff inhalation QAM 07/10/23 05/27/24 mcg/actuation mist for inhalation (Spiriva Respimat) zinc acetate 50 mg (zinc) capsule 50 mg PO QAM 07/10/23 05/27/24 lisinopril 5 mg tablet mg PO 01/29/24 05/27/24 Previous Rx's ?Medication ?Instructions ?Recorded nystatin 100,000 unit/mL oral 5 ml PO QID 7 days #140 mL 12/25/23 suspension fluticasone 500 mcg-salmeterol 50 See Rx Instructions .Route 04/17/24 mcg/dose blistr powdr for .COMPLEX #60 ea inhalation hydrocodone 5 mg-acetaminophen 325 1 tab PO Q6H PRN pain #30 tabs 06/19/24 mg tablet ondansetron 4 mg disintegrating 4 mg PO Q6H PRN nausea and 06/19/24 tablet vomiting #30 tabs polyethylene glycol 3350 17 17 g PO DAILY #850 grams 06/19/24 gram/dose oral powder Allergies Allergy/AdvReac Type Severity Reaction Status Date / Time Macrolide Antibiotics Allergy Severe Unconscious Verified 06/19/24 08:24 Penicillins Allergy Severe Unknown Verified 06/19/24 08:24 codeine Allergy Unknown Verified 06/19/24 08:24 psyllium (From Metamucil) Allergy Unknown Verified 06/19/24 08:24 Sulfa (Sulfonamide Allergy Unknown Verified 06/19/24 08:24 Antibiotics) unknown names of antibiotics Allergy Unknown Uncoded 06/19/24 08:24 Review of Systems Const: Denies: fever(s) or chills Card: Denies: chest pain Resp: Denies: dyspnea GI: Reports: abdominal pain and nausea; Denies: vomiting, diarrhea or constipation : Denies: dysuria, urinary frequency or urinary urgency Musc: Denies: neck pain or back pain Skin/Breast: Denies: rash PFSH ED PFSH: Medical History History of transcatheter aortic valve replacement (TAVR) (2022) Small cell lung carcinoma Asthma-COPD overlap syndrome Hyponatremia Acute respiratory failure with hypoxia Pleural effusion on right Hypoxia Pharyngitis Chronic anticoagulation Atrial fibrillation Exertional dyspnea Aortic stenosis Fracture of distal end of left radius and ulna PVD (peripheral vascular disease) COPD (chronic obstructive pulmonary disease) HTN (hypertension) Surgical History S/P ORIF (open reduction internal fixation) fracture (2022) Left hip fracture History of coronary artery stent placement History of radiofrequency ablation procedure for cardiac arrhythmia Hx of resection of small bowel (2016) History of hernia repair (2021) bilateral inguinal hernia repair History of hysterectomy Family History Mother CAD (coronary artery disease) Stroke Father CAD (coronary artery disease) Lung disease Brother Diabetes Social History Smoking and tobacco/nicotine status: former use of tobacco/nicotine Quit status (tobacco/nicotine): has quit using Year quit tobacco: quit 1985 Former quit date comment: 1 ppd x 30 years Alcohol intake: never Current gender identity: Female Physical Exam Const: GENERAL APPEARANCE: cooperative ORIENTATION/CONSCIOUSNESS: Yes awake, Yes oriented to person, Yes oriented to place and Yes oriented to time HENMT: COMMON NORMALS: normocephalic, atraumatic and hearing grossly normal bilaterally HEAD & SCALP: normocephalic and atraumatic Resp: COMMON NORMALS: normal respiratory effort, No retractions, No use of accessory muscles and clear to auscultation bilaterally AUSCULTATION: clear to auscultation bilaterally Cardio: COMMON NORMALS: regular rate, regular rhythm and No murmurs present (Cardio) RATE: regular rate RHYTHM: regular rhythm GI: COMMON NORMALS: Soft to palpation and No hepatosplenomegaly present AUSCULTATION: Yes normoactive bowel sounds PALPATION: Yes Soft to palpation, No Tenderness to palpation present (GI), No Guarding due to palpation present (GI) and Yes No hepatosplenomegaly present Extremity: COMMON NORMALS: normal to inspection, capillary refill normal, no clubbing, cyanosis or edema, no calf tenderness and no pedal edema Neuro: SENSORIUM/ORIENTATION: Yes oriented to person, Yes oriented to place and Yes oriented to time Skin: COMMON NORMALS: no rashes or lesions noted GENERAL SKIN EXAM: no rashes or lesions noted Course Vital Signs: Vital signs: Vital Signs Temperature 98.3 F 06/19/24 08:06 Pulse Rate 69 06/19/24 10:37 Respiratory Rate 15 06/19/24 09:05 Blood Pressure 123/52 06/19/24 10:37 Pulse Oximetry 93 06/19/24 10:37 Oxygen Delivery Me thod Room Air 06/19/24 08:06 MDM - Abdominal Pain Medical Decision Making CT shows significant progression of her disease burden from her metastasis of her lung cancer in the abdomen. This likely the cause of her pain. There is no diverticulitis noted cystitis. Discharge home hydrocodone ondansetron to use as needed start MiraLAX daily. Discussed with patient and family recommend considering hospice to assist with pain management Medical Records I reviewed the patient's medical records. Lab Data I reviewed the patient's lab results. 06/19/24 08:29 06/19/24 08:29 Labs/Radiology: Radiology Impressions Abdomen/Pelvis CT 06/19/24 08:24 IMPRESSION: 1. Significant progression of disease since the recent PET/CT 04/18/2024. 2. Multiple 3. Progressed liver metastasis the largest in the LEFT hepatic lobe measuring 7.2 x 5.9 cm and RIGHT hepatic lobe measuring 5.2 x 4.8 cm. Additional numerous smaller metastatic lesions in the liver. 4. Progressed presumed nodular metastatic lesions along the RIGHT diaphragm at the margin of the liver. 5. Small amount of free fluid in the pelvis. 6. New and significantly progressed upper abdominal periaortic aortocaval gastrohepatic and retrocrural lymphadenopathy described above. 7. Dense vascular calcification. 8. Sigmoid diverticulosis. Laboratory Results WBC 9.17 10^3/uL (3.29-11.43) 06/19/24 08:29 RBC 3.55 10^6/uL (3.85-5.65) L 06/19/24 08:29 Hgb 11.90 g/dL (11.27-16.99) 06/19/24 08:29 Hct 34.4 % (36-47) L 06/19/24 08:29 MCV 96.9 fl (85-98) 06/19/24 08:29 MCH 33.5 pg (27-33) H 06/19/24 08:29 MCHC 34.6 g/dL (30-55) 06/19/24 08: RDW 12.3 % (12.1-15.1) 06/19/24 08: Plt Count 189 10^3/cmm (157-399) 06/19/24 08: MPV 8.5 fL (7.4-10.4) 06/19/24 08: Neut % (Auto) 79.5 % 06/19/24 08: Lymph % (Auto) 10.7 % 06/19/24 08: Bowman % (Auto) 7.9 % 06/19/24 08: Eos % (Auto) 0.8 % 06/19/24 08: Baso % (Auto) 0.8 % 06/19/24 08: Neut # (Auto) 7.30 10^3/uL (1.8-7.7) 06/19/24 08: Lymph # (Auto) 1.0 10^3/uL (0.8-4.8) 06/19/24 08: Bowman # (Auto) 0.7 10^3/uL (0.2-0.9) 06/19/24 08: Eos # (Auto) 0.1 10^3/uL (0.0-0.8) 06/19/24 08: Baso # (Auto) 0.1 10^3/uL (0.0-0.1) 06/19/24 08: Nucleated RBC % (auto) 0 % 06/19/24 08: Nucleated RBCs # 0.0 /100WBC 06/19/24 08: Sodium 129 mmol/L (136-145) L 06/19/24 08: Potassium 4.0 mmol/L (3.5-5.1) 06/19/24 08: Chloride 95 mmol/L (98-107) L 06/19/24 08: Carbon Dioxide 21 mmol/L (22-29) L 06/19/24 08: Anion Gap 17.0 (5-19) 06/19/24 08: BUN 17 mg/dL (8-23) 06/19/24 08: Creatinine 0.9 mg/dL (0.5-0.9) 06/19/24 08: GFR Calculation Not Reportable 06/19/24: Glucose 106 mg/dL (65-115) 06/19/24 08:29 Calculated Osmolality 270 mOsm/kg (285-295) L 06/19/24 08:29 Calcium 9.3 mg/dL (8.5-10.5) 06/19/24 08:29 Total Bilirubin 0.7 mg/dL (0.15-1.2) 06/19/24 08: AST 30 U/L (0-32) 06/19/24 08: ALT 26 U/L (0-33) 06/19/24 08: Alkaline Phosphatase 154 U/L (35-105) H 06/19/24 08:29 Total Protein 7.1 g/dL (6.6-8.7) 06/19/24 08: Albumin 3.9 g/dL (3.5-5.2) 06/19/24 08: Globulin 3.2 g/dL (1.3-4.6) 06/19/24 08:29 Urine Color Yellow (Yellow) 06/19/24 10:02 Urine Appearance Clear (CLEAR) 06/19/24 10:02 Urine pH 6.5 (5-7) 06/19/24 10:02 Ur Specific Doucette 1.025 (1.005-1.030) 06/19/24 10:02 Urine Protein Negative (Negative) 06/19/24 10:02 Urine Glucose (UA) Negative (Normal) 06/19/24 10:02 Urine Ketones Negative (Negative) 06/19/24 10:02 Urine Blood Negative (Negative) 06/19/24 10:02 Urine Nitrate Negative (Negative) 06/19/24 10:02 Urine Bilirubin Negative (Negative) 06/19/24 10:02 Urine Urobilinogen 0.2 mg/dL (Negative) 06/19/24 10:02 Ur Leukocyte Esterase Trace (Negative) A 06/19/24 10:02 Urine RBC 0-4 /hpf (0-2) H 06/19/24 10:02 Urine WBC 0-4 /hpf (0-5) H 06/19/24 10:02 Ur Squamous Epith Cells 0-4 /hpf (0-5) H 06/19/24 10:02 Amorphous Sediment Not Reportable 06/19/24 10:02 Urine Bacteria Trace /hpf (NONE) 06/19/24 10:02 Influenza A (PCR) Negative (Negative) 06/19/24 08:22 Influenza Type B (PCR) Negative (Negative) 06/19/24 08:22 RSV (PCR) Negative (Negative) 06/19/24 08:22 SARS-CoV-2 (PCR) Negative (Negative) 06/19/24 08:22 All radiology interpretation(s) finalized by discharge Discharge Plan Discharge Patient Disposition: Home Clinical Impression: Small cell lung carcinoma, Abdominal pain, Cancer, metastatic to liver Condition: Stable Prescriptions: New hydrocodone-acetaminophen 5-325 mg tablet 1 tab PO Q6H PRN (Reason: pain) Qty: 30 0RF ondansetron 4 mg tablet,disintegrating 4 mg PO Q6H PRN (Reason: nausea and vomiting) Qty: 30 0RF polyethylene glycol 3350 17 gram/dose powder 17 g PO DAILY Qty: 850 0RF No Action cholecalciferol (vitamin D3) 10 mcg (400 unit) capsule 10 mcg PO QAM ezetimibe 10 mg tablet 10 mg PO QPM magnesium oxide 400 mg magnesium tablet 400 mg PO QAM lisinopril 5 mg tablet PO atorvastatin 40 mg tablet 40 mg PO QPM clopidogrel [Plavix] 75 mg tablet 75 mg PO QAM metoprolol tartrate 25 mg tablet 25 mg PO BID nystatin 100,000 unit/mL suspension 5 ml PO QID 7 Days Qty: 140 0RF Rx Instructions: swish and spit fluticasone propion-salmeterol 500-50 mcg/dose blister with device See Rx Instructions .ROUTE .COMPLEX Qty: 60 0RF Dose Instruction: INHALE 1 DOSE BY MOUTH EVERY 12 HOURS Rx Instructions: INHALE 1 DOSE BY MOUTH EVERY 12 HOURS albuterol sulfate [ProAir HFA] 90 mcg/actuation HFA aerosol inhaler 2 puff inhalation Q4H PRN (Reason: Shortness Of Breath) albuterol sulfate 0.63 mg/3 mL solution for nebulization 0.63 mg inhalation Q4H PRN (Reason: Shortness Of Breath Or Wheezing) zinc acetate 50 mg (zinc) Capsule 50 mg PO QAM levothyroxine 50 mcg tablet 50 mcg PO BEDTIME coenzyme Q10 [CoQ-10] 100 mg Capsule 100 mg PO QAM pantoprazole 40 mg tablet,delayed release (DR/EC) 40 mg PO QPM Spiriva Respimat 2.5 mcg/actuation mist 2 puff inhalation QAM Discharge Orders: Discharge ED (Routine); Ordered 06/19/24 Ordered By: Isidro Venegas Referrals: Jessica Sharif FNP [Primary Care Provider] - Discharge Diet: Usual diet Discharge Activity: Resume usual activity Patient Instructions: Abdominal Pain (ED), Opioid Safety, Pain Management Activity Restrictions/Additional Instructions: [facility]. It is very important that you follow up as instructed or that you return to the Emergency Department should you have concerns or if your condition changes or worsens in any way. You are seen in the emergency room with complaints of abdominal pain. CT did not show anything acute but did show progression of the metastatic lesions in the abdomen from your lung cancer. Suspect this is the cause of your worsening abdominal pain. As we discussed recommend following up with your primary care doctor to establish with hospice. We did you have your prescriptions for hydrocodone for pain, ondansetron for nausea and vomiting, and polyethylene glycol to prevent constipation. Print Language: Turkmen Coding Level of Care Code ED Cloud Architect for Danielle Colbert
--- NOTE | 2024-06-19 08:24 | CT_ITS ---
WS: [id number] CT ABDOMEN PELVIS TECHNIQUE: Contrast-enhanced CT of the abdomen and pelvis with coronal and sagittal reformatted images. CLINICAL INFORMATION: abd pain/history lungs CA with liver mets COMPARISON: None. DLP: 335.[address] scans at [facility] use at least one of these dose optimization techniques: automated exposure control; mA and/or kV adjustment per patient size (includes targeted exams where dose is matched to clinical indication); or iterative reconstruction. FINDINGS: Significant progression of disease compared to 04/18/2024. Enlarging and progressed hepatic metastasis the largest in the LEFT buttock lobe measuring 7.2 x 5.9 cm RIGHT hepatic lobe measuring 5.2 x 4.8 cm. Additional smaller progressed hepatic metastasis in both lobes. Cholecystectomy clips. Nodular me tastatic implants along the undersurface of the RIGHT diaphragm about the liver. Lung bases are well aerated. Trace fluid in the lung bases. Normal GE junction. Dilatation of the common bile duct likely physiologic postcholecystectomy appears stable. Portal vein and splenic vein are patent. Dense vascular calcification. Splenic granulomas. Bulky retroperitoneal and periaortic lymphadenopathy. Bulky lymphadenopathy in the upper abdomen and ariella hepatis appears significantly progressed largest periaortic and aortocaval lymph nodes measuring up to 2 cm Adrenal glands are normal. Normal renal parenchymal enhancement. No hydronephrosis. Renal cyst. Bilateral parenchymal scarring. New retrocrural lymphadenopathy. Bulky lymphadenopathy along the celiac axis and gastrohepatic. Small amount of free fluid in the pelvis. Sigmoid diverticulosis. Tiny fat- containing umbilical hernia. Disc base narrowing L3-L5. Prior postoperative changes intramedullary grace and screw fixation LEFT hip. CT/CT abdomen pelvis w con* [id number] IMPRESSION: 1. Significant progression of disease since the recent PET/CT 04/18/2024. 2. Multiple 3. Progressed liver metastasis the largest in the LEFT hepatic lobe measuring 7.2 x 5.9 cm and RIGHT hepatic lobe measuring 5.2 x 4.8 cm. Additional numerous smaller metastatic lesions in the liver. 4. Progressed presumed nodular metastatic lesions along the RIGHT diaphragm at the margin of the liver. 5. Small amount of free fluid in the pelvis. 6. New and significantly progressed upper abdominal periaortic aortocaval king rohepatic and retrocrural lymphadenopathy described above. 7. Dense vascular calcification. 8. Sigmoid diverticulosis.
[2024-06-19 08:27] VITALS: BP 134/52; PULSE 65; RESP 20; O2SAT 95
[2024-06-19 08:35] LABS: Basophils # 0.1 10^3/uL (0.0-0.1); Basophils % 0.8 %; Eosinophils # 0.1 10^3/uL (0.0-0.8); Eosinophils % 0.8 %; Hematocrit 34.4 % (36-47); Lymphocytes % 10.7 %; Mean Corpuscular HGB Conc 34.6 g/dL (30-55); Mean Corpuscular Hemoglobin 33.5 pg (27-33); Mean Corpuscular Volume 96.9 fl (85-98); Mean Platelet Volume 8.5 fL (7.4-10.4); Monocytes # 0.7 10^3/uL (0.2-0.9); Monocytes % 7.9 %; Neutrophils % 79.5 %; Nucleated Red Blood Cells % 0 %; Platelet Count 189 10^3/cmm (157-399); Red Blood Count 3.55 10^6/uL (3.85-5.65); Red Cell Distribution Width 12.3 % (12.1-15.1); White Blood Count 9.17 10^3/uL (3.29-11.43)
[2024-06-19] MEDS: ondansetron 2 mg/ML SDV 2 mL 4 MG IVP (08:39)
[2024-06-19 08:55] LABS: Alanine Aminotransferase 26 U/L (0-33); Albumin Level 3.9 g/dL (3.5-5.2); Alkaline Phosphatase 154 U/L (35-105); Aspartate Amino Transferase 30 U/L (0-32); Blood Urea Nitrogen 17 mg/dL (8-23); Calcium 9.3 mg/dL (8.5-10.5); Carbon Dioxide 21 mmol/L (22-29); Chloride 95 mmol/L (98-107); Creatinine Clr Calc Pharmacy 39.8684; Globulin 3.2 g/dL (1.3-4.6); Glucose 106 mg/dL (65-115); Osmolality Calculated 270 mOsm/kg (285-295); Sodium 129 mmol/L (136-145); Total Bilirubin 0.7 mg/dL (0.15-1.2); Total Protein 7.1 g/dL (6.6-8.7)
[2024-06-19 09:05] VITALS: RESP 15; O2SAT 96
[2024-06-19] MEDS: morphine 4 mg/mL SDV 1 mL 2 MG IVP (09:05)
[2024-06-19 09:23] LABS: Influenza A NEGATIVE (Negative); Influenza B NEGATIVE (Negative); Respiratory Syncytial Virus Ce NEGATIVE (Negative); SARS-CoV-2 PCR NEGATIVE (Negative)
[2024-06-19] MEDS: iohexol 350 mg/mL 500 mL Btl (per mL) IV (09:23)
[2024-06-19] MEDS: sodium chloride 0.9% 500 ML 999 ML IV (09:46)
[2024-06-19 10:13] LABS: Bilirubin Urine Negative (Negative); Blood Urine Negative (Negative); Glucose Urine UA Negative (Normal); Ketones Urine Negative (Negative); Leukocyte Esterase Urine Trace (Negative); Nitrate Urine Negative (Negative); Protein Urine Negative (Negative); Specific Gravity, Urine 1.025 (1.005-1.030); Urine Appearance Clear (CLEAR); Urine Color Yellow (Yellow); Urobilinogen Urine 0.2 mg/dL (Negative); pH Urine 6.5 (5-7)
[2024-06-19 10:37] VITALS: BP 123/52; PULSE 69; O2SAT 93
[2024-06-19 10:42] LABS: UA Manual Slide Review YES
[2024-06-19 10:44] LABS: Add Urine Microscopic? YES; Bacteria Urine TRACE /hpf; RBC Urine 0-4 /hpf (0-2); Squamous Epithelial Cell Urine 0-4 /hpf (0-5); WBC Urine 0-4 /hpf (0-5)
[2024-06-19 10:45] LABS: Add Urine Culture? No
[2024-06-19 11:22] VITALS: BP 123/56; PULSE 67; O2SAT 93
[2024-06-19 12:10] VITALS: BP 124/57; PULSE 76; O2SAT 97
== END 2024-06-19 12:12 | disposition home or self-care (01) ==
PROVIDERS: Emergency Provider Family Medicine; PCP Nurse Practitioner Family
DX: C34.31 Malignant neoplasm of lower lobe, right bronchus or lung (principal); C78.7 Secondary malignant neoplasm of liver and intrahepatic bile duct; R10.9 Unspecified abdominal pain; Z79.02 Long term (current) use of antithrombotics/antiplatelets; Z11.52 Encounter for screening for COVID-19; Z87.891 Personal history of nicotine dependence; J44.9 Chronic obstructive pulmonary disease, unspecified; I10 Essential (primary) hypertension
CPT/HCPCS: 36415; 74177; 80053; 81001; 85025; 87637; 93005; 96361; 96374; 96375; 99285; J2270; J2405; J7040